=== PATIENT | female | born 1940 | race Caucasian/White ===

== ENCOUNTER 2016-06-25 15:45 | Emergency (ER) | payer MEDICARE, BC ==
[~2016-06-25] VITALS: Ht 157.5 cm; Wt 53.0 kg
[~2016-06-25 15:45] MED LIST: ACET500T68 PO; ALBU1.25 NEB; ALBU8.5H3 IH; AMOX1TAB58 PO; ASCO500T2 PO; ASPI81TA44 PO; AZIT250T6 PO; AZIT500T PO; CETI10TA22 PO; CHOL10003 PO; CITA40TA12 PO; ESCI20TA PO; ESTR1TAB15 PO; FLUT1DIS5 IH; FURO-69 PO; FURO80TA3 PO; GUAI-42 PO; LEVO250T25 PO; LEVO75TA5 PO; LIDO700A4 TD; MECL25TA3 PO; METH10TA4 PO; MONT10TA9 PO; OMEP20CA5 PO; ONDA-35 PO; PANT40TA5 PO; POTA20TA12 PO; POTA20TA82 PO; PRED-220 PO; PROM118S3 PO; PROM5SYR2 PO; ROFL500T PO; SULF1TAB23 PO; [UNRECOGNIZED DRUG - OTHER] PO
--- NOTE | 2016-06-25 16:27 | PHYS DOC ---
General Chief Complaint: BACK PAIN - NO INJURY Stated Complaint: LOW BACK PAIN Time Seen by MD: 15:50 Source: patient, old records Exam Limitations: no limitations Problems: History of Present Illness Initial Comments Pt is 76/F to ED c/o back pain. Pt has long h/o low back complaints, today states he has acute flare up of L low back pain. Points to left lower lumbar/SI region, denies recent injury. Sx are c/w prior exacerbations, no leg/bowel/bladder symptoms. She had pain management epidural one month ago and follows with pain mgmt. She took oxycodone 10mg before coming to ED, states it didn't help. Pain sharp/stabby, severe, worse with movement better with rest. No cp/sob/focal neurodef Timing/Duration: 4-6 hours Severity: severe Modifying Factors: worse with movement, improves with rest Associated Symptoms: other Allergies: Coded Allergies: Tetracyclines (Verified Allergy, Intermediate, Unknown, 03/04/15) adhesive (Verified Allergy, Intermediate, 03/04/15) amoxicillin (Verified Allergy, Intermediate, tingling sensation all over, 10/26/15) cefotaxime (Verified Allergy, Intermediate, 03/04/15) clavulanic acid (Verified Allergy, Intermediate, tingling sensation all over, 10/26/15) clindamycin (Verified Allergy, Intermediate, 03/04/15) vancomycin (Verified Allergy, Intermediate, 03/04/15) Past Medical History Medical History: other (chronic back pain, COPD, HLP, HTN, hypothyroid, renal insuff, UTI) Surgical History: other (kenia, CS, hysterectomy, knee replacement) Social History Smoker: non-smoker Alcohol: none Drugs: none Review of Systems Constitutional: denies chills, denies fever Respiratory: denies cough, denies shortness of breath Cardiovascular: denies chest pain, denies palpitations Gastrointestinal: denies abdominal pain, denies diarrhea, denies nausea, denies vomiting Genitourinary: denies dysuria, denies frequency, denies hematuria Musculoskeletal: see HPI Psychiatric/Neurological: see HPIdenies numbness, denies paresthesia, denies tingling, denies weakness Physical Exam General Appearance: WD/WN, mild distress Ear, Nose, Throat: hearing grossly normal, normal ENT inspection Neck: non-tender, supple Respiratory: normal breath sounds, no respiratory distress Gastrointestinal: non tender, soft Back: no CVA tenderness, no vertebral tenderness Extremities: non-tender, normal inspection Neurologic/Psychiatric: director of materials management II-XII nml as tested, no motor/sensory deficits, alert, normal mood/affect, oriented x 3, other (dtrs/strength/sensory equal/ intact b/l LE, neg SLR b/l) Skin: normal color, warm/dry Orders, Labs, Meds I discussed evaluation and treatment options, pt wants tx and d/c will return prn. She adds that she doesn't want to wait in ED to see if medication works, will return if needed. Departure Time of Disposition: 16:46 Disposition: 01 HOME, SELF-CARE Diagnosis: Acute on chronic low back pain Condition: STABLE Patient Instructions: Chronic Back Pain, Chronic Pain Management-Brief Additional Instructions: Activity as tolerated. No driving or operating machinery while sedated with meds. Continue current medications. Follow up with your doctor in 1-2 days for recheck. Return to ED with new or changing symptoms. LIZANDRO WELLS DO Jun 25, 2016 16:27
[2016-06-25] MEDS ORDERED: FENTANYL PF 100 MCG/2 ML VIAL. IM ONE (16:45)
[2016-06-25 17:30] VITALS: BP 136/54
== END 2016-06-25 17:43 | disposition home or self-care (01) ==
LOC: ER 15:45
DX: G89.29 Other chronic pain (principal); M54.5 Low back pain; J44.9 Chronic obstructive pulmonary disease, unspecified; E03.9 Hypothyroidism, unspecified; E78.5 Hyperlipidemia, unspecified; I10 Essential (primary) hypertension; Z87.440 Personal history of urinary (tract) infections; Z88.1 Allergy status to other antibiotic agents; Z88.8 Allergy status to other drugs, medicaments and biological substances; N28.9 Disorder of kidney and ureter, unspecified
CPT/HCPCS: 96372; 99284; J3010

== ENCOUNTER 2016-09-18 11:08 | Inpatient (IN) | payer MEDICARE, BC ==
[~2016-09-18] VITALS: Ht 157.5 cm; Wt 64.6 kg
[~2016-09-18 11:08] MED LIST changes: -ALBU8.5H3 IH; +ALBU8.5H8 IH; -ESCI20TA PO; +ESCITALOPRAM OX20 MG PO; +GUAI-107 PO; -GUAI-42 PO; -ONDA-35 PO; +ONDA4TAB11 PO; -ROFL500T PO; +ROFL500T7 PO
[2016-09-18] MEDS ORDERED: ALPR0.254 PO (12:04)
[2016-09-18] MEDS ORDERED: OXYC-323 PO (12:04)
[2016-09-18] MEDS ORDERED: ACET325T21 PO (12:04)
[2016-09-18] MEDS ORDERED: IPRA3AMP NEB (12:04)
[2016-09-18] MEDS ORDERED: ALBU90AE IH (12:04)
[2016-09-18] MEDS ORDERED: GUAI120L35 PO (12:10)
[2016-09-18] MEDS ORDERED: DILT240C2 PO (12:11)
[2016-09-18] MEDS ORDERED: POTA10CA PO (12:19)
[2016-09-18] MEDS ORDERED: MECL12.52 PO (12:19)
[2016-09-18] MEDS ORDERED: DOCU100C28 PO (12:19)
[2016-09-18] MEDS ORDERED: SENN-37 PO (12:21)
[2016-09-18] MEDS ORDERED: ENOX40DI SQ (12:21)
[2016-09-18] MEDS ORDERED: MAGN400O7 PO (12:23)
[2016-09-18] MEDS ORDERED: PANT40TA5 PO (12:25)
[2016-09-18] MEDS ORDERED: POLY255P PO (12:26)
[2016-09-18] MEDS ORDERED: PRED-220 PO (12:30)
[2016-09-18] MEDS ORDERED: PSYL1PAC7 PO (12:43)
[2016-09-18 14:45] VITALS: BP 143/71
[2016-09-18] MEDS ORDERED: IPRATRPIUM/ALBUTEROL 0.5/2.5MG 3 ML NEBU. NEB PRN (15:00)
[2016-09-18] MEDS ORDERED: NON FORMULARY ITEM (Albuterol Sulfate (Proair Respiclick) 1 PUFF) IH PRN (15:00)
[2016-09-18] MEDS ORDERED: MECLIZINE 12.5 MG TABLET. PO PRN (15:00)
[2016-09-18] MEDS ORDERED: MAGNESIUM HYDROXIDE 2,400 MG/30 ML ORAL.SUSP. PO PRN (15:00)
[2016-09-18] MEDS ORDERED: ONDANSETRON ODT 4 MG TAB.RAPDIS PO PRN (15:15)
[2016-09-18] MEDS ORDERED: guaiFENesin/CODEINE 100mg/10mg 5 ML LIQUID PO PRN (15:15)
[2016-09-18] MEDS ORDERED: PSYLLIUM SEED (WITH SUGAR) PACKET. PO PRN (16:15)
[2016-09-18] MEDS: POTASSIUM CHLORIDE 10 MEQ TABLET.ER. PO SCH (16:55)
[2016-09-18 17:51] VITALS: BP 140/60
[2016-09-18] MEDS: SENNOSIDES/DOCUSATE 8.6/50MG TABLET. PO SCH (20:22)
[2016-09-18] MEDS: ACETAMINOPHEN 325 MG TABLET PO PRN (20:22)
[2016-09-18] MEDS: DOCUSATE SODIUM 100 MG CAPSULE PO SCH (20:22)
[2016-09-18] MEDS: PANTOPRAZOLE 40 MG TABLET. PO SCH (20:23)
[2016-09-18] MEDS: oxyCODONE/APAP 5/325 1 TAB TABLET PO PRN (22:38)
[2016-09-19 06:04] VITALS: BP 149/66
[2016-09-19] MEDS ORDERED: POLYETHYLENE GLYCOL 3350 17 GM PACKET. PO PRN (09:00)
[2016-09-19] MEDS: DOCUSATE SODIUM 100 MG CAPSULE PO SCH ×2 (09:14→19:29)
[2016-09-19] MEDS: CETIRIZINE HCL 10 MG TABLET PO SCH (09:14)
[2016-09-19] MEDS: ASCORBIC ACID 500 MG TABLET PO SCH (09:15)
[2016-09-19] MEDS: FUROSEMIDE 20 MG TABLET PO SCH (09:15)
[2016-09-19] MEDS: predniSONE 10 MG TABLET PO SCH (09:15)
[2016-09-19] MEDS: LEVOTHYROXINE 75 MCG TABLET PO SCH (09:15)
[2016-09-19] MEDS: PANTOPRAZOLE 40 MG TABLET. PO SCH ×2 (09:15→19:29)
[2016-09-19] MEDS: POTASSIUM CHLORIDE 10 MEQ TABLET.ER. PO SCH ×2 (09:15→17:53)
[2016-09-19] MEDS: MONTELUKAST 10 MG TABLET. PO SCH (09:15)
[2016-09-19] MEDS: CHOLECALCIFEROL (VITAMIN D3) 1,000 UNIT TABLET PO SCH (09:15)
[2016-09-19] MEDS: SENNOSIDES/DOCUSATE 8.6/50MG TABLET. PO SCH ×2 (09:15→19:29)
[2016-09-19] MEDS: ENOXAPARIN 40 MG/0.4 ML DISP.SYRIN. SQ SCH (09:16)
[2016-09-19] MEDS: oxyCODONE/APAP 5/325 1 TAB TABLET PO PRN ×3 (09:22→20:42)
[2016-09-19] MEDS: BUDESONIDE 0.5 MG/2 ML NEBU NEB SCH (11:34)
--- NOTE | 2016-09-19 11:57 | PDOC1 ---
HISTORY & PHYSICAL DATE OF ADMISSION: 09/18/16 HPI: HPI: This is a 76-year-old female who was transferred to the swing bed at [facility] from [facility] for rehabilitation after surgery for a right comminuted distal femur Bony prosthetic fracture. Due to the nature of the fracture she was transferred from [facility] to [place] to be under the care of a physician who is well versed in this type of situation. This fracture happened after she fell at home. And at [facility] she underwent a revision right total knee arthroplasty with a distal femoral implant and a tibial implant. His mood admitted to swing bed for continued rehabilitation post surgery. PAST MEDICAL HISTORY: PMH: 1 COPD #2 chronic bronchitis #3 hypothyroidism #4 depression #5 allergic rhinitis 6 hypertension #7 esophageal stenosis #8 history of sleep apnea #9 chronic hypoxic respiratory failure uses oxygen as needed #10 history of recurrent bronchitis alveolitis with mucous plugging PSH: #1 status post repair of distal femoral Bony's prosthetic fracture of the right femur Vertebral appendectomy 3- 4 exploratory lap with a cyst removal 5 sinus surgery 3/ 6 breasts breast reduction #7 cholecystectomy #8 hysterectomy #9 surgery for acid reflux SH: Patient is a . Her about a year and half ago. She lives alone. She has 2 sons that are very attentive and to her and check on her daily she is a lifelong nonsmoker, no alcohol. PFMH: Family history: Parents had diabetes and osteoarthritis. Her mother of a stroke her father of heart disease ALLERGIES: Allergies Coded Allergies Type Severity Reaction Last Updated Verified Tetracyclines Allergy Intermediate Unknown 03/04/15 Yes adhesive Allergy Intermediate 03/04/15 Yes amoxicillin Allergy Intermediate tingling sensation all over 10/26/15 Yes cefotaxime Allergy Intermediate 03/04/15 Yes clavulanic acid Allergy Intermediate tingling sensation all over 10/26/15 Yes clindamycin Allergy Intermediate 03/04/15 Yes vancomycin Allergy Intermediate 03/04/15 Yes MEDS: MEDICATIONS: Occasions were reviewed and are available on the monitor Current Medications Medications (Trade) Dose Ordered Sig/Delmi Start Time Stop Time Status Last Admin Dose Admin Acetaminophen (Tylenol) 325 mg PRN Q4HRS PRN 09/18/16 15:00 09/18/16 20:22 325 MG Albuterol/ Ipratropium (Duoneb) 3 ml PRN QID PRN 09/18/16 15:00 09/19/16 11:33 3 ML Alprazolam (Xanax) 0.25 mg TID PRN PRN 09/18/16 16:15 Ascorbic Acid (Vitamin C) 500 mg DAILY 09/19/16 09:00 09/19/16 09:15 500 MG Budesonide (Pulmicort) 0.5 mg DAILY 09/19/16 09:00 09/19/16 11:34 0.5 MG Cetirizine HCl (ZyrTEC) 10 mg DAILY 09/19/16 09:00 09/19/16 09:14 10 MG Diltiazem HCl (Cardizem 24hr Cd) 240 mg DAILY 09/19/16 09:00 09/19/16 09:15 240 MG Docusate Sodium (Colace) 100 mg BID 09/18/16 21:00 09/19/16 09:14 100 MG Enoxaparin Sodium (Lovenox) 40 mg DAILY 09/19/16 09:00 10/01/16 08:59 09/19/16 09:16 40 MG Furosemide (Lasix) 20 mg DAILY 09/19/16 09:00 09/19/16 09:15 20 MG Guaifenesin/ Codeine Phosphate (Robitussin Ac) 5 ml PRN Q6HRS PRN 09/18/16 15:15 Levothyroxine Sodium (Synthroid) 75 mcg DAILY 09/19/16 09:00 09/19/16 09:15 75 MCG Magnesium Hydroxide (Milk Of Magnesia) 2,400 mg PRN DAILY PRN 09/18/16 15:00 Meclizine HCl (Antivert) 12.5 mg TID PRN PRN 09/18/16 15:00 Montelukast Sodium (Singulair) 10 mg DAILY 09/19/16 09:00 09/19/16 09:15 10 MG Non-Formulary Medication 1 puff PRN Q4HRS PRN 09/18/16 15:00 09/18/16 15:01 DC Ondansetron HCl (Zofran Odt) 4 mg PRN Q12HR PRN 09/18/16 15:15 Oxycodone/ Acetaminophen (Percocet 5/325) 2 tab PRN Q4HRS PRN 09/18/16 15:00 09/19/16 09:22 2 TAB Pantoprazole Sodium (Protonix) 40 mg BID 09/18/16 21:00 09/19/16 09:15 40 MG Polyethylene Glycol (miraLAX) 17 gm PRN DAILY PRN 09/19/16 09:00 Potassium Chloride (Klor-Con) 10 meq BIDWMEALS 09/18/16 17:00 09/19/16 09:15 10 MEQ Prednisone (Prednisone) 30 mg Taper DAILY 09/19/16 09:00 09/25/16 08:59 09/19/16 09:15 30 MG Psyllium Hydrophilic Mucilloid (Metamucil) 1 pkt PRN DAILY PRN 09/18/16 16:15 Senna/Docusate Sodium (Senna Plus) 1 tab BID 09/18/16 21:00 09/19/16 09:15 1 TAB Vitamin D (Vitamin D3) 2,000 unit DAILY 09/19/16 09:00 09/19/16 09:15 2,000 UNIT VITALS: Vital Signs Date Time Temp Pulse Resp B/P (MAP) Pulse Ox O2 Delivery O2 Flow Rate FiO2 09/19/16 11:34 99 Room Air 09/19/16 09:15 63 149/66 09/19/16 06:04 98.2 16 ROS: Review of systems is positive for ongoing pain in the leg and the surgical right leg.Otherwise negative PHYSICAL EXAM: 76-year-old female in no acute distress patient's eyes are clear in the inner canthus of the left eye on the skin she has a medium sized bruise pupils are small but reactive. Her tongue was moist. Throat was clear. Neck was supple without adenopathy. Lungs are clear to auscultations without without wheezes or rhonchi. Cardiovascular regular rhythm and rate with a 2/6 systolic murmur. Her abdomen was soft nontender Right extremity entire right leg is swollen there is a new brace of some kind in place the bandage is and pictures of the surgical area were noted. She has a few open areas that are healing nicely and do not appear to be infected Mental status she is alert and oriented, and cooperative VTE PROPHYLAXIS: VTE Prophylaxis Devices: Contrainidicated ASSESSMENT/PLAN ASSESSMENT: As above PLAN: Check labs periodically. Monitor her pain. DVT prophylaxis contraindicated due to previous history of GI bleed. Continue PT and OT. Patient will need hayley out in 2 weeks JANE COSTELLO DO Sep 19, 2016 11:57
[2016-09-19 18:36] VITALS: BP 123/56
[2016-09-20 08:00] VITALS: BP 145/83
[2016-09-20] MEDS: PANTOPRAZOLE 40 MG TABLET. PO SCH ×2 (08:41→21:07)
[2016-09-20] MEDS: predniSONE 10 MG TABLET PO SCH (08:41)
[2016-09-20] MEDS: CHOLECALCIFEROL (VITAMIN D3) 1,000 UNIT TABLET PO SCH (08:41)
[2016-09-20] MEDS: SENNOSIDES/DOCUSATE 8.6/50MG TABLET. PO SCH ×2 (08:41→21:00)
[2016-09-20] MEDS: MONTELUKAST 10 MG TABLET. PO SCH (08:42)
[2016-09-20] MEDS: ASCORBIC ACID 500 MG TABLET PO SCH (08:44)
[2016-09-20] MEDS: FUROSEMIDE 20 MG TABLET PO SCH (08:44)
[2016-09-20] MEDS: POTASSIUM CHLORIDE 10 MEQ TABLET.ER. PO SCH ×2 (08:44→17:50)
[2016-09-20] MEDS: LEVOTHYROXINE 75 MCG TABLET PO SCH (08:44)
[2016-09-20] MEDS: CETIRIZINE HCL 10 MG TABLET PO SCH (08:44)
[2016-09-20] MEDS: DOCUSATE SODIUM 100 MG CAPSULE PO SCH ×2 (09:00→21:00)
[2016-09-20] MEDS: ENOXAPARIN 40 MG/0.4 ML DISP.SYRIN. SQ SCH (09:04)
[2016-09-20] MEDS: oxyCODONE/APAP 5/325 1 TAB TABLET PO PRN ×2 (09:39→13:47)
[2016-09-20] MEDS: BUDESONIDE 0.5 MG/2 ML NEBU NEB SCH (09:52)
[2016-09-20 19:15] VITALS: BP 116/67
[2016-09-21] MEDS: oxyCODONE/APAP 5/325 1 TAB TABLET PO PRN ×3 (05:52→16:16)
[2016-09-21 08:00] VITALS: BP 141/83
[2016-09-21] MEDS: MONTELUKAST 10 MG TABLET. PO SCH (08:44)
[2016-09-21] MEDS: FUROSEMIDE 20 MG TABLET PO SCH (08:44)
[2016-09-21] MEDS: ENOXAPARIN 40 MG/0.4 ML DISP.SYRIN. SQ SCH (08:44)
[2016-09-21] MEDS: CHOLECALCIFEROL (VITAMIN D3) 1,000 UNIT TABLET PO SCH (08:44)
[2016-09-21] MEDS: ASCORBIC ACID 500 MG TABLET PO SCH (08:44)
[2016-09-21] MEDS: predniSONE 10 MG TABLET PO SCH (08:45)
[2016-09-21] MEDS: CETIRIZINE HCL 10 MG TABLET PO SCH (08:45)
[2016-09-21] MEDS: PANTOPRAZOLE 40 MG TABLET. PO SCH ×2 (08:45→20:15)
[2016-09-21] MEDS: POTASSIUM CHLORIDE 10 MEQ TABLET.ER. PO SCH ×2 (08:45→17:45)
[2016-09-21] MEDS: LEVOTHYROXINE 75 MCG TABLET PO SCH (08:45)
[2016-09-21] MEDS: SENNOSIDES/DOCUSATE 8.6/50MG TABLET. PO SCH ×2 (09:00→19:49)
[2016-09-21] MEDS: DOCUSATE SODIUM 100 MG CAPSULE PO SCH ×2 (09:00→19:49)
[2016-09-21] MEDS: BUDESONIDE 0.5 MG/2 ML NEBU NEB SCH (10:04)
[2016-09-21 18:57] VITALS: BP 123/68
[2016-09-22] MEDS: oxyCODONE/APAP 5/325 1 TAB TABLET PO PRN ×3 (03:50→20:09)
[2016-09-22 05:42] VITALS: BP 137/65
[2016-09-22 07:17] VITALS: BP 133/52
[2016-09-22] MEDS: FUROSEMIDE 20 MG TABLET PO SCH (08:24)
[2016-09-22] MEDS: CHOLECALCIFEROL (VITAMIN D3) 1,000 UNIT TABLET PO SCH (08:24)
[2016-09-22] MEDS: PANTOPRAZOLE 40 MG TABLET. PO SCH ×2 (08:25→20:08)
[2016-09-22] MEDS: ASCORBIC ACID 500 MG TABLET PO SCH (08:25)
[2016-09-22] MEDS: LEVOTHYROXINE 75 MCG TABLET PO SCH (08:25)
[2016-09-22] MEDS: CETIRIZINE HCL 10 MG TABLET PO SCH (08:25)
[2016-09-22] MEDS: predniSONE 10 MG TABLET PO SCH (08:25)
[2016-09-22] MEDS: MONTELUKAST 10 MG TABLET. PO SCH (08:25)
[2016-09-22] MEDS: POTASSIUM CHLORIDE 10 MEQ TABLET.ER. PO SCH ×2 (08:26→17:24)
[2016-09-22] MEDS: ENOXAPARIN 40 MG/0.4 ML DISP.SYRIN. SQ SCH (08:28)
[2016-09-22] MEDS: DOCUSATE SODIUM 100 MG CAPSULE PO SCH ×2 (08:31→20:08)
[2016-09-22] MEDS: SENNOSIDES/DOCUSATE 8.6/50MG TABLET. PO SCH ×2 (08:31→20:08)
[2016-09-22] MEDS: BUDESONIDE 0.5 MG/2 ML NEBU NEB SCH (11:57)
[2016-09-22 20:06] VITALS: BP 122/63
[2016-09-23 07:30] VITALS: BP 175/73
[2016-09-23] MEDS: LEVOTHYROXINE 75 MCG TABLET PO SCH (07:51)
[2016-09-23] MEDS: oxyCODONE/APAP 5/325 1 TAB TABLET PO PRN ×3 (07:51→19:45)
[2016-09-23] MEDS: predniSONE 10 MG TABLET PO SCH (07:52)
[2016-09-23] MEDS: ASCORBIC ACID 500 MG TABLET PO SCH (07:52)
[2016-09-23] MEDS: PANTOPRAZOLE 40 MG TABLET. PO SCH ×2 (07:53→19:45)
[2016-09-23] MEDS: MONTELUKAST 10 MG TABLET. PO SCH (07:53)
[2016-09-23] MEDS: CHOLECALCIFEROL (VITAMIN D3) 1,000 UNIT TABLET PO SCH (07:53)
[2016-09-23] MEDS: FUROSEMIDE 20 MG TABLET PO SCH (07:53)
[2016-09-23] MEDS: CETIRIZINE HCL 10 MG TABLET PO SCH (07:53)
[2016-09-23] MEDS: POTASSIUM CHLORIDE 10 MEQ TABLET.ER. PO SCH ×2 (07:53→16:31)
[2016-09-23] MEDS: ENOXAPARIN 40 MG/0.4 ML DISP.SYRIN. SQ SCH (07:55)
[2016-09-23] MEDS: BUDESONIDE 0.5 MG/2 ML NEBU NEB SCH (09:00)
[2016-09-23] MEDS: SENNOSIDES/DOCUSATE 8.6/50MG TABLET. PO SCH ×2 (09:00→19:45)
[2016-09-23] MEDS: DOCUSATE SODIUM 100 MG CAPSULE PO SCH ×2 (09:00→19:44)
[2016-09-24 05:25] VITALS: BP 139/58
[2016-09-24 08:23] LABS: ALBUMIN/GLOBULIN RATIO 0.8 (1.0-1.7); CALCIUM 7.7 mg/dL (8.5-10.1); CREATININE 1.5 mg/dL (0.6-1.0); GFR 33.9; MAGNESIUM 2.1 mg/dL (1.8-2.4); POTASSIUM 4.2 mmol/L (3.5-5.1); TOTAL BILIRUBIN 0.5 mg/dL (0.2-1.0); TOTAL PROTEIN 4.6 g/dL (6.4-8.2)
[2016-09-24 08:33] LABS: BASO % 0 % (0-3); EOS # 0.1 x10^3/uL (0.0-0.7); EOS % 1 % (0-3); HEMATOCRIT 27.6 % (36.0-47.0); HEMOGLOBIN 9.1 g/dL (12.0-15.5); LYMPH # 3.9 x10^3/uL (1.0-4.8); LYMPH % 34 % (24-48); MEAN CORPUSCULAR HEMOGLOBIN 30 pg (25-35); MEAN CORPUSCULAR HGB CONC 33 g/dL (31-37); MEAN CORPUSCULAR VOLUME 90 fL (79-100); MONO # 1.4 x10^3/uL (0.0-1.1); MONO % 12 % (0-9); NEUT # 6.1 x10^3uL (1.8-7.7); NEUT % 53 % (31-73); PLATELET COUNT 246 x10^3/uL (140-400); RED BLOOD COUNT 3.08 x10^6/uL (3.50-5.40); WHITE BLOOD COUNT 11.5 x10^3/uL (4.0-11.0)
[2016-09-24] MEDS: POTASSIUM CHLORIDE 10 MEQ TABLET.ER. PO SCH ×2 (08:40→16:54)
[2016-09-24] MEDS: predniSONE 10 MG TABLET PO SCH (08:44)
[2016-09-24] MEDS: MONTELUKAST 10 MG TABLET. PO SCH (08:44)
[2016-09-24] MEDS: ASCORBIC ACID 500 MG TABLET PO SCH (08:45)
[2016-09-24] MEDS: PANTOPRAZOLE 40 MG TABLET. PO SCH ×2 (08:45→20:34)
[2016-09-24] MEDS: CHOLECALCIFEROL (VITAMIN D3) 1,000 UNIT TABLET PO SCH (08:45)
[2016-09-24] MEDS: CETIRIZINE HCL 10 MG TABLET PO SCH (08:45)
[2016-09-24] MEDS: oxyCODONE/APAP 5/325 1 TAB TABLET PO PRN ×4 (08:47→20:35)
[2016-09-24] MEDS: LEVOTHYROXINE 75 MCG TABLET PO SCH (08:47)
[2016-09-24] MEDS: FUROSEMIDE 20 MG TABLET PO SCH (08:47)
[2016-09-24] MEDS: DOCUSATE SODIUM 100 MG CAPSULE PO SCH ×2 (08:48→19:46)
[2016-09-24] MEDS: SENNOSIDES/DOCUSATE 8.6/50MG TABLET. PO SCH ×2 (08:48→19:47)
[2016-09-24] MEDS: BUDESONIDE 0.5 MG/2 ML NEBU NEB SCH (09:00)
[2016-09-24] MEDS: ENOXAPARIN 40 MG/0.4 ML DISP.SYRIN. SQ SCH (10:05)
[2016-09-24 17:36] VITALS: BP 107/58
[2016-09-25] MEDS: oxyCODONE/APAP 5/325 1 TAB TABLET PO PRN ×4 (05:39→19:08)
[2016-09-25 05:45] VITALS: BP 147/63
[2016-09-25 08:10] LABS: CALCIUM 7.6 mg/dL (8.5-10.1); CREATININE 1.6 mg/dL (0.6-1.0); GFR 31.4; POTASSIUM 4.1 mmol/L (3.5-5.1)
[2016-09-25 08:28] LABS: HEMATOCRIT 27.7 % (36.0-47.0); HEMOGLOBIN 8.9 g/dL (12.0-15.5); RED BLOOD COUNT 3.07 x10^6/uL (3.50-5.40); RED CELL DISTRIBUTION WIDTH 16.2 % (11.5-14.5); WHITE BLOOD COUNT 12.6 x10^3/uL (4.0-11.0)
[2016-09-25] MEDS: BUDESONIDE 0.5 MG/2 ML NEBU NEB SCH (09:00)
[2016-09-25] MEDS: SENNOSIDES/DOCUSATE 8.6/50MG TABLET. PO SCH ×2 (09:00→20:26)
[2016-09-25] MEDS: DOCUSATE SODIUM 100 MG CAPSULE PO SCH ×2 (09:00→20:26)
[2016-09-25] MEDS: POTASSIUM CHLORIDE 10 MEQ TABLET.ER. PO SCH ×2 (09:08→18:05)
[2016-09-25] MEDS: PANTOPRAZOLE 40 MG TABLET. PO SCH ×2 (09:09→19:07)
[2016-09-25] MEDS: FUROSEMIDE 20 MG TABLET PO SCH (09:09)
[2016-09-25] MEDS: MONTELUKAST 10 MG TABLET. PO SCH (09:09)
[2016-09-25] MEDS: LEVOTHYROXINE 75 MCG TABLET PO SCH (09:09)
[2016-09-25] MEDS: ENOXAPARIN 40 MG/0.4 ML DISP.SYRIN. SQ SCH (09:10)
[2016-09-25] MEDS: CETIRIZINE HCL 10 MG TABLET PO SCH (09:10)
[2016-09-25] MEDS: CHOLECALCIFEROL (VITAMIN D3) 1,000 UNIT TABLET PO SCH (09:10)
[2016-09-25] MEDS: ASCORBIC ACID 500 MG TABLET PO SCH (09:10)
[2016-09-25 10:20] VITALS: BP 126/61
[2016-09-25] MEDS ORDERED: IRON SUCROSE COMPLEX 200 MG in IV NORMAL SALINE 100ML 100 ML IV ONE (16:30)
[2016-09-25 17:02] VITALS: BP 102/60
[2016-09-25 17:23] VITALS: BP 105/57
[2016-09-25 22:24] LABS: FECAL OB PT NEGATIVE (NEG)
[2016-09-26] MEDS: oxyCODONE/APAP 5/325 1 TAB TABLET PO PRN ×4 (02:43→19:49)
[2016-09-26 05:04] VITALS: BP 129/65
[2016-09-26 06:48] LABS: CALCIUM 7.3 mg/dL (8.5-10.1); CREATININE 1.5 mg/dL (0.6-1.0); GFR 33.9
[2016-09-26] MEDS: POTASSIUM CHLORIDE 10 MEQ TABLET.ER. PO SCH ×3 (08:14→19:48)
[2016-09-26] MEDS: CHOLECALCIFEROL (VITAMIN D3) 1,000 UNIT TABLET PO SCH (08:15)
[2016-09-26] MEDS: LEVOTHYROXINE 75 MCG TABLET PO SCH (08:15)
[2016-09-26] MEDS: MONTELUKAST 10 MG TABLET. PO SCH (08:15)
[2016-09-26] MEDS: DOCUSATE SODIUM 100 MG CAPSULE PO SCH ×2 (08:15→19:49)
[2016-09-26] MEDS: CETIRIZINE HCL 10 MG TABLET PO SCH (08:15)
[2016-09-26] MEDS: PANTOPRAZOLE 40 MG TABLET. PO SCH ×2 (08:15→19:49)
[2016-09-26] MEDS: ASCORBIC ACID 500 MG TABLET PO SCH (08:15)
[2016-09-26] MEDS: ENOXAPARIN 40 MG/0.4 ML DISP.SYRIN. SQ SCH (08:17)
[2016-09-26] MEDS: SENNOSIDES/DOCUSATE 8.6/50MG TABLET. PO SCH ×2 (08:18→19:01)
[2016-09-26] MEDS: BUDESONIDE 0.5 MG/2 ML NEBU NEB SCH (09:00)
[2016-09-26] MEDS: ESCITALOPRAM 20 MG TABLET. PO SCH (11:11)
[2016-09-26] MEDS: ALPRAZolam 0.25 MG TABLET PO PRN (11:11)
[2016-09-26 18:10] VITALS: BP 103/55
--- NOTE | 2016-09-26 23:31 | PN ---
DATE: 09/25/2016 SUBJECTIVE: The patient is a 76-year-old female patient who apparently was seen and was admitted to [facility]. She underwent revision of the right total knee arthroplasty after she fell and sustained a right periprosthetic femoral fracture and from there, she was admitted to swing bed in [facility]. Apparently while at [place] she developed acute blood loss anemia and she received 2 units of packed RBCs. The nursing staff are concerned today that her complaint of pain is worse than last 10 days that she was here. Her hemoglobin is trending down. Her BUN and creatinine are rising. PHYSICAL EXAMINATION: GENERAL: When I examined her this afternoon, she was sitting in her chair comfortably in no apparent distress. She was slightly pale, but no jaundice, cyanosis, or thyromegaly. No jugular venous distention. No lower limb edema. VITAL SIGNS: Her heart rate was 92, blood pressure was 126/61, temperature was 98, respiratory rate 20, and oxygen saturation was 100%. HEAD, EYES, EARS, NOSE AND THROAT: Showed normocephalic, atraumatic. WOUND EXAM: Her surgical wound seems to be healing nicely with no redness, tenderness or discharge. LABORATORY DATA: As of this morning showed a white cell count 12,600, hemoglobin 8.9, hematocrit 27.7, MCV 90 and platelet count 239,000. Her chemistry showed a serum sodium 144, potassium 4.1, chloride 106, bicarbonate 38, BUN 25, creatinine 1.6, estimated GFR was 51 mL per minute. Her glucose 88, calcium was 7.6. Total bilirubin, AST, ALT, alkaline phosphatase were normal. Total protein was 4.6, albumin 2. Her 25-hydroxy vitamin D was 42.9. ASSESSMENT: Wwexs-ri-cemccib kidney injury. Her BUN and creatinine has risen from 25/1.6 from her normal range of 1.2. In fact, her baseline kidney function showed that her BUN was 21, creatinine 1.3. Her H and H is trending down slightly. Her serum iron is 39, total iron binding capacity was 236 and percent saturation was low at 17%. She has also protein-calorie malnutrition. Her serum albumin is only 2 g/dL. PLAN: My plan is to basically discontinue her Lasix temporarily, scan her bladder, and check her stool for occult blood. I will add also serum ferritin and start her on Venofer and increase her pain medication to two tablets every 4 hours while awake. We will monitor her lab works closely and decide on further management accordingly. JANE MORILLO MD DR: CONG/dilip JOB#: [id number] / [id number]
[2016-09-27] MEDS: oxyCODONE/APAP 5/325 1 TAB TABLET PO PRN ×3 (06:34→14:56)
[2016-09-27 06:36] VITALS: BP 101/50
[2016-09-27] MEDS: ASCORBIC ACID 500 MG TABLET PO SCH (08:36)
[2016-09-27] MEDS: MONTELUKAST 10 MG TABLET. PO SCH (08:37)
[2016-09-27] MEDS: CHOLECALCIFEROL (VITAMIN D3) 1,000 UNIT TABLET PO SCH (08:37)
[2016-09-27] MEDS: CETIRIZINE HCL 10 MG TABLET PO SCH (08:37)
[2016-09-27] MEDS: ESCITALOPRAM 20 MG TABLET. PO SCH (08:44)
[2016-09-27] MEDS: LEVOTHYROXINE 75 MCG TABLET PO SCH (08:44)
[2016-09-27] MEDS: PANTOPRAZOLE 40 MG TABLET. PO SCH ×2 (08:45→19:32)
[2016-09-27] MEDS: POTASSIUM CHLORIDE 10 MEQ TABLET.ER. PO SCH ×2 (08:45→19:32)
[2016-09-27] MEDS: SENNOSIDES/DOCUSATE 8.6/50MG TABLET. PO SCH ×2 (08:46→19:32)
[2016-09-27] MEDS: ENOXAPARIN 30 MG/0.3 ML DISP.SYRIN. SQ SCH (08:46)
[2016-09-27] MEDS: DOCUSATE SODIUM 100 MG CAPSULE PO SCH ×2 (08:47→19:32)
[2016-09-27] MEDS: BUDESONIDE 0.5 MG/2 ML NEBU NEB SCH (09:00)
[2016-09-27] MEDS ORDERED: MAG HYDROX/AL HYDROX/SIMETH 30 ML ORAL.SUSP PO ONE (09:45)
[2016-09-27] MEDS: LIDOCAINE (700MG/PATCH) PATCH. TD PRN (14:57)
[2016-09-27 19:14] VITALS: BP 107/63
[2016-09-28 04:15] LABS: HEMATOCRIT 25.1 % (36.0-47.0); HEMOGLOBIN 8.2 g/dL (12.0-15.5); RED BLOOD COUNT 2.76 x10^6/uL (3.50-5.40); RED CELL DISTRIBUTION WIDTH 16.8 % (11.5-14.5); WHITE BLOOD COUNT 9.1 x10^3/uL (4.0-11.0)
[2016-09-28 04:46] VITALS: BP 105/46
[2016-09-28 05:00] LABS: ALBUMIN 1.9 g/dL (3.4-5.0); ALBUMIN/GLOBULIN RATIO 0.7 (1.0-1.7); CALCIUM 7.4 mg/dL (8.5-10.1); CREATININE 1.5 mg/dL (0.6-1.0); GFR 33.9; POTASSIUM 4.5 mmol/L (3.5-5.1); TOTAL BILIRUBIN 0.5 mg/dL (0.2-1.0); TOTAL PROTEIN 4.6 g/dL (6.4-8.2)
[2016-09-28] MEDS: POTASSIUM CHLORIDE 10 MEQ TABLET.ER. PO SCH ×2 (08:22→17:07)
[2016-09-28] MEDS: LEVOTHYROXINE 75 MCG TABLET PO SCH (08:22)
[2016-09-28] MEDS: ASCORBIC ACID 500 MG TABLET PO SCH (08:22)
[2016-09-28] MEDS: MONTELUKAST 10 MG TABLET. PO SCH (08:22)
[2016-09-28] MEDS: ESCITALOPRAM 20 MG TABLET. PO SCH (08:22)
[2016-09-28] MEDS: CETIRIZINE HCL 10 MG TABLET PO SCH (08:23)
[2016-09-28] MEDS: CHOLECALCIFEROL (VITAMIN D3) 1,000 UNIT TABLET PO SCH (08:24)
[2016-09-28] MEDS: PANTOPRAZOLE 40 MG TABLET. PO SCH ×2 (08:24→19:02)
[2016-09-28] MEDS: ENOXAPARIN 30 MG/0.3 ML DISP.SYRIN. SQ SCH (08:24)
[2016-09-28] MEDS: DOCUSATE SODIUM 100 MG CAPSULE PO SCH ×2 (08:34→19:00)
[2016-09-28] MEDS: SENNOSIDES/DOCUSATE 8.6/50MG TABLET. PO SCH ×2 (08:34→19:00)
[2016-09-28] MEDS: BUDESONIDE 0.5 MG/2 ML NEBU NEB SCH (09:00)
[2016-09-28 17:20] VITALS: BP 159/67
[2016-09-28] MEDS: ACETAMINOPHEN 325 MG TABLET PO PRN (17:34)
[2016-09-28] MEDS: oxyCODONE/APAP 5/325 1 TAB TABLET PO PRN (19:02)
[2016-09-29 04:46] VITALS: BP 139/61
[2016-09-29] MEDS: oxyCODONE/APAP 5/325 1 TAB TABLET PO PRN (06:45)
[2016-09-29] MEDS: POTASSIUM CHLORIDE 10 MEQ TABLET.ER. PO SCH ×2 (08:09→17:26)
[2016-09-29] MEDS: DOCUSATE SODIUM 100 MG CAPSULE PO SCH ×3 (08:15→19:20)
[2016-09-29] MEDS: ESCITALOPRAM 20 MG TABLET. PO SCH (08:15)
[2016-09-29] MEDS: PANTOPRAZOLE 40 MG TABLET. PO SCH ×2 (08:15→19:20)
[2016-09-29] MEDS: MONTELUKAST 10 MG TABLET. PO SCH (08:16)
[2016-09-29] MEDS: LEVOTHYROXINE 75 MCG TABLET PO SCH (08:16)
[2016-09-29] MEDS: SENNOSIDES/DOCUSATE 8.6/50MG TABLET. PO SCH ×2 (08:16→19:23)
[2016-09-29] MEDS: CETIRIZINE HCL 10 MG TABLET PO SCH (08:16)
[2016-09-29] MEDS: ASCORBIC ACID 500 MG TABLET PO SCH (08:16)
[2016-09-29] MEDS: CHOLECALCIFEROL (VITAMIN D3) 1,000 UNIT TABLET PO SCH (08:16)
[2016-09-29] MEDS: ENOXAPARIN 30 MG/0.3 ML DISP.SYRIN. SQ SCH (08:17)
[2016-09-29] MEDS: LIDOCAINE (700MG/PATCH) PATCH. TD PRN (08:30)
[2016-09-29] MEDS ORDERED: ASCORBIC ACID 500 MG TABLET PO SCH (09:00)
[2016-09-29] MEDS: BUDESONIDE 0.5 MG/2 ML NEBU NEB SCH (09:00)
[2016-09-29] MEDS ORDERED: FUROSEMIDE 20 MG TABLET PO ONE (17:00)
[2016-09-29 18:53] VITALS: BP 132/71
[2016-09-30 05:34] VITALS: BP 134/66
[2016-09-30] MEDS: POTASSIUM CHLORIDE 10 MEQ TABLET.ER. PO SCH ×2 (07:57→16:29)
[2016-09-30] MEDS: ESCITALOPRAM 20 MG TABLET. PO SCH (07:58)
[2016-09-30] MEDS: PANTOPRAZOLE 40 MG TABLET. PO SCH ×2 (07:58→20:02)
[2016-09-30] MEDS: DOCUSATE SODIUM 100 MG CAPSULE PO SCH ×2 (07:58→20:02)
[2016-09-30] MEDS: LEVOTHYROXINE 75 MCG TABLET PO SCH (07:59)
[2016-09-30] MEDS: MONTELUKAST 10 MG TABLET. PO SCH (07:59)
[2016-09-30] MEDS: SENNOSIDES/DOCUSATE 8.6/50MG TABLET. PO SCH ×2 (07:59→20:02)
[2016-09-30] MEDS: CETIRIZINE HCL 10 MG TABLET PO SCH (08:00)
[2016-09-30] MEDS: ENOXAPARIN 30 MG/0.3 ML DISP.SYRIN. SQ SCH (08:00)
[2016-09-30] MEDS: ASCORBIC ACID 500 MG TABLET PO SCH (08:00)
[2016-09-30] MEDS: CHOLECALCIFEROL (VITAMIN D3) 1,000 UNIT TABLET PO SCH (08:00)
[2016-09-30] MEDS: BUDESONIDE 0.5 MG/2 ML NEBU NEB SCH (09:00)
[2016-09-30] MEDS: ALPRAZolam 0.25 MG TABLET PO PRN (10:52)
--- NOTE | 2016-09-30 18:10 | PDOC ---
Exam Fredy Demential Exam: Fredy Note: Please also refer to the separate dictated note~for this date of service dictated separately.~Patient seen individually. Discussed the patient with Nursing staff reviewed the chart.~Reviewed interim history and current functioning. Reviewed vital signs,~Labs/ Radiology~and current medications noted below. Continue current treatment with the changes noted in the dictated addendum note Assessment: Vital Signs: Vital Signs Date Time Temp Pulse Resp B/P (MAP) Pulse Ox O2 Delivery O2 Flow Rate FiO2 09/30/16 08:15 Room Air 09/30/16 07:58 68 134/66 09/30/16 05:34 98.7 18 93 I&O Intake and Output 09/30/16 07:00 Intake Total 1740 ml Balance 1740 ml Intake Oral 1740 ml # Voids 6 # Bowel Movements 2 Current Medications: Meds: Current Medications Acetaminophen (Tylenol) 325 mg PRN Q4HRS PRN PO PAIN Last administered on 17:34; Start 09/18/16 at 15:00 Ascorbic Acid (Vitamin C) 500 mg DAILY PO Last administered on 09/30/16 08:00 ; Start 09/19/16 at 09:00 Cetirizine HCl (ZyrTEC) 10 mg DAILY PO Last administered on 09/30/16 08:00; Start 09/19/16 at 09:00 Vitamin D (Vitamin D3) 2,000 unit DAILY PO Last administered on 09/30/16 08:00 ; Start 09/19/16 at 09:00 Diltiazem HCl (Cardizem 24hr Cd) 240 mg DAILY PO Last administered on 07:58; Start 09/19/16 at 09:00 Docusate Sodium (Colace) 100 mg BID PO Last administered on 09/30/16 07:58; Start 09/18/16 at 21:00 Enoxaparin Sodium (Lovenox) 40 mg DAILY SQ Last administered on 09/26/16 08:17 ; Start 09/19/16 at 09:00; Stop 09/27/16 at 07:53; Status DC Furosemide (Lasix) 20 mg DAILY PO Last administered on 09/25/16 09:09; Start 09/19/16 at 09:00; Stop 09/25/16 at 16:06; Status DC Levothyroxine Sodium (Synthroid) 75 mcg DAILY PO Last administered on 07:59; Start 09/19/16 at 09:00 Magnesium Hydroxide (Milk Of Magnesia) 2,400 mg PRN DAILY PRN PO CONSTIPATION; Start 09/18/16 at 15:00 Meclizine HCl (Antivert) 12.5 mg TID PRN PRN PO DIZZINESS; Start 09/18/16 at 15 :00 Montelukast Sodium (Singulair) 10 mg DAILY PO Last administered on 09/30/16 07 :59; Start 09/19/16 at 09:00 Oxycodone/ Acetaminophen (Percocet 5/325) 1 tab PRN Q4HRS PRN PO PAIN Last administered on 09/28/16 19:02; Start 09/18/16 at 15:00; Stop 09/29/16 at 16:51 ; Status DC Oxycodone/ Acetaminophen (Percocet 5/325) 2 tab PRN Q4HRS PRN PO PAIN Last administered on 09/29/16 06:45; Start 09/18/16 at 15:00; Stop 09/29/16 at 16:51 ; Status DC Pantoprazole Sodium (Protonix) 40 mg BID PO Last administered on 09/30/16 07: 58; Start 09/18/16 at 21:00 Polyethylene Glycol (miraLAX) 17 gm PRN DAILY PRN PO CONSTIPATION; Start at 09:00 Potassium Chloride (Klor-Con) 10 meq BIDWMEALS PO Last administered on 16:29; Start 09/18/16 at 17:00 Prednisone (Prednisone) 10 mg Taper DAILY PO Last administered on 09/24/16 08: 44; Start 09/19/16 at 09:00; Stop 09/25/16 at 08:59; Status DC Senna/Docusate Sodium (Senna Plus) 1 tab BID PO Last administered on 09/20/16 08:41; Start 09/18/16 at 21:00 Non-Formulary Medication 1 puff PRN Q4HRS PRN IH WHEEZING; Start 09/18/16 at 15 :00; Stop 09/18/16 at 15:01; Status DC Guaifenesin/ Codeine Phosphate (Robitussin Ac) 5 ml PRN Q6HRS PRN PO COUGH; Start 09/18/16 at 15:15 Ondansetron HCl (Zofran Odt) 4 mg PRN Q12HR PRN PO NAUSEA/VOMITING; Start 09/18 at 15:15 Albuterol/ Ipratropium (Duoneb) 3 ml PRN QID PRN NEB WHEEZING Last administered on 09/19/16 11:33; Start 09/18/16 at 15:00 Alprazolam (Xanax) 0.25 mg TID PRN PRN PO ANXIETY Last administered on 10:52; Start 09/18/16 at 16:15 Psyllium Hydrophilic Mucilloid (Metamucil) 1 pkt PRN DAILY PRN PO CONSTIPATION ; Start 09/18/16 at 16:15 Budesonide (Pulmicort) 0.5 mg DAILY NEB Last administered on 09/22/16 11:57; Start 09/19/16 at 09:00 Iron Sucrose 200 mg/Sodium Chloride 110 ml @ 110 mls/hr 1X ONCE IV Last administered on 09/25/16 18:06; Start 09/25/16 at 16:30; Stop 09/25/16 at 17:29 ; Status DC Escitalopram Oxalate (Lexapro) 20 mg DAILY PO Last administered on 09/30/16 07 :58; Start 09/26/16 at 11:30 Enoxaparin Sodium (Lovenox) 30 mg DAILY SQ Last administered on 09/30/16 08:00 ; Start 09/27/16 at 09:00; Stop 10/01/16 at 09:01 Al Hydroxide/Mg Hydroxide (Mylanta Plus Xs) 30 ml 1X ONCE PO Last administered on 09/27/16 09:41; Start 09/27/16 at 09:45; Stop 09/27/16 at 09:46 ; Status DC Lidocaine (Lidoderm) 1 patch PRN Q12HR PRN TD PAIN Last administered on 08:30; Start 09/27/16 at 14:45 Ascorbic Acid (Vitamin C) 500 mg DAILY PO ; Start 09/29/16 at 09:00; Stop at 16:51; Status DC Furosemide (Lasix) 20 mg 1X ONCE PO Last administered on 09/29/16t 17:26; Start 09/29/16 at 17:00; Stop 09/29/16 at 17:01; Status DC Acetaminophen/ Hydrocodone Bitart (Lortab 10/325) 1 tab PRN Q6HRS PRN PO PAIN; Start 09/29/16 at 17:00 Active Scripts Active Reported Metamucil Packet (Psyllium Husk (with Sugar)) 3.4 Gm Powd.pack 1 Packet PO PRN DAILY PRN LAST DOSE GIVEN: DATE: TIME: NEXT DOSE DUE: DATE: TIME: Prednisone 10 Mg Tablet 30 Mg PO DAILY 3 Days LAST DOSE GIVEN: DATE: TIME: NEXT DOSE DUE: DATE: TIME: Polyethylene Glycol 3350 255 Gm Powder 17 Gm PO DAILY PRN LAST DOSE GIVEN: DATE: TIME: NEXT DOSE DUE: DATE: TIME: Pantoprazole Sodium 40 Mg Tablet.dr 1 Tab PO BID LAST DOSE GIVEN: DATE: TIME: NEXT DOSE DUE: DATE: TIME: Milk Of Magnesia (Magnesium Hydroxide) 400 Mg/5 Ml Oral.susp 30 Ml PO PRN DAILY PRN LAST DOSE GIVEN: DATE: TIME: NEXT DOSE DUE: DATE: TIME: Lovenox (Enoxaparin Sodium) 40 Mg/0.4 Ml Disp.syrin 0.4 Ml SQ DAILY 14 Days LAST DOSE GIVEN: DATE: TIME: NEXT DOSE DUE: DATE: TIME: Senokot-S Tablet (Sennosides/Docusate Sodium) 1 Each Tablet 1 Tab PO BID LAST DOSE GIVEN: DATE: TIME: NEXT DOSE DUE: DATE: TIME: Docusate Sodium 100 Mg Capsule 1 Cap PO BID LAST DOSE GIVEN: DATE: TIME: NEXT DOSE DUE: DATE: TIME: Potassium Chloride 10 Meq Capsule.er 1 Cap PO BID LAST DOSE GIVEN: DATE: TIME: NEXT DOSE DUE: DATE: TIME: Meclizine Hcl 12.5 Mg Tablet 1 Tab PO TID PRN PRN LAST DOSE GIVEN: DATE: TIME: NEXT DOSE DUE: DATE: TIME: Cardizem Cd (Diltiazem Hcl) 240 Mg Cap.er.24h 1 Cap PO DAILY LAST DOSE GIVEN: DATE: TIME: NEXT DOSE DUE: DATE: TIME: Codeine-Guaifen 10-100 mg/5 ml (Guaifenesin/Codeine Phosphate) 120 Ml Liquid 5 Ml PO PRN Q6HRS PRN Alprazolam 0.25 Mg Tablet 1 Tab PO TID PRN PRN LAST DOSE GIVEN: DATE: TIME: NEXT DOSE DUE: DATE: TIME: Percocet 5-325 Mg Tablet (Oxycodone Hcl/Acetaminophen) 1 Each Tablet 2 Tab PO PRN Q4HRS PRN LAST DOSE GIVEN: DATE: TIME: NEXT DOSE DUE: DATE: TIME: Percocet 5-325 Mg Tablet (Oxycodone Hcl/Acetaminophen) 1 Each Tablet 1 Tab PO PRN Q4HRS PRN LAST DOSE GIVEN: DATE: TIME: NEXT DOSE DUE: DATE: TIME: Duoneb 0.5-3(2.5) Mg/3 Ml (Albuterol/Ipratropium) 3 Ml Ampul.neb 3 Ml NEB QID PRN LAST DOSE GIVEN: DATE: TIME: NEXT DOSE DUE: DATE: TIME: Proair Respiclick (Albuterol Sulfate) 90 Mcg Aer.pow.ba 1 Puff IH PRN Q4HRS PRN LAST DOSE GIVEN: DATE: TIME: NEXT DOSE DUE: DATE: TIME: Acetaminophen 325 Mg Tablet 325 Mg PO PRN Q4HRS PRN LAST DOSE GIVEN: DATE: TIME: NEXT DOSE DUE: DATE: TIME: Lasix (Furosemide) 20 Mg Tablet 20 Mg PO DAILY LAST DOSE GIVEN: DATE: TIME: NEXT DOSE DUE: DATE: TIME: Ondansetron Hcl 4 Mg Tablet 1 Tab PO PRN Q12HR PRN LAST DOSE GIVEN: DATE: TIME: NEXT DOSE DUE: DATE: TODAY TIME: IF AND WHEN NEEDED Zyrtec (Cetirizine Hcl) 10 Mg Tablet 1 Tab PO DAILY LAST DOSE GIVEN: DATE: TODAY TIME: AM NEXT DOSE DUE: DATE: TOMORROW TIME: AM Montelukast Sodium Tablet (Montelukast Sodium) 10 Mg Tablet 1 Tab PO DAILY LAST DOSE GIVEN: DATE: TODAY TIME: AM NEXT DOSE DUE: DATE: TOMORR TIME: AM Vitamin C (Ascorbic Acid) 500 Mg Tablet 500 Mg PO DAILY LAST DOSE GIVEN: DATE: TODAY TIME: AM NEXT DOSE DUE: DATE: TOMORR TIME: AM Vitamin D3 (Cholecalciferol (Vitamin D3)) 1,000 Unit Tablet 2,000 Unit PO DAILY LAST DOSE GIVEN: DATE: TODAY TIME: AM NEXT DOSE DUE: DATE: TOMORR TIME: AM Advair 500-50 Diskus (Fluticasone/Salmeterol) 1 Each Disk.w.dev 1 Puff IH BID LAST DOSE GIVEN: DATE: TODAY TIME: AM NEXT DOSE DUE: DATE: TODAY TIME: PM Levothyroxine Sodium 75 Mcg Tablet 1 Tab PO DAILY LAST DOSE GIVEN: DATE: TODAY TIME: BEFORE BREAKFAST NEXT DOSE DUE: DATE: TOMORROW TIME: BEFORE BREAKFAST Diagnosis: Problems: (1) [id number] kidney injury (2) Acute congestive heart failure EMELY DANG MD Sep 30, 2016 18:10
[2016-09-30 19:05] VITALS: BP 127/45
[2016-10-01 05:31] VITALS: BP 151/72
--- NOTE | 2016-10-01 06:44 | CONS ---
DATE OF CONSULTATION: 09/30/2016 PSYCHIATRIC CONSULTATION IDENTIFYING DATA: The patient is a 76-year-old female seen in room 133 on the shelter unit at [facility] for a psychiatric consult due to worsening symptoms of depression, amotivation, apathy, poor energy, excessive sleepiness, tiredness worsening symptoms of depression, despite her current Lexapro 20 mg a day. I have been requested for this consultation by Dr. Beckman. The patient was seen individually, discussed with nursing staff, reviewed the chart. CHIEF COMPLAINT: "I have no energy, I have been depressed. I feel hopeless. I do not know if I can go on." I have reviewed current past records at length including my visit with the patient about a year back. HISTORY OF PRESENT ILLNESS: The patient has a long history of depression. In the past, she was treated on Celexa up to 80 mg a day and later Reglan was added per Dr. Thorpe. During the visit in 2015, there was some prolongation of the QT interval on the EKG and the Celexa was changed by me to Lexapro 20 mg a day. The patient has done better on this still she fell at home, fractured her right distal femur, which was a comminuted fracture. She was initially treated at [facility] then at [facility]. She underwent a revision of right total knee arthroplasty with distal femoral implant and a tibial implant. She is now at [facility] for shelter care, getting increasingly depressed, hopeless, helpless, worthless, extremely tired, sleeping much of the day and excessively at night. No psychotic symptoms, suicidal or homicidal ideation. No clear history of bipolar disorder. PAST PSYCHIATRIC HISTORY: As above. MEDICAL HISTORY: Status post right femur fracture as noted above, COPD, chronic bronchitis, hypothyroidism, allergic rhinitis, hypertension, esophageal stenosis, history of sleep apnea, respiratory failure, recurrent bronchitis. PAST SURGICAL HISTORY: As noted above, history of appendectomy, for the exploratory lap with a cyst removal, sinus surgery, breast reduction surgery, cholecystectomy, hysterectomy, surgery for acid reflux. ALLERGIES: TETRACYCLINE, ADHESIVE, AMOXICILLIN, CEFOTAXIME, CLAVULANIC ACID, CLINDAMYCIN, VANCOMYCIN. CURRENT PSYCHOTROPICS: Xanax 0.25 mg t.i.d. p.r.n., Lexapro 20 mg a day. FAMILY HISTORY: Noncontributory. SOCIAL HISTORY: The patient is , lives at home, alone. Her adult children check in with her, but when she fell at home prior to this injury there was no one at home with her and she pressed the alarm around her neck to call for an ambulance. No alcohol or drug abuse history. MENTAL STATUS EXAMINATION: The patient is well oriented, seen individually in her room. She recognized me from a year ago. Speech is coherent, abstraction fair, computation impaired, language function intact. Mood and affect depressed, anxious. No active psychotic symptoms, suicidal or homicidal ideation. Attention span fair. LABORATORY DATA: Reviewed. IMPRESSION: Major depressive disorder, recurrent; anxiety disorder, unspecified. Rest diagnoses as above. PLAN: Given the significant symptoms of depression versus adjustment disorder with depressed mood, we will go ahead and reduce the Lexapro from 20 mg a day to 10 mg a day and augment with Wellbutrin-XL 150 mg a day in the morning. The Wellbutrin should be more activating, energizing as an augmentation strategy with the Lexapro and we may have to adjust these dosages. The other option would have been to augment with Abilify, but given her general medical condition, I feel Wellbutrin is preferred at this time especially given her apathy, amotivation, and poor energy. Dr. Beckman, thank you for the opportunity to participate in your patient's care. We will follow with you. Please refer to my additional progress note dictated on 09/30/2016 for further information. EMELY DANG MD DR: KAREN/dilip JOB#: [id number] / [id number]
[2016-10-01] MEDS: ENOXAPARIN 30 MG/0.3 ML DISP.SYRIN. SQ SCH (08:39)
[2016-10-01] MEDS: CHOLECALCIFEROL (VITAMIN D3) 1,000 UNIT TABLET PO SCH (08:39)
[2016-10-01] MEDS: LEVOTHYROXINE 75 MCG TABLET PO SCH (08:40)
[2016-10-01] MEDS: ASCORBIC ACID 500 MG TABLET PO SCH (08:40)
[2016-10-01] MEDS: CETIRIZINE HCL 10 MG TABLET PO SCH (08:41)
[2016-10-01] MEDS: PANTOPRAZOLE 40 MG TABLET. PO SCH ×2 (08:41→20:21)
[2016-10-01] MEDS: POTASSIUM CHLORIDE 10 MEQ TABLET.ER. PO SCH ×2 (08:41→16:59)
[2016-10-01] MEDS: DOCUSATE SODIUM 100 MG CAPSULE PO SCH ×3 (08:41→20:30)
[2016-10-01] MEDS: MONTELUKAST 10 MG TABLET. PO SCH (08:41)
[2016-10-01] MEDS: buPROPion XL 150 MG TAB.ER.24H PO SCH (08:53)
[2016-10-01] MEDS: ESCITALOPRAM 10 MG TABLET. PO SCH (08:53)
[2016-10-01] MEDS: BUDESONIDE 0.5 MG/2 ML NEBU NEB SCH (09:00)
[2016-10-01] MEDS: SENNOSIDES/DOCUSATE 8.6/50MG TABLET. PO SCH ×3 (09:00→20:30)
[2016-10-01 20:00] VITALS: BP 147/67
--- NOTE | 2016-10-01 20:45 | PDOC ---
Exam Fredy Demential Exam: Fredy Note: Please also refer to the separate dictated note~for this date of service dictated separately.~Patient seen individually. Discussed the patient with Nursing staff reviewed the chart.~Reviewed interim history and current functioning. Reviewed vital signs,~Labs/ Radiology~and current medications noted below. Continue current treatment with the changes noted in the dictated addendum note Assessment: Vital Signs: Vital Signs Date Time Temp Pulse Resp B/P (MAP) Pulse Ox O2 Delivery O2 Flow Rate FiO2 10/01/16 08:41 71 151/72 10/01/16 08:00 Room Air 10/01/16 05:31 98.0 16 95 I&O Intake and Output 10/01/16 07:00 Intake Total 1200 ml Balance 1200 ml Intake Oral 1200 ml # Voids 4 # Bowel Movements 1 Current Medications: Meds: Current Medications Acetaminophen (Tylenol) 325 mg PRN Q4HRS PRN PO PAIN Last administered on 17:34; Start 09/18/16 at 15:00 Ascorbic Acid (Vitamin C) 500 mg DAILY PO Last administered on 10/01/16 08:40 ; Start 09/19/16 at 09:00 Cetirizine HCl (ZyrTEC) 10 mg DAILY PO Last administered on 10/01/16 08:41; Start 09/19/16 at 09:00 Vitamin D (Vitamin D3) 2,000 unit DAILY PO Last administered on 10/01/16 08:39 ; Start 09/19/16 at 09:00 Diltiazem HCl (Cardizem 24hr Cd) 240 mg DAILY PO Last administered on 08:41; Start 09/19/16 at 09:00 Docusate Sodium (Colace) 100 mg BID PO Last administered on 10/01/16 20:21; Start 09/18/16 at 21:00 Enoxaparin Sodium (Lovenox) 40 mg DAILY SQ Last administered on 09/26/16 08:17 ; Start 09/19/16 at 09:00; Stop 09/27/16 at 07:53; Status DC Furosemide (Lasix) 20 mg DAILY PO Last administered on 09/25/16 09:09; Start 09/19/16 at 09:00; Stop 09/25/16 at 16:06; Status DC Levothyroxine Sodium (Synthroid) 75 mcg DAILY PO Last administered on 08:40; Start 09/19/16 at 09:00 Magnesium Hydroxide (Milk Of Magnesia) 2,400 mg PRN DAILY PRN PO CONSTIPATION; Start 09/18/16 at 15:00 Meclizine HCl (Antivert) 12.5 mg TID PRN PRN PO DIZZINESS; Start 09/18/16 at 15 :00 Montelukast Sodium (Singulair) 10 mg DAILY PO Last administered on 10/01/16 08 :41; Start 09/19/16 at 09:00 Oxycodone/ Acetaminophen (Percocet 5/325) 1 tab PRN Q4HRS PRN PO PAIN Last administered on 09/28/16 19:02; Start 09/18/16 at 15:00; Stop 09/29/16 at 16:51 ; Status DC Oxycodone/ Acetaminophen (Percocet 5/325) 2 tab PRN Q4HRS PRN PO PAIN Last administered on 09/29/16 06:45; Start 09/18/16 at 15:00; Stop 09/29/16 at 16:51 ; Status DC Pantoprazole Sodium (Protonix) 40 mg BID PO Last administered on 10/01/16 20: 21; Start 09/18/16 at 21:00 Polyethylene Glycol (miraLAX) 17 gm PRN DAILY PRN PO CONSTIPATION; Start at 09:00 Potassium Chloride (Klor-Con) 10 meq BIDWMEALS PO Last administered on 16:59; Start 09/18/16 at 17:00 Prednisone (Prednisone) 10 mg Taper DAILY PO Last administered on 09/24/16 08: 44; Start 09/19/16 at 09:00; Stop 09/25/16 at 08:59; Status DC Senna/Docusate Sodium (Senna Plus) 1 tab BID PO Last administered on 10/01/16 20:21; Start 09/18/16 at 21:00 Non-Formulary Medication 1 puff PRN Q4HRS PRN IH WHEEZING; Start 09/18/16 at 15 :00; Stop 09/18/16 at 15:01; Status DC Guaifenesin/ Codeine Phosphate (Robitussin Ac) 5 ml PRN Q6HRS PRN PO COUGH; Start 09/18/16 at 15:15 Ondansetron HCl (Zofran Odt) 4 mg PRN Q12HR PRN PO NAUSEA/VOMITING; Start 09/18 at 15:15 Albuterol/ Ipratropium (Duoneb) 3 ml PRN QID PRN NEB WHEEZING Last administered on 09/19/16 11:33; Start 09/18/16 at 15:00 Alprazolam (Xanax) 0.25 mg TID PRN PRN PO ANXIETY Last administered on 10:52; Start 09/18/16 at 16:15 Psyllium Hydrophilic Mucilloid (Metamucil) 1 pkt PRN DAILY PRN PO CONSTIPATION ; Start 09/18/16 at 16:15 Budesonide (Pulmicort) 0.5 mg DAILY NEB Last administered on 09/22/16 11:57; Start 09/19/16 at 09:00 Iron Sucrose 200 mg/Sodium Chloride 110 ml @ 110 mls/hr 1X ONCE IV Last administered on 09/25/16 18:06; Start 09/25/16 at 16:30; Stop 09/25/16 at 17:29 ; Status DC Escitalopram Oxalate (Lexapro) 20 mg DAILY PO Last administered on 09/30/16 07 :58; Start 09/26/16 at 11:30; Stop 09/30/16 at 21:51; Status DC Enoxaparin Sodium (Lovenox) 30 mg DAILY SQ Last administered on 10/01/16 08:39 ; Start 09/27/16 at 09:00; Stop 10/01/16 at 09:01; Status DC Al Hydroxide/Mg Hydroxide (Mylanta Plus Xs) 30 ml 1X ONCE PO Last administered on 09/27/16 09:41; Start 09/27/16 at 09:45; Stop 09/27/16 at 09:46 ; Status DC Lidocaine (Lidoderm) 1 patch PRN Q12HR PRN TD PAIN Last administered on 08:30; Start 09/27/16 at 14:45 Ascorbic Acid (Vitamin C) 500 mg DAILY PO ; Start 09/29/16 at 09:00; Stop at 16:51; Status DC Furosemide (Lasix) 20 mg 1X ONCE PO Last administered on 09/29/16 17:26; Start 09/29/16 at 17:00; Stop 09/29/16 at 17:01; Status DC Acetaminophen/ Hydrocodone Bitart (Lortab 10/325) 1 tab PRN Q6HRS PRN PO PAIN; Start 09/29/16 at 17:00 Escitalopram Oxalate (Lexapro) 10 mg DAILY PO Last administered on 10/01/16 08 :53; Start 10/01/16 at 09:00 Bupropion HCl (Wellbutrin Xl) 150 mg DAILY PO Last administered on 10/01/16 08 :53; Start 10/01/16 at 09:00 Active Scripts Active Reported Metamucil Packet (Psyllium Husk (with Sugar)) 3.4 Gm Powd.pack 1 Packet PO PRN DAILY PRN LAST DOSE GIVEN: DATE: TIME: NEXT DOSE DUE: DATE: TIME: Prednisone 10 Mg Tablet 30 Mg PO DAILY 3 Days LAST DOSE GIVEN: DATE: TIME: NEXT DOSE DUE: DATE: TIME: Polyethylene Glycol 3350 255 Gm Powder 17 Gm PO DAILY PRN LAST DOSE GIVEN: DATE: TIME: NEXT DOSE DUE: DATE: TIME: Pantoprazole Sodium 40 Mg Tablet.dr 1 Tab PO BID LAST DOSE GIVEN: DATE: TIME: NEXT DOSE DUE: DATE: TIME: Milk Of Magnesia (Magnesium Hydroxide) 400 Mg/5 Ml Oral.susp 30 Ml PO PRN DAILY PRN LAST DOSE GIVEN: DATE: TIME: NEXT DOSE DUE: DATE: TIME: Lovenox (Enoxaparin Sodium) 40 Mg/0.4 Ml Disp.syrin 0.4 Ml SQ DAILY 14 Days LAST DOSE GIVEN: DATE: TIME: NEXT DOSE DUE: DATE: TIME: Senokot-S Tablet (Sennosides/Docusate Sodium) 1 Each Tablet 1 Tab PO BID LAST DOSE GIVEN: DATE: TIME: NEXT DOSE DUE: DATE: TIME: Docusate Sodium 100 Mg Capsule 1 Cap PO BID LAST DOSE GIVEN: DATE: TIME: NEXT DOSE DUE: DATE: TIME: Potassium Chloride 10 Meq Capsule.er 1 Cap PO BID LAST DOSE GIVEN: DATE: TIME: NEXT DOSE DUE: DATE: TIME: Meclizine Hcl 12.5 Mg Tablet 1 Tab PO TID PRN PRN LAST DOSE GIVEN: DATE: TIME: NEXT DOSE DUE: DATE: TIME: Cardizem Cd (Diltiazem Hcl) 240 Mg Cap.er.24h 1 Cap PO DAILY LAST DOSE GIVEN: DATE: TIME: NEXT DOSE DUE: DATE: TIME: Codeine-Guaifen 10-100 mg/5 ml (Guaifenesin/Codeine Phosphate) 120 Ml Liquid 5 Ml PO PRN Q6HRS PRN Alprazolam 0.25 Mg Tablet 1 Tab PO TID PRN PRN LAST DOSE GIVEN: DATE: TIME: NEXT DOSE DUE: DATE: TIME: Percocet 5-325 Mg Tablet (Oxycodone Hcl/Acetaminophen) 1 Each Tablet 2 Tab PO PRN Q4HRS PRN LAST DOSE GIVEN: DATE: TIME: NEXT DOSE DUE: DATE: TIME: Percocet 5-325 Mg Tablet (Oxycodone Hcl/Acetaminophen) 1 Each Tablet 1 Tab PO PRN Q4HRS PRN LAST DOSE GIVEN: DATE: TIME: NEXT DOSE DUE: DATE: TIME: Duoneb 0.5-3(2.5) Mg/3 Ml (Albuterol/Ipratropium) 3 Ml Ampul.neb 3 Ml NEB QID PRN LAST DOSE GIVEN: DATE: TIME: NEXT DOSE DUE: DATE: TIME: Proair Respiclick (Albuterol Sulfate) 90 Mcg Aer.pow.ba 1 Puff IH PRN Q4HRS PRN LAST DOSE GIVEN: DATE: TIME: NEXT DOSE DUE: DATE: TIME: Acetaminophen 325 Mg Tablet 325 Mg PO PRN Q4HRS PRN LAST DOSE GIVEN: DATE: TIME: NEXT DOSE DUE: DATE: TIME: Lasix (Furosemide) 20 Mg Tablet 20 Mg PO DAILY LAST DOSE GIVEN: DATE: TIME: NEXT DOSE DUE: DATE: TIME: Ondansetron Hcl 4 Mg Tablet 1 Tab PO PRN Q12HR PRN LAST DOSE GIVEN: DATE: TIME: NEXT DOSE DUE: DATE: TODAY TIME: IF AND WHEN NEEDED Zyrtec (Cetirizine Hcl) 10 Mg Tablet 1 Tab PO DAILY LAST DOSE GIVEN: DATE: TODAY TIME: AM NEXT DOSE DUE: DATE: TOMORR TIME: AM Montelukast Sodium Tablet (Montelukast Sodium) 10 Mg Tablet 1 Tab PO DAILY LAST DOSE GIVEN: DATE: TODAY TIME: AM NEXT DOSE DUE: DATE: TOMORR TIME: AM Vitamin C (Ascorbic Acid) 500 Mg Tablet 500 Mg PO DAILY LAST DOSE GIVEN: DATE: TODAY TIME: AM NEXT DOSE DUE: DATE: TOMORROW TIME: AM Vitamin D3 (Cholecalciferol (Vitamin D3)) 1,000 Unit Tablet 2,000 Unit PO DAILY LAST DOSE GIVEN: DATE: TIME: AM NEXT DOSE DUE: DATE: TOMORR TIME: AM Advair 500-50 Diskus (Fluticasone/Salmeterol) 1 Each Disk.w.dev 1 Puff IH BID LAST DOSE GIVEN: DATE: TODAY TIME: AM NEXT DOSE DUE: DATE: TODAY TIME: PM Levothyroxine Sodium 75 Mcg Tablet 1 Tab PO DAILY LAST DOSE GIVEN: DATE: TIME: BEFORE BREAKFAST NEXT DOSE DUE: DATE: TOMORROW TIME: BEFORE BREAKFAST Diagnosis: Problems: (1) Major depressive disorder, recurrent episode EMELY DANG MD Oct 01, 2016 20:45
--- NOTE | 2016-10-01 22:32 | PN ---
DATE: 10/01/2016 PSYCHIATRIC PROGRESS NOTE This note covers elements not covered in my initial note of 10/01/2016. SUBJECTIVE: The patient seen individually evening of 10/01/2016. Discussed with nursing staff, reviewed the chart, met with the patient individually in her room and also with the patient's sister and [id number] who were visiting from [place]. Overall, the patient states this morning she felt more active, energetic. She said she was not aware that I had made changes in her psychotropics and now that I told her about the Wellbutrin, she was quite positive about this. However, after physical therapy according to nursing staff, she was tired again. REVIEW OF SYSTEMS: Positive for tiredness. No CV, , pulmonary, eye system symptoms on review. MENTAL STATUS EXAM: Oriented reasonably. Speech is coherent, abstraction fair, computation reasonable. Mood is still dysphoric, anxious, but better than before. Affect is mood congruent. No psychotic symptoms, suicidal or homicidal ideation. LABORATORY DATA: Reviewed. IMPRESSION: Major depressive disorder, recurrent, in partial remission; rest diagnoses unchanged. PLAN: Continue Lexapro 10 mg a day, Wellbutrin-XL 150 mg a day. No further change at this time, but depending on her progress over the next day or two, we may need to increase the Wellbutrin further. MAN Evie DANG MD DR: KAREN/dilip JOB#: [id number] / [id number]
[2016-10-02 06:24] VITALS: BP 150/73
[2016-10-02] MEDS: POTASSIUM CHLORIDE 10 MEQ TABLET.ER. PO SCH ×2 (07:59→17:02)
[2016-10-02] MEDS: LIDOCAINE (700MG/PATCH) PATCH. TD PRN (07:59)
[2016-10-02] MEDS: MONTELUKAST 10 MG TABLET. PO SCH (07:59)
[2016-10-02] MEDS: ESCITALOPRAM 10 MG TABLET. PO SCH (07:59)
[2016-10-02] MEDS: HYDROcodone/APAP 10/325 1 TAB TABLET PO PRN ×2 (08:00→17:02)
[2016-10-02] MEDS: CHOLECALCIFEROL (VITAMIN D3) 1,000 UNIT TABLET PO SCH (08:00)
[2016-10-02] MEDS: PANTOPRAZOLE 40 MG TABLET. PO SCH ×2 (08:01→20:55)
[2016-10-02] MEDS: ASCORBIC ACID 500 MG TABLET PO SCH (08:01)
[2016-10-02] MEDS: DOCUSATE SODIUM 100 MG CAPSULE PO SCH ×2 (08:07→20:53)
[2016-10-02] MEDS: SENNOSIDES/DOCUSATE 8.6/50MG TABLET. PO SCH ×2 (08:08→20:53)
[2016-10-02] MEDS: CETIRIZINE HCL 10 MG TABLET PO SCH (08:10)
[2016-10-02] MEDS: LEVOTHYROXINE 75 MCG TABLET PO SCH (08:11)
[2016-10-02] MEDS: buPROPion XL 150 MG TAB.ER.24H PO SCH (08:11)
[2016-10-02] MEDS: BUDESONIDE 0.5 MG/2 ML NEBU NEB SCH (09:00)
[2016-10-02] MEDS ORDERED: CALCIUM CARBONATE 500 MG TAB.CHEW PO PRN (09:30)
[2016-10-02 10:02] VITALS: BP 121/81
[2016-10-02 20:12] VITALS: BP_SYST 117; BP_SYST 150; BP_DIAS 41; BP_DIAS 73
[2016-10-03] MEDS: MONTELUKAST 10 MG TABLET. PO SCH (08:37)
[2016-10-03] MEDS: buPROPion XL 150 MG TAB.ER.24H PO SCH (08:37)
[2016-10-03] MEDS: ESCITALOPRAM 10 MG TABLET. PO SCH (08:37)
[2016-10-03] MEDS: LIDOCAINE (700MG/PATCH) PATCH. TD PRN (08:37)
[2016-10-03 08:38] VITALS: BP 117/41
[2016-10-03] MEDS: POTASSIUM CHLORIDE 10 MEQ TABLET.ER. PO SCH (08:38)
[2016-10-03] MEDS: PANTOPRAZOLE 40 MG TABLET. PO SCH (08:38)
[2016-10-03] MEDS: LEVOTHYROXINE 75 MCG TABLET PO SCH (08:38)
[2016-10-03] MEDS: CHOLECALCIFEROL (VITAMIN D3) 1,000 UNIT TABLET PO SCH (08:38)
[2016-10-03] MEDS: CETIRIZINE HCL 10 MG TABLET PO SCH (08:38)
[2016-10-03] MEDS: DOCUSATE SODIUM 100 MG CAPSULE PO SCH (08:39)
[2016-10-03] MEDS: ASCORBIC ACID 500 MG TABLET PO SCH (08:39)
[2016-10-03] MEDS: SENNOSIDES/DOCUSATE 8.6/50MG TABLET. PO SCH (08:39)
[2016-10-03] MEDS: HYDROcodone/APAP 10/325 1 TAB TABLET PO PRN (08:52)
[2016-10-03] MEDS: BUDESONIDE 0.5 MG/2 ML NEBU NEB SCH (09:00)
--- NOTE | 2016-10-03 09:46 | PDOC3 ---
Discharge Summary Visit Information Date of Admission: Sep 18, 2016 Date of Discharge: Oct 03, 2016 Final Diagnosis Fall with right femur fracture status post repair of distal femoral Bony's prosthetic fracture of the right femu COPD DVT prophylaxis chronic bronchitis # hypothyroidism # depression # allergic rhinitis hypertension # esophageal stenosis # history of sleep apnea #chronic hypoxic respiratory failure uses oxygen as needed # history of recurrent bronchitis alveolitis with mucous plugging Microcytic anemia with iron deficiency, had iron infusion Problems: Brief Hospital Course Allergies Allergies Coded Allergies Type Severity Reaction Last Updated Verified Tetracyclines Allergy Intermediate Unknown 03/04/15 Yes adhesive Allergy Intermediate 03/04/15 Yes amoxicillin Allergy Intermediate tingling sensation all over 10/26/15 Yes cefotaxime Allergy Intermediate 03/04/15 Yes clavulanic acid Allergy Intermediate tingling sensation all over 10/26/15 Yes clindamycin Allergy Intermediate 03/04/15 Yes vancomycin Allergy Intermediate 03/04/15 Yes Vital Signs Vital Signs Date Time Temp Pulse Resp B/P (MAP) Pulse Ox O2 Delivery O2 Flow Rate FiO2 10/03/16 08:58 Room Air 10/03/16 08:38 65 117/41 10/02/16 20:12 98.2 18 97 Brief Hospital Course Ms. Hanley is a 76 old female who presented with the need for physical therapy and further care after falling at home and sustaining a fracture of the right femur. She underwent surgery at [facility] and tolerated that well and after that was admitted to swing bed status at [facility] for further therapy. While at [facility] she did have an iron infusion for iron deficiency and anemia. She underwent physical therapy and occupational therapy daily. She was noted to be somewhat depressed and was seen by Dr. valadezand started on Lexapro and Wellbutrin. She seems to be tolerating that well. We cut down her pain medication from Percocet to hydrocodone because she was sleeping excessively and her pain was more controlled and then it was possible to decrease the strength of her pain medication. On the day of discharge she was anxious to go home and her sister will be staying with her for a while and she will be going home on home health. Discharge Information Condition at Discharge: Improved, Stable Disposition/Orders: D/C to Home w/ HH Dischare Medications Current Medications Acetaminophen (Tylenol) 325 mg PRN Q4HRS PRN PO PAIN Last administered on 17:34; Start 09/18/16 at 15:00 Ascorbic Acid (Vitamin C) 500 mg DAILY PO Last administered on 10/03/16 08:39 ; Start 09/19/16 at 09:00 Cetirizine HCl (ZyrTEC) 10 mg DAILY PO Last administered on 10/03/16 08:38; Start 09/19/16 at 09:00 Vitamin D (Vitamin D3) 2,000 unit DAILY PO Last administered on 10/03/16 08:38 ; Start 09/19/16 at 09:00 Diltiazem HCl (Cardizem 24hr Cd) 240 mg DAILY PO Last administered on 08:38; Start 09/19/16 at 09:00 Docusate Sodium (Colace) 100 mg BID PO Last administered on 10/01/16 08:41; Start 09/18/16 at 21:00 Enoxaparin Sodium (Lovenox) 40 mg DAILY SQ Last administered on 09/26/16 08:17 ; Start 09/19/16 at 09:00; Stop 09/27/16 at 07:53; Status DC Furosemide (Lasix) 20 mg DAILY PO Last administered on 09/25/16 09:09; Start 09/19/16 at 09:00; Stop 09/25/16 at 16:06; Status DC Levothyroxine Sodium (Synthroid) 75 mcg DAILY PO Last administered on 08:38; Start 09/19/16 at 09:00 Magnesium Hydroxide (Milk Of Magnesia) 2,400 mg PRN DAILY PRN PO CONSTIPATION; Start 09/18/16 at 15:00 Meclizine HCl (Antivert) 12.5 mg TID PRN PRN PO DIZZINESS; Start 09/18/16 at 15 :00 Montelukast Sodium (Singulair) 10 mg DAILY PO Last administered on 10/03/16 08 :37; Start 09/19/16 at 09:00 Oxycodone/ Acetaminophen (Percocet 5/325) 1 tab PRN Q4HRS PRN PO PAIN Last administered on 09/28/16 19:02; Start 09/18/16 at 15:00; Stop 09/29/16 at 16:51 ; Status DC Oxycodone/ Acetaminophen (Percocet 5/325) 2 tab PRN Q4HRS PRN PO PAIN Last administered on 09/29/16 06:45; Start 09/18/16 at 15:00; Stop 09/29/16 at 16:51 ; Status DC Pantoprazole Sodium (Protonix) 40 mg BID PO Last administered on 10/03/16 08: 38; Start 09/18/16 at 21:00 Polyethylene Glycol (miraLAX) 17 gm PRN DAILY PRN PO CONSTIPATION; Start at 09:00 Potassium Chloride (Klor-Con) 10 meq BIDWMEALS PO Last administered on 08:38; Start 09/18/16 at 17:00 Prednisone (Prednisone) 10 mg Taper DAILY PO Last administered on 09/24/16 08: 44; Start 09/19/16 at 09:00; Stop 09/25/16 at 08:59; Status DC Senna/Docusate Sodium (Senna Plus) 1 tab BID PO Last administered on 09/30/16 20:02; Start 09/18/16 at 21:00 Non-Formulary Medication 1 puff PRN Q4HRS PRN IH WHEEZING; Start 09/18/16 at 15 :00; Stop 09/18/16 at 15:01; Status DC Guaifenesin/ Codeine Phosphate (Robitussin Ac) 5 ml PRN Q6HRS PRN PO COUGH; Start 09/18/16 at 15:15 Ondansetron HCl (Zofran Odt) 4 mg PRN Q12HR PRN PO NAUSEA/VOMITING; Start 09/18 at 15:15 Albuterol/ Ipratropium (Duoneb) 3 ml PRN QID PRN NEB WHEEZING Last administered on 09/19/16 11:33; Start 09/18/16 at 15:00 Alprazolam (Xanax) 0.25 mg TID PRN PRN PO ANXIETY Last administered on 10:52; Start 09/18/16 at 16:15 Psyllium Hydrophilic Mucilloid (Metamucil) 1 pkt PRN DAILY PRN PO CONSTIPATION ; Start 09/18/16 at 16:15 Budesonide (Pulmicort) 0.5 mg DAILY NEB Last administered on 09/22/16 11:57; Start 09/19/16 at 09:00 Iron Sucrose 200 mg/Sodium Chloride 110 ml @ 110 mls/hr 1X ONCE IV Last administered on 09/25/16 18:06; Start 09/25/16 at 16:30; Stop 09/25/16 at 17:29 ; Status DC Escitalopram Oxalate (Lexapro) 20 mg DAILY PO Last administered on 09/30/16 07 :58; Start 09/26/16 at 11:30; Stop 09/30/16 at 21:51; Status DC Enoxaparin Sodium (Lovenox) 30 mg DAILY SQ Last administered on 10/01/16 08:39 ; Start 09/27/16 at 09:00; Stop 10/01/16 at 09:01; Status DC Al Hydroxide/Mg Hydroxide (Mylanta Plus Xs) 30 ml 1X ONCE PO Last administered on 09/27/16 09:41; Start 09/27/16 at 09:45; Stop 09/27/16 at 09:46 ; Status DC Lidocaine (Lidoderm) 1 patch PRN Q12HR PRN TD PAIN Last administered on 08:37; Start 09/27/16 at 14:45 Ascorbic Acid (Vitamin C) 500 mg DAILY PO ; Start 09/29/16 at 09:00; Stop at 16:51; Status DC Furosemide (Lasix) 20 mg 1X ONCE PO Last administered on 09/29/16 17:26; Start 09/29/16 at 17:00; Stop 09/29/16 at 17:01; Status DC Acetaminophen/ Hydrocodone Bitart (Lortab 10/325) 1 tab PRN Q6HRS PRN PO PAIN Last administered on 10/03/16 08:52; Start 09/29/16 at 17:00 Escitalopram Oxalate (Lexapro) 10 mg DAILY PO Last administered on 10/03/16 08 :37; Start 10/01/16 at 09:00 Bupropion HCl (Wellbutrin Xl) 150 mg DAILY PO Last administered on 10/03/16 08 :37; Start 10/01/16 at 09:00 Calcium Carbonate/ Glycine (Tums) 500 mg PRN AFTMEALHC PRN PO INDIGESTION; Start 7/27/17 at 09:30 Active Scripts Active Reported Metamucil Packet (Psyllium Husk (with Sugar)) 3.4 Gm Powd.pack 1 Packet PO PRN DAILY PRN LAST DOSE GIVEN: DATE: TIME: NEXT DOSE DUE: DATE: TIME: Prednisone 10 Mg Tablet 30 Mg PO DAILY 3 Days LAST DOSE GIVEN: DATE: TIME: NEXT DOSE DUE: DATE: TIME: Polyethylene Glycol 3350 255 Gm Powder 17 Gm PO DAILY PRN LAST DOSE GIVEN: DATE: TIME: NEXT DOSE DUE: DATE: TIME: Pantoprazole Sodium 40 Mg Tablet.dr 1 Tab PO BID LAST DOSE GIVEN: DATE: TIME: NEXT DOSE DUE: DATE: TIME: Milk Of Magnesia (Magnesium Hydroxide) 400 Mg/5 Ml Oral.susp 30 Ml PO PRN DAILY PRN LAST DOSE GIVEN: DATE: TIME: NEXT DOSE DUE: DATE: TIME: Lovenox (Enoxaparin Sodium) 40 Mg/0.4 Ml Disp.syrin 0.4 Ml SQ DAILY 14 Days LAST DOSE GIVEN: DATE: TIME: NEXT DOSE DUE: DATE: TIME: Senokot-S Tablet (Sennosides/Docusate Sodium) 1 Each Tablet 1 Tab PO BID LAST DOSE GIVEN: DATE: TIME: NEXT DOSE DUE: DATE: TIME: Docusate Sodium 100 Mg Capsule 1 Cap PO BID LAST DOSE GIVEN: DATE: TIME: NEXT DOSE DUE: DATE: TIME: Potassium Chloride 10 Meq Capsule.er 1 Cap PO BID LAST DOSE GIVEN: DATE: TIME: NEXT DOSE DUE: DATE: TIME: Meclizine Hcl 12.5 Mg Tablet 1 Tab PO TID PRN PRN LAST DOSE GIVEN: DATE: TIME: NEXT DOSE DUE: DATE: TIME: Cardizem Cd (Diltiazem Hcl) 240 Mg Cap.er.24h 1 Cap PO DAILY LAST DOSE GIVEN: DATE: TIME: NEXT DOSE DUE: DATE: TIME: Codeine-Guaifen 10-100 mg/5 ml (Guaifenesin/Codeine Phosphate) 120 Ml Liquid 5 Ml PO PRN Q6HRS PRN Alprazolam 0.25 Mg Tablet 1 Tab PO TID PRN PRN LAST DOSE GIVEN: DATE: TIME: NEXT DOSE DUE: DATE: TIME: Percocet 5-325 Mg Tablet (Oxycodone Hcl/Acetaminophen) 1 Each Tablet 2 Tab PO PRN Q4HRS PRN LAST DOSE GIVEN: DATE: TIME: NEXT DOSE DUE: DATE: TIME: Percocet 5-325 Mg Tablet (Oxycodone Hcl/Acetaminophen) 1 Each Tablet 1 Tab PO PRN Q4HRS PRN LAST DOSE GIVEN: DATE: TIME: NEXT DOSE DUE: DATE: TIME: Duoneb 0.5-3(2.5) Mg/3 Ml (Albuterol/Ipratropium) 3 Ml Ampul.neb 3 Ml NEB QID PRN LAST DOSE GIVEN: DATE: TIME: NEXT DOSE DUE: DATE: TIME: Proair Respiclick (Albuterol Sulfate) 90 Mcg Aer.pow.ba 1 Puff IH PRN Q4HRS PRN LAST DOSE GIVEN: DATE: TIME: NEXT DOSE DUE: DATE: TIME: Acetaminophen 325 Mg Tablet 325 Mg PO PRN Q4HRS PRN LAST DOSE GIVEN: DATE: TIME: NEXT DOSE DUE: DATE: TIME: Lasix (Furosemide) 20 Mg Tablet 20 Mg PO DAILY LAST DOSE GIVEN: DATE: TIME: NEXT DOSE DUE: DATE: TIME: Ondansetron Hcl 4 Mg Tablet 1 Tab PO PRN Q12HR PRN LAST DOSE GIVEN: DATE: TIME: NEXT DOSE DUE: DATE: TODAY TIME: IF AND WHEN NEEDED Zyrtec (Cetirizine Hcl) 10 Mg Tablet 1 Tab PO DAILY LAST DOSE GIVEN: DATE: TODAY TIME: AM NEXT DOSE DUE: DATE: TOMORR TIME: AM Montelukast Sodium Tablet (Montelukast Sodium) 10 Mg Tablet 1 Tab PO DAILY LAST DOSE GIVEN: DATE: TIME: AM NEXT DOSE DUE: DATE: ORR TIME: AM Vitamin C (Ascorbic Acid) 500 Mg Tablet 500 Mg PO DAILY LAST DOSE GIVEN: DATE: TODAY TIME: AM NEXT DOSE DUE: DATE: TOMORROW TIME: AM Vitamin D3 (Cholecalciferol (Vitamin D3)) 1,000 Unit Tablet 2,000 Unit PO DAILY LAST DOSE GIVEN: DATE: TODAY TIME: AM NEXT DOSE DUE: DATE: ORR TIME: AM Advair 500-50 Diskus (Fluticasone/Salmeterol) 1 Each Disk.w.dev 1 Puff IH BID LAST DOSE GIVEN: DATE: TIME: AM NEXT DOSE DUE: DATE: TODAY TIME: PM Levothyroxine Sodium 75 Mcg Tablet 1 Tab PO DAILY LAST DOSE GIVEN: DATE: TODAY TIME: BEFORE BREAKFAST NEXT DOSE DUE: DATE: TOMORROW TIME: BEFORE BREAKFAST Patient Instructions Patient Instuctions Not to take Hydrocodone with her xanax. See pcp in a week. Keep appointment with the orthopedist. JANE COSTELLO DO Oct 03, 2016 09:46
[2016-10-03] MEDS ORDERED: HYDR-2766 PO (10:00)
[2016-10-03] MEDS ORDERED: Escitalopram PO (10:00)
[2016-10-03] MEDS ORDERED: BUPR-192 PO (10:00)
== END 2016-10-03 12:30 | disposition home health service (06) | DRG 683 ==
LOC: LND 13:59
PROVIDERS: ADMIT Family Medicine; ATTEND Family Medicine
DX: N17.9 Acute kidney failure, unspecified (principal); E46 Unspecified protein-calorie malnutrition; J96.11 Chronic respiratory failure with hypoxia; I13.0 Hypertensive heart and chronic kidney disease with heart failure and stage 1 through stage 4 chronic kidney disease, or unspecified chronic kidney disease; F33.41 Major depressive disorder, recurrent, in partial remission; G47.30 Sleep apnea, unspecified; F41.9 Anxiety disorder, unspecified; E03.9 Hypothyroidism, unspecified; I50.9 Heart failure, unspecified; J44.9 Chronic obstructive pulmonary disease, unspecified; K59.00 Constipation, unspecified; K21.9 Gastro-esophageal reflux disease without esophagitis; N18.9 Chronic kidney disease, unspecified; K22.2 Esophageal obstruction; Z60.2 Problems related to living alone; D50.9 Iron deficiency anemia, unspecified; Z96.651 Presence of right artificial knee joint; Z82.3 Family history of stroke; Z79.899 Other long term (current) drug therapy; Z82.49 Family history of ischemic heart disease and other diseases of the circulatory system; Z83.3 Family history of diabetes mellitus; Z90.49 Acquired absence of other specified parts of digestive tract; Z91.81 History of falling; Z87.81 Personal history of (healed) traumatic fracture; Z88.1 Allergy status to other antibiotic agents; Z88.8 Allergy status to other drugs, medicaments and biological substances; Z79.1 Long term (current) use of non-steroidal anti-inflammatories (NSAID); Z79.82 Long term (current) use of aspirin; Z79.2 Long term (current) use of antibiotics; Z68.26 Body mass index [BMI] 26.0-26.9, adult
CPT/HCPCS: 36415; 80048; 80053; 82274; 82306; 82607; 82728; 83540; 83550; 83735; 85027; 94640; J1650; J1756; J7512; J7620; J7626; 97110; 97116; 97530; 97535

== ENCOUNTER 2016-11-29 08:47 | Inpatient (IN) | payer MEDICARE, BC ==
[~2016-11-29] VITALS: Ht 157.5 cm; Wt 61.0 kg
[~2016-11-29 08:47] MED LIST changes: +ACET325T21 PO; +ALBU90AE IH; +ALPR0.254 PO; +BUPR-192 PO; +DILT240C2 PO; +DOCU100C28 PO; +ENOX40DI SQ; +Escitalopram PO; -GUAI-107 PO; +GUAI-108 PO; +GUAI120L35 PO; +HYDR-2766 PO; +IPRA3AMP NEB; +MAGN400O7 PO; +MECL12.52 PO; +OXYC-323 PO; +POLY255P PO; +POTA10CA PO; +PSYL1PAC7 PO; +SENN-37 PO
--- NOTE | 2016-11-29 09:20 | RAD ---
AP portable chest radiograph 11/29/2016 Clinical History: Shortness of breath. An AP portable erect digital radiograph of the chest was obtained. Comparison study is dated 10/29/2015. A right subclavian [id number]-n-Pikf type catheter is unchanged in position. The cardiac silhouette is normal in size. The thoracic aorta is tortuous. Atherosclerotic calcification of the thoracic aorta is seen. Patchy left lower lobe atelectasis and/or infiltrate is noted. There is a small left pleural effusion. No pneumothorax is seen. Moderate S shaped curvature of the thoracolumbar spine is seen. There are associated degenerative changes. Impression: Patchy left lower lobe atelectasis and/or infiltrate with small left pleural effusion.
--- NOTE | 2016-11-29 09:24 | PHYS DOC ---
Past History Past Medical History: COPD, High Cholesterol, Hypertension, Hypothyroid, Renal Disease, UTI Past Surgical History: Cholecystectomy, , Hysterectomy, Knee Replacement Smoking: Non-smoker Alcohol Use: None Drug Use: None Adult General Chief Complaint Chief Complaint: SHORTNESS OF BREATH HPI HPI Patient is a 76-year-old female with a history of COPD sent to the ED by Dr. Bazan from urgent care with hypoxia. Patient states she has not been doing well for about a month. On November 18, she was prescribed Cipro and took 10 days, "it did nothing". It did make her itch from head to toe every time she took it but she did not have a rash or any skin redness or other symptoms besides itching. The patient has home oxygen for when necessary use. She has a nebulizer at home and she took 4 treatments yesterday. Today when she arrived at urgent care or her room air O2 sat was 81%. Patient has had a cough which has been severe at times. She has been chilled and cold but no measured fever. She's been more short of air than usual and more dyspneic on exertion. She has had to use her oxygen more than usual. PCP Sales Marketing Director Dr. Sherman Review of Systems Review of Systems Constitutional: Denies fever or chills but she has been cold Eyes: Denies change in visual acuity, redness, or eye pain [] HENT: Positive nasal congestion, she can't breathe out of her nose Respiratory: As in history of present illness Cardiovascular: Denies cardiac sounding chest pain GI: She has had dry heaves and nausea. : Denies dysuria or hematuria [] Musculoskeletal: Denies back pain or joint pain [] Integument: Denies rash or skin lesions [] Neurologic: Denies headache, focal weakness or sensory changes [] Current Medications Current Medications Current Medications Medications (Trade) Dose Ordered Sig/Delmi Start Time Stop Time Status Last Admin Dose Admin Albuterol/ Ipratropium (Duoneb) 3 ml 1X ONCE 11/29/16 09:30 11/29/16 09:31 Methylprednisolone Sodium Succinate (SOLU-Medrol 125MG VIAL) 60 mg 1X ONCE 11/29/16 09:30 11/29/16 09:31 Allergies Allergies Allergies Coded Allergies Type Severity Reaction Last Updated Verified Tetracyclines Allergy Intermediate Unknown 03/04/15 Yes adhesive Allergy Intermediate 03/04/15 Yes amoxicillin Allergy Intermediate tingling sensation all over 10/26/15 Yes cefotaxime Allergy Intermediate 03/04/15 Yes clavulanic acid Allergy Intermediate tingling sensation all over 10/26/15 Yes clindamycin Allergy Intermediate 03/04/15 Yes vancomycin Allergy Intermediate 03/04/15 Yes Physical Exam Physical Exam Constitutional: Well developed, well nourished, no acute distress, non-toxic appearance. Pulse ox on 2 L 95%. She has a frequent productive sounding cough. HENT: Normocephalic, atraumatic, bilateral external ears normal, oropharynx moist, nose normal. [] Eyes: conjunctiva normal, no discharge. [] Neck: Normal range of motion, supple, no stridor. [] Cardiovascular:Heart rate regular rhythm, no murmur [] Lungs & Thorax: Breath sounds present bilaterally. Expiratory wheezes throughout. Significant rhonchi throughout. Skin: Warm, dry, no erythema, no rash. [] Extremities: No tenderness, no cyanosis, no clubbing, ROM intact, no edema. [] Neurologic: Alert and oriented X 3, normal motor function, no focal deficits noted. [] EKG EKG [] Radiology/Procedures Radiology/Procedures One view portable chest x-ray read by the radiologist. Left lower lobe atelectasis or infiltrate.[] Course & Med Decision Making Course & Med Decision Making Pertinent Labs and Imaging studies reviewed. (See chart for details) 76-year-old female with a history of COPD presents with failed outpatient treatment of COPD with 1 month of cough, shortness of air, hypoxia. She has had a course of antibiotics and also has used her nebulizer at home. We will give her some IV steroids, a breathing treatment, get some labs and an x-ray. She is agreeable to that plan. Patient's chest x-ray shows atelectasis or infiltrate. We will start her on IV antibiotics. I discussed the case with Dr. Ritchie is agreeable to admit the patient. I believe the patient is stable for admission to [facility]. We will treat her for COPD and pneumonia. I wrote bridge orders. [] Dragon Disclaimer Dragon Disclaimer This chart was dictated in whole or in part using Voice Recognition software in a busy, high-work load, and often noisy Emergency Department environment. It may contain unintended and wholly unrecognized errors or omissions. Departure Departure: Impression: Primary Impression: COPD exacerbation Additional Impression: Pneumonia Disposition: ADMITTED INPATIENT Admitting Physician: Scott Ritchie Condition: STABLE Referrals: ZAIDA BOBBY MD (PCP) Problem Qualifiers REBECCA LUCERO MD Nov 29, 2016 09:24
[2016-11-29] MEDS ORDERED: methylPREDNISolone SOD SUCC PF 125 MG/2 ML VIAL. IV ONE (09:30)
[2016-11-29] MEDS ORDERED: IPRATRPIUM/ALBUTEROL 0.5/2.5MG 3 ML NEBU. NEB ONE (09:30)
[2016-11-29 09:44] LABS: BASO # 0.1 x10^3/uL (0.0-0.2); BASO % 1 % (0-3); EOS # 3.7 x10^3/uL (0.0-0.7); EOS % 34 % (0-3); HEMATOCRIT 35.1 % (36.0-47.0); HEMOGLOBIN 12.1 g/dL (12.0-15.5); LYMPH # 2.7 x10^3/uL (1.0-4.8); LYMPH % 25 % (24-48); MEAN CORPUSCULAR HEMOGLOBIN 30 pg (25-35); MEAN CORPUSCULAR HGB CONC 34 g/dL (31-37); MEAN CORPUSCULAR VOLUME 88 fL (79-100); MONO # 0.8 x10^3/uL (0.0-1.1); MONO % 7 % (0-9); NEUT # 3.6 x10^3uL (1.8-7.7); NEUT % 33 % (31-73); PLATELET COUNT 199 x10^3/uL (140-400); RED BLOOD COUNT 4.01 x10^6/uL (3.50-5.40); RED CELL DISTRIBUTION WIDTH 13.7 % (11.5-14.5); WHITE BLOOD COUNT 10.9 x10^3/uL (4.0-11.0)
[2016-11-29 10:08] LABS: ALBUMIN/GLOBULIN RATIO 0.9 (1.0-1.7); CALCIUM 8.6 mg/dL (8.5-10.1); CREATININE 1.3 mg/dL (0.6-1.0); GFR 39.9; POTASSIUM 3.5 mmol/L (3.5-5.1); TOTAL BILIRUBIN 0.5 mg/dL (0.2-1.0); TOTAL PROTEIN 6.3 g/dL (6.4-8.2)
[2016-11-29 11:55] VITALS: BP 124/59
[2016-11-29] MEDS: IPRATRPIUM/ALBUTEROL 0.5/2.5MG 3 ML NEBU. NEB SCH ×2 (12:00→16:00)
[2016-11-29] MEDS ORDERED: AZIT250T6 PO (12:08)
[2016-11-29] MEDS ORDERED: FLUT9.9S NS (12:08)
[2016-11-29] MEDS ORDERED: ESCITALOPRAM OX20 MG PO (12:08)
[2016-11-29] MEDS ORDERED: LIDO700A39 TP (12:08)
[2016-11-29] MEDS ORDERED: LEVO25TA4 PO (12:08)
[2016-11-29] MEDS ORDERED: GABA-585 PO (12:08)
[2016-11-29] MEDS ORDERED: ROFL500T7 PO (12:08)
[2016-11-29] MEDS ORDERED: ESTR1TAB15 PO (12:08)
[2016-11-29] MEDS ORDERED: ATOR20TA58 PO (12:08)
[2016-11-29] MEDS ORDERED: FURO80TA3 PO (12:08)
[2016-11-29] MEDS ORDERED: DILT240C66 PO (12:12)
[2016-11-29] MEDS ORDERED: Cardizem CD PO (12:15)
[2016-11-29] MEDS ORDERED: HYDROcodone/APAP 10/325 1 TAB TABLET PO PRN (12:45)
[2016-11-29] MEDS ORDERED: ACETAMINOPHEN 500 MG TABLET PO PRN (12:45)
[2016-11-29] MEDS ORDERED: MECLIZINE 12.5 MG TABLET. PO PRN (12:45)
[2016-11-29] MEDS ORDERED: IPRATRPIUM/ALBUTEROL 0.5/2.5MG 3 ML NEBU. NEB PRN (12:45)
--- NOTE | 2016-11-29 13:12 | PDOC1 ---
History of Present Illness Reason for Visit: Sinusitis History of Present Illness Pt states that she developed what she thought was "another sinus infection" about 10 days ago. She saw her PCP Dr. Thorpe and was put on Cipro. She says she did not get better and it "made me itch." She went in to the walk-in clinic this morning and Dr. Bazan sent her to the ER as her sats were only in the 80's on room air. Pt does have a hx of COPD and has been hospitalized for it before. Pt states that she is feeling better since getting up from the ER. She does have O2 at home but does not wear it all the time. She denies blood in her stool, n/v, fever, chest pain, rash, dizziness, confusion, or difficulty walking. She does c/o a "sinus LUCERO." Chief Complaint: SHORTNESS OF BREATH Allergies: Coded Allergies: Tetracyclines (Verified Allergy, Intermediate, Unknown, 03/04/15) adhesive (Verified Allergy, Intermediate, 03/04/15) amoxicillin (Verified Allergy, Intermediate, tingling sensation all over, 10/26/15) cefotaxime (Verified Allergy, Intermediate, 03/04/15) clavulanic acid (Verified Allergy, Intermediate, tingling sensation all over, 10/26/15) clindamycin (Verified Allergy, Intermediate, 03/04/15) vancomycin (Verified Allergy, Intermediate, 03/04/15) ciprofloxacin (Verified Allergy, Unknown, 11/29/16) tramadol (Verified Allergy, Unknown, 11/29/16) Past Medical History Cardiac: HTN, Other (Chronic edema (takes lasix, but no hx of CHF per pt)) Pulmonary: COPD Past Surgical History: Cholecystectomy, (x3), Total knee replacement (x 2), Hysterectomy, Other (Breast reduction, Broken right leg September 2016, sinus surgery x 3) Past Social History Smoke: No Alcohol: none Drugs: None Lives: with Family Review of Systems Review Of Systems Fourteen system , review of systems has been reviewed. See HPI for pertinent positives and negative responses, other raman all other systems are negative, non pertinent or non contributory Constitutional: No: Fever, Chills, Sweats, Weakness Eyes: No: Blurry vision, Double vision, Itchy Eyes ENT: YES: Nose discharge, Nose congestion, No: Ear pain, Nose pain, Mouth pain Respiratory: YES: Cough, SOB with excertion, No: Orthopnea, Pleuritic Pain Cardiovascular: yes: Edema (Trace), No: Chest Pain, Palpitations, Orthopnea, Paroxysmal Noc. Dyspnea, Lt Headedness Gastrointestinal: No: Nausea, Vomiting, Abdominal Pain, Diarrhea, Constipation , Melena, Hematochezia Genitourinary: No: Dysuria, Henaturia, Urinary Frequency/urgency Musculoskeletal: YES: Joint Pain (Knees) SKIN: YES: Warm, Dry, No Rashes Neurological: YES: Headaches (sinus), No: Confusion, Dizziness, Memory Loss, Seizures, Tremors, Visual Changes Allergies: Coded Allergies: Tetracyclines (Verified Allergy, Intermediate, Unknown, 03/04/15) adhesive (Verified Allergy, Intermediate, 03/04/15) amoxicillin (Verified Allergy, Intermediate, tingling sensation all over, 10/26/15) cefotaxime (Verified Allergy, Intermediate, 03/04/15) clavulanic acid (Verified Allergy, Intermediate, tingling sensation all over, 10/26/15) clindamycin (Verified Allergy, Intermediate, 03/04/15) vancomycin (Verified Allergy, Intermediate, 03/04/15) ciprofloxacin (Verified Allergy, Unknown, 11/29/16) tramadol (Verified Allergy, Unknown, 11/29/16) Medications Current Medications Albuterol/ Ipratropium (Duoneb) 3 ml 1X ONCE NEB Last administered on 09:19; Start 11/29/16 at 09:30; Stop 11/29/16 at 09:31; Status DC Methylprednisolone Sodium Succinate (SOLU-Medrol 125MG VIAL) 60 mg 1X ONCE IV Last administered on 11/29/16 09:40; Start 11/29/16 at 09:30; Stop 11/29/16 at 09:31; Status DC Levofloxacin/ Dextrose 150 ml @ 150 mls/hr 1X ONCE IV Last administered on 11:00; Start 11/29/16 at 10:45; Stop 11/29/16 at 11:44; Status DC Albuterol/ Ipratropium (Duoneb) 3 ml RTQID NEB ; Start 11/29/16 at 12:00; Stop 11/30/16 at 11:59 Acetaminophen (Tylenol) 500 mg PRN Q4HRS PRN PO PAIN; Start 11/29/16 at 12:45; Status UNV Ascorbic Acid (Vitamin C) 500 mg DAILY PO ; Start 11/30/16 at 09:00; Status UNV Atorvastatin Calcium (Lipitor) 20 mg DAILY PO ; Start 11/30/16 at 09:00; Status UNV Cetirizine HCl (ZyrTEC) 10 mg DAILY PO ; Start 11/30/16 at 09:00; Status UNV Vitamin D (Vitamin D3) 2,000 unit DAILY PO ; Start 11/30/16 at 09:00; Status UNV Diltiazem HCl (Cardizem 24hr Cd) 240 mg DAILY PO ; Start 11/30/16 at 09:00; Status UNV Estradiol (Estrace) 1 mg DAILY PO ; Start 11/30/16 at 09:00; Status UNV Furosemide (Lasix) 80 mg DAILY PO ; Start 11/30/16 at 09:00; Status UNV Gabapentin (Neurontin) 100 mg DAILY PO ; Start 11/30/16 at 09:00; Status UNV Acetaminophen/ Hydrocodone Bitart (Lortab 10/325) 1 tab PRN Q8HRS PRN PO PAIN; Start 11/29/16 at 12:45; Status UNV Albuterol/ Ipratropium (Duoneb) 3 ml QID PRN NEB WHEEZING; Start 11/29/16 at 12 :45; Status UNV Levothyroxine Sodium (Synthroid) 75 mcg DAILY PO ; Start 11/30/16 at 09:00; Status UNV Lidocaine (Lidoderm) 1 patch DAILY TP ; Start 11/30/16 at 09:00; Status UNV Meclizine HCl (Antivert) 25 mg TID PRN PRN PO DIZZINESS; Start 11/29/16 at 12: 45; Status UNV Montelukast Sodium (Singulair) 10 mg DAILY PO ; Start 11/30/16 at 09:00; Status UNV Non-Formulary Medication 1 tab DAILY PO ; Start 11/30/16 at 09:00; Status UNV Non-Formulary Medication 2 sprays DAILY NS ; Start 11/30/16 at 09:00; Status UNV Non-Formulary Medication 1 puff BID IH ; Start 11/29/16 at 21:00; Status UNV Non-Formulary Medication 5 ml PRN Q6HRS PRN PO COUGH; Start 11/29/16 at 12:45; Status UNV Non-Formulary Medication 1 cap BID PO ; Start 11/29/16 at 21:00; Status UNV Active Scripts Active Hydrocodone-Apap 10-325 (Hydrocodone Bit/Acetaminophen) 1 Each Tablet 1 Tab PO PRN Q8HRS PRN 30 Days Reported [Cardizem CD] 300mg 1 PO DAILY Cartia Xt (Diltiazem Hcl) 240 Mg Cap.er.24h 240 Mg PO Lidocaine 1 Each Adh..patch 1 Each TP Levothyroxine Sodium 25 Mcg Tablet 1 Tab PO DAILY Gabapentin 100 Mg Capsule 100 Mg PO DAILY Furosemide 80 Mg Tablet 1 Tab PO DAILY Flonase Allergy Relief (Fluticasone Propionate) 9.9 Ml [place].susp 2 Sprays NS DAILY Estradiol 1 Mg Tablet 1 Tab PO DAILY Escitalopram Oxalate 20 Mg Tablet 1 Tab PO DAILY Daliresp (Roflumilast) 500 Mcg Tablet 1 Tab PO DAILY Azithromycin Tablet (Azithromycin) 250 Mg Tablet 500 Mg PO DAILY Atorvastatin Calcium 20 Mg Tablet 1 Tab PO DAILY Potassium Chloride 10 Meq Capsule.er 1 Cap PO BID LAST DOSE GIVEN: DATE: TIME: NEXT DOSE DUE: DATE: TIME: Meclizine Hcl 12.5 Mg Tablet 2 Tab PO TID PRN PRN LAST DOSE GIVEN: DATE: TIME: NEXT DOSE DUE: DATE: TIME: Codeine-Guaifen 10-100 mg/5 ml (Guaifenesin/Codeine Phosphate) 120 Ml Liquid 5 Ml PO PRN Q6HRS PRN Duoneb 0.5-3(2.5) Mg/3 Ml (Albuterol/Ipratropium) 3 Ml Ampul.neb 3 Ml NEB QID PRN LAST DOSE GIVEN: DATE: TIME: NEXT DOSE DUE: DATE: TIME: Proair Respiclick (Albuterol Sulfate) 90 Mcg Aer.pow.ba 1 Puff IH PRN Q4HRS PRN LAST DOSE GIVEN: DATE: TIME: NEXT DOSE DUE: DATE: TIME: Acetaminophen 325 Mg Tablet 500 Mg PO PRN Q4HRS PRN LAST DOSE GIVEN: DATE: TIME: NEXT DOSE DUE: DATE: TIME: Zyrtec (Cetirizine Hcl) 10 Mg Tablet 1 Tab PO DAILY LAST DOSE GIVEN: DATE: TODAY TIME: AM NEXT DOSE DUE: DATE: TOMORR TIME: AM Montelukast Sodium Tablet (Montelukast Sodium) 10 Mg Tablet 1 Tab PO DAILY LAST DOSE GIVEN: DATE: TIME: AM NEXT DOSE DUE: DATE: ORR TIME: AM Vitamin C (Ascorbic Acid) 500 Mg Tablet 500 Mg PO DAILY LAST DOSE GIVEN: DATE: TIME: AM NEXT DOSE DUE: DATE: ORR TIME: AM Vitamin D3 (Cholecalciferol (Vitamin D3)) 1,000 Unit Tablet 2,000 Unit PO DAILY LAST DOSE GIVEN: DATE: TIME: AM NEXT DOSE DUE: DATE: ORR TIME: AM Advair 500-50 Diskus (Fluticasone/Salmeterol) 1 Each Disk.w.dev 1 Puff IH BID LAST DOSE GIVEN: DATE: TIME: AM NEXT DOSE DUE: DATE: TIME: PM Levothyroxine Sodium 75 Mcg Tablet 1 Tab PO DAILY LAST DOSE GIVEN: DATE: TIME: BEFORE BREAKFAST NEXT DOSE DUE: DATE: TIME: BEFORE BREAKFAST Exam Vital Signs Vital Signs Date Time Temp Pulse Resp B/P (MAP) Pulse Ox O2 Delivery O2 Flow Rate FiO2 11/29/16 11:55 97.5 76 18 124/59 (80) 2 Nasal Cannula 11/29/16 09:25 2.0 General Appearance: Alert, Oriented X3, Cooperative, No acute distress HEENT: Atraumatic, PERRLA, EOMI, Mucous membr. moist/pink, Other (Neck supple, full ROM, no JVD, no LAD, no thyromegaly, Bilateral maxillary sinus TTP) Respiratory: Other (Bibasilar rhonchi, No crackles, scattered expiratory wheezes that clear w/ coughing; respiratory effort is normal and symmetric) Heart: Regular rate, Normal S1, Normal S2, No murmurs Cardiac: HTN Abdominal: Normal bowel sounds, Soft, No tenderness, No hepatospenomegaly, No masses Extremities: Normal pulses, Other (Trace bipedal edema, Haydee's neg bilaterally ) Skin: No rashes, No breakdown Neuro: Normal speech, Strength at 5/5 X4 ext, Normal tone, Sensation intact, Cranial nerves 3-12 NL Psych/Mental Status: Mental status NL, Mood NL Assessment/Plan Assessment/Plan 1. Acute on chronic COPD exacerbation: Pt to be on nebs, IV steroids, IV abx. Hold Zmax while taking Levaquin (pt reports Dr. Sherman gives it to her for her chronic lung disease). 2. Possible pneumonia: WBC normal, afebrile. Could be atelectasis. Blood cultures pending, continue abx. 3. Acute on chronic respiratory failure: See above. 4. Sinusitis: I suspect the steroids and abx will help improve her sinus infection as well, but if not improved by Thursday, we will order a CT of her sinuses. 5. DVT proph: Lovenox. 6. Mild PEM: Encourage healthy diet, monitor for worsening. 7. HTN: Cont home meds. 8. Edema: Continue diuretics. BNP was elevated, but no evidence of CHF on CXR , and pt reports negative cardiac workup in Apr of this year. We will monitor for worsening. COURSE Allergies Coded Allergies Type Severity Reaction Last Updated Verified Tetracyclines Allergy Intermediate Unknown 03/04/15 Yes adhesive Allergy Intermediate 03/04/15 Yes amoxicillin Allergy Intermediate tingling sensation all over 10/26/15 Yes cefotaxime Allergy Intermediate 03/04/15 Yes clavulanic acid Allergy Intermediate tingling sensation all over 10/26/15 Yes clindamycin Allergy Intermediate 03/04/15 Yes vancomycin Allergy Intermediate 03/04/15 Yes ciprofloxacin Allergy Unknown 11/29/16 Yes tramadol Allergy Unknown 11/29/16 Yes Laboratory Tests Test 11/29/16 09:25 White Blood Count 10.9 x10^3/uL (4.0-11.0) Red Blood Count 4.01 x10^6/uL (3.50-5.40) Hemoglobin 12.1 g/dL (12.0-15.5) Hematocrit 35.1 % (36.0-47.0) Mean Corpuscular Volume 88 fL (79-100) Mean Corpuscular Hemoglobin 30 pg (25-35) Mean Corpuscular Hemoglobin Concent 34 g/dL (31-37) Red Cell Distribution Width 13.7 % (11.5-14.5) Platelet Count 199 x10^3/uL (140-400) Neutrophils (%) (Auto) 33 % (31-73) Lymphocytes (%) (Auto) 25 % (24-48) Monocytes (%) (Auto) 7 % (0-9) Eosinophils (%) (Auto) 34 % (0-3) Basophils (%) (Auto) 1 % (0-3) Neutrophils # (Auto) 3.6 x10^3uL (1.8-7.7) Lymphocytes # (Auto) 2.7 x10^3/uL (1.0-4.8) Monocytes # (Auto) 0.8 x10^3/uL (0.0-1.1) Eosinophils # (Auto) 3.7 x10^3/uL (0.0-0.7) Basophils # (Auto) 0.1 x10^3/uL (0.0-0.2) Sodium Level 137 mmol/L (136-145) Potassium Level 3.5 mmol/L (3.5-5.1) Chloride Level 101 mmol/L (98-107) Carbon Dioxide Level 28 mmol/L (21-32) Anion Gap 8 (6-14) Blood Urea Nitrogen 8 mg/dL (7-20) Creatinine 1.3 mg/dL (0.6-1.0) Estimated GFR (Cockcroft-Gault) 39.9 BUN/Creatinine Ratio 6 (6-20) Glucose Level 78 mg/dL (70-99) Calcium Level 8.6 mg/dL (8.5-10.1) Total Bilirubin 0.5 mg/dL (0.2-1.0) Aspartate Amino Transf (AST/SGOT) 25 U/L (15-37) Alanine Aminotransferase (ALT/SGPT) 13 U/L (14-59) Alkaline Phosphatase 120 U/L (46-116) Creatine Kinase 38 U/L (26-192) Creatine Kinase MB (Mass) 0.7 ng/mL (0.0-3.6) Creatine Kinase MB Relative Index 1.8 % (0-4) Troponin I Quantitative < 0.017 ng/mL (0-0.055) [id number] Natriuretic Peptide 1421 pg/mL (0-449) Total Protein 6.3 g/dL (6.4-8.2) Albumin 3.0 g/dL (3.4-5.0) Albumin/Globulin Ratio 0.9 (1.0-1.7) Current Medications Medications (Trade) Dose Ordered Sig/Delmi Route PRN Reason Start Time Stop Time Status Last Admin Dose Admin Albuterol/ Ipratropium (Duoneb) 3 ml 1X ONCE NEB 11/29/16 09:30 11/29/16 09:31 DC 11/29/16 09:19 Methylprednisolone Sodium Succinate (SOLU-Medrol 125MG VIAL) 60 mg 1X ONCE IV 11/29/16 09:30 11/29/16 09:31 DC 11/29/16 09:40 Levofloxacin/ Dextrose 150 ml @ 150 mls/hr 1X ONCE IV 11/29/16 10:45 11/29/16 11:44 DC 11/29/16 11:00 Albuterol/ Ipratropium (Duoneb) 3 ml RTQID NEB 11/29/16 12:00 11/30/16 11:59 Acetaminophen (Tylenol) 500 mg PRN Q4HRS PRN PO PAIN 11/29/16 12:45 UNV Ascorbic Acid (Vitamin C) 500 mg DAILY PO 11/30/16 09:00 UNV Atorvastatin Calcium (Lipitor) 20 mg DAILY PO 11/30/16 09:00 UNV Cetirizine HCl (ZyrTEC) 10 mg DAILY PO 11/30/16 09:00 UNV Vitamin D (Vitamin D3) 2,000 unit DAILY PO 11/30/16 09:00 UNV Diltiazem HCl (Cardizem 24hr Cd) 240 mg DAILY PO 11/30/16 09:00 UNV Estradiol (Estrace) 1 mg DAILY PO 11/30/16 09:00 UNV Furosemide (Lasix) 80 mg DAILY PO 11/30/16 09:00 UNV Gabapentin (Neurontin) 100 mg DAILY PO 11/30/16 09:00 UNV Acetaminophen/ Hydrocodone Bitart (Lortab 10/325) 1 tab PRN Q8HRS PRN PO PAIN 11/29/16 12:45 UNV Albuterol/ Ipratropium (Duoneb) 3 ml QID PRN NEB WHEEZING 11/29/16 12:45 UNV Levothyroxine Sodium (Synthroid) 75 mcg DAILY PO 11/30/16 09:00 UNV Lidocaine (Lidoderm) 1 patch DAILY TP 11/30/16 09:00 UNV Meclizine HCl (Antivert) 25 mg TID PRN PRN PO DIZZINESS 11/29/16 12:45 UNV Montelukast Sodium (Singulair) 10 mg DAILY PO 11/30/16 09:00 UNV Non-Formulary Medication 1 tab DAILY PO 11/30/16 09:00 UNV Non-Formulary Medication 2 sprays DAILY NS 11/30/16 09:00 UNV Non-Formulary Medication 1 puff BID IH 11/29/16 21:00 UNV Non-Formulary Medication 5 ml PRN Q6HRS PRN PO COUGH 11/29/16 12:45 UNV Non-Formulary Medication 1 cap BID PO 11/29/16 21:00 UNV Vital Signs Date Time Temp Pulse Resp B/P (MAP) Pulse Ox O2 Delivery O2 Flow Rate FiO2 11/29/16 11:55 97.5 76 18 124/59 (80) 2 Nasal Cannula 11/29/16 09:25 2.0 AP portable chest radiograph 11/29/2016 Clinical History: Shortness of breath. An AP portable erect digital radiograph of the chest was obtained. Comparison study is dated 10/29/2015. A right subclavian [id number] type catheter is unchanged in position. The cardiac silhouette is normal in size. The thoracic aorta is tortuous. Atherosclerotic calcification of the thoracic aorta is seen. Patchy left lower lobe atelectasis and/or infiltrate is noted. There is a small left pleural effusion. No pneumothorax is seen. Moderate S shaped curvature of the thoracolumbar spine is seen. There are associated degenerative changes. Impression: Patchy left lower lobe atelectasis and/or infiltrate with small left pleural effusion. SHEA PORTILLO MD Nov 29, 2016 13:12
[2016-11-29] MEDS ORDERED: guaiFENesin/CODEINE 100mg/10mg 5 ML LIQUID PO PRN (13:15)
[2016-11-29] MEDS: ENOXAPARIN 40 MG/0.4 ML DISP.SYRIN. SQ SCH (16:50)
[2016-11-29 16:55] VITALS: BP 133/71
[2016-11-29] MEDS: ALBUTEROL SULFATE 2.5 MG/3 ML NEBU. NEB SCH ×2 (17:33→20:49)
[2016-11-29 19:23] VITALS: BP 152/65
[2016-11-29] MEDS: POTASSIUM CHLORIDE 10 MEQ TABLET.ER. PO SCH (20:41)
[2016-11-29] MEDS: BUDESONIDE 0.5 MG/2 ML NEBU NEB SCH (20:49)
[2016-11-29] MEDS ORDERED: NON FORMULARY ITEM (Fluticasone/Salmeterol (Advair 500-50 Diskus) 1 PUFF) IH SCH (21:00)
[2016-11-30 05:24] VITALS: BP 152/90
[2016-11-30] MEDS: LEVOTHYROXINE 75 MCG TABLET PO SCH (05:46)
[2016-11-30] MEDS: ALBUTEROL SULFATE 2.5 MG/3 ML NEBU. NEB SCH ×4 (05:55→20:56)
[2016-11-30 06:24] LABS: HEMOGLOBIN 11.1 g/dL (12.0-15.5); MEAN CORPUSCULAR HEMOGLOBIN 30 pg (25-35); MEAN CORPUSCULAR HGB CONC 35 g/dL (31-37); MEAN CORPUSCULAR VOLUME 87 fL (79-100); NEUT % 80 % (31-73); PLATELET COUNT 169 x10^3/uL (140-400); RED BLOOD COUNT 3.66 x10^6/uL (3.50-5.40); RED CELL DISTRIBUTION WIDTH 14.1 % (11.5-14.5); WHITE BLOOD COUNT 6.3 x10^3/uL (4.0-11.0)
[2016-11-30 06:25] LABS: BASO % 0 % (0-3); EOS % 0 % (0-3); LYMPH # 0.7 x10^3/uL (1.0-4.8); LYMPH % 10 % (24-48); MONO # 0.6 x10^3/uL (0.0-1.1); MONO % 10 % (0-9)
[2016-11-30 07:17] LABS: ALBUMIN 2.7 g/dL (3.4-5.0); ALBUMIN/GLOBULIN RATIO 0.8 (1.0-1.7); CALCIUM 8.7 mg/dL (8.5-10.1); CREATININE 1.4 mg/dL (0.6-1.0); GFR 36.7; POTASSIUM 3.8 mmol/L (3.5-5.1); TOTAL BILIRUBIN 0.3 mg/dL (0.2-1.0)
[2016-11-30] MEDS ORDERED: FLU VACC QS2017-18 (36MOS+)/PF 0.5 ML SYRINGE. VAX IM ONE (09:00)
[2016-11-30] MEDS: methylPREDNISolone SOD SUCC PF 125 MG/2 ML VIAL. IV SCH (09:08)
[2016-11-30] MEDS: ATORVASTATIN CALCIUM 20 MG TABLET PO SCH (09:09)
[2016-11-30] MEDS: GABAPENTIN 100 MG CAPSULE. PO SCH (09:09)
[2016-11-30] MEDS: ROFLUMILAST 500 MCG TABLET PO SCH (09:10)
[2016-11-30] MEDS: ESTRADIOL 1 MG TABLET PO SCH (09:10)
[2016-11-30] MEDS: FUROSEMIDE 80 MG TABLET PO SCH (09:10)
[2016-11-30] MEDS: POTASSIUM CHLORIDE 10 MEQ TABLET.ER. PO SCH ×2 (09:10→20:03)
[2016-11-30] MEDS: MONTELUKAST 10 MG TABLET. PO SCH (09:11)
[2016-11-30] MEDS: CHOLECALCIFEROL (VITAMIN D3) 1,000 UNIT TABLET PO SCH (09:11)
[2016-11-30] MEDS: ASCORBIC ACID 500 MG TABLET PO SCH (09:11)
[2016-11-30] MEDS: ESCITALOPRAM 20 MG TABLET. PO SCH (09:11)
[2016-11-30] MEDS: CETIRIZINE HCL 10 MG TABLET PO SCH (09:11)
[2016-11-30] MEDS: LIDOCAINE (700MG/PATCH) PATCH. TP SCH (09:12)
[2016-11-30 09:15] VITALS: BP 118/63
[2016-11-30] MEDS: FLUTICASONE 50MCG/NASAL SPRAY 16GM BOTTLE. NS SCH (09:20)
[2016-11-30] MEDS: BUDESONIDE 0.5 MG/2 ML NEBU NEB SCH ×2 (10:01→20:56)
[2016-11-30 11:37] VITALS: BP 121/68
--- NOTE | 2016-11-30 12:47 | PDOC ---
PROGRESS NOTES Assessment 1. Acute on chronic COPD exacerbation: Pt improving. Continue IV steroids and IV abx. Continue O2 and IS. Hold Zmax while taking Levaquin (pt reports Dr. Sherman gives it to her for her chronic lung disease). 2. Possible pneumonia: WBC normal, afebrile. Could be atelectasis. Blood cultures pending, continue abx. Recheck CXR in AM. 3. Acute on chronic respiratory failure: See above. 4. Sinusitis: Pt is improving. No indication to perform CT sinuses at this time. 5. DVT proph: Lovenox. 6. Mild PEM: Encourage healthy diet, monitor for worsening. 7. HTN: Cont home meds. 8. Edema: Continue diuretics. BNP was elevated, but no evidence of CHF on CXR , and pt reports negative cardiac workup in Apr of this year. We will monitor for worsening. 9. CKD, stage 2-3: Pt reportedly has a nephrology appt in a couple weeks. Unfortunately, it is not appropriate to perform her outpatient labs as an inpatient. She also reports taking 30 BID of KCL at home, but she is on 10 BID here. Her potassium actually went up today. I will continue the lower dose in light of her CKD, and check BMP again in the AM. She may not need that much. 10. Insomnia: Pt reports having been given sleeping medicine in past when in hospital, I will give melatonin 3 mg nightly. Problems: Plan of Care: see other orders Subjective Pt reports she is feeling "better but not all the way better" today. Says she has a hard time sleeping w/ steroids and requests a sleep aid. Denies fever, chest pain, diarrhea, n/v, or rash. Denies leg pain or swelling. Pt reports she is to see a microbiology director in a couple weeks about her CKD. Objective Vital Signs Date Time Temp Pulse Resp B/P (MAP) Pulse Ox O2 Delivery O2 Flow Rate FiO2 11/30/16 11:37 98.1 95 18 121/68 (85) 93 Nasal Cannula 2.0 Intake and Output 12/01/16 07:00 Intake Total 240 ml Balance 240 ml Intake Oral 240 ml # Voids 1 Abdomen: Normal bowel sounds, Soft, No tenderness, No hepatospenomegaly, No masses Heart: Regular rate, Normal S1, Normal S2, No murmurs Extremities: No edema, Normal pulses General: Alert, Oriented X3, Cooperative, No acute distress HEENT: Atraumatic, PERRLA, EOMI, Mucous membr. moist/pink Lungs: Other (Respiratory effort is normal and symmetric. Scattered rhonchi that clear w/ coughing bilaterally. No crackles. ) Neck: No JVD, No thyromegaly, No LAD Neuro: Normal speech, Normal tone, Cranial nerves 3-12 NL Psych/Mental Status: Mental status NL, Mood NL Skin: No rashes Review of Relevant I have reviewed the following items bonnie (where applicable) has been applied. Labs Laboratory Tests Test 11/29/16 09:25 11/30/16 02:00 11/30/16 05:55 White Blood Count 10.9 x10^3/uL (4.0-11.0) 6.3 x10^3/uL (4.0-11.0) Red Blood Count 4.01 x10^6/uL (3.50-5.40) 3.66 x10^6/uL (3.50-5.40) Hemoglobin 12.1 g/dL (12.0-15.5) 11.1 g/dL (12.0-15.5) Hematocrit 35.1 % (36.0-47.0) 32.0 % (36.0-47.0) Mean Corpuscular Volume 88 fL (79-100) 87 fL (79-100) Mean Corpuscular Hemoglobin 30 pg (25-35) 30 pg (25-35) Mean Corpuscular Hemoglobin Concent 34 g/dL (31-37) 35 g/dL (31-37) Red Cell Distribution Width 13.7 % (11.5-14.5) 14.1 % (11.5-14.5) Platelet Count 199 x10^3/uL (140-400) 169 x10^3/uL (140-400) Neutrophils (%) (Auto) 33 % (31-73) 80 % (31-73) Lymphocytes (%) (Auto) 25 % (24-48) 10 % (24-48) Monocytes (%) (Auto) 7 % (0-9) 10 % (0-9) Eosinophils (%) (Auto) 34 % (0-3) 0 % (0-3) Basophils (%) (Auto) 1 % (0-3) 0 % (0-3) Neutrophils # (Auto) 3.6 x10^3uL (1.8-7.7) 5.0 x10^3uL (1.8-7.7) Lymphocytes # (Auto) 2.7 x10^3/uL (1.0-4.8) 0.7 x10^3/uL (1.0-4.8) Monocytes # (Auto) 0.8 x10^3/uL (0.0-1.1) 0.6 x10^3/uL (0.0-1.1) Eosinophils # (Auto) 3.7 x10^3/uL (0.0-0.7) 0.0 x10^3/uL (0.0-0.7) Basophils # (Auto) 0.1 x10^3/uL (0.0-0.2) 0.0 x10^3/uL (0.0-0.2) Sodium Level 137 mmol/L (136-145) 136 mmol/L (136-145) Potassium Level 3.5 mmol/L (3.5-5.1) 3.8 mmol/L (3.5-5.1) Chloride Level 101 mmol/L (98-107) 102 mmol/L (98-107) Carbon Dioxide Level 28 mmol/L (21-32) 28 mmol/L (21-32) Anion Gap 8 (6-14) 6 (6-14) Blood Urea Nitrogen 8 mg/dL (7-20) 13 mg/dL (7-20) Creatinine 1.3 mg/dL (0.6-1.0) 1.4 mg/dL (0.6-1.0) Estimated GFR (Cockcroft-Gault) 39.9 36.7 BUN/Creatinine Ratio 6 (6-20) 9 (6-20) Glucose Level 78 mg/dL (70-99) 145 mg/dL (70-99) Calcium Level 8.6 mg/dL (8.5-10.1) 8.7 mg/dL (8.5-10.1) Total Bilirubin 0.5 mg/dL (0.2-1.0) 0.3 mg/dL (0.2-1.0) Aspartate Amino Transf (AST/SGOT) 25 U/L (15-37) 21 U/L (15-37) Alanine Aminotransferase (ALT/SGPT) 13 U/L (14-59) 13 U/L (14-59) Alkaline Phosphatase 120 U/L (46-116) 105 U/L (46-116) Creatine Kinase 38 U/L (26-192) Creatine Kinase MB (Mass) 0.7 ng/mL (0.0-3.6) Creatine Kinase MB Relative Index 1.8 % (0-4) Troponin I Quantitative < 0.017 ng/mL (0-0.055) HC-Nhg-C-Type Natriuretic Peptide 1421 pg/mL (0-449) Total Protein 6.3 g/dL (6.4-8.2) 6.0 g/dL (6.4-8.2) Albumin 3.0 g/dL (3.4-5.0) 2.7 g/dL (3.4-5.0) Albumin/Globulin Ratio 0.9 (1.0-1.7) 0.8 (1.0-1.7) Thyroid Stimulating Hormone (TSH) 2.927 uIU/mL (0.358-3.740) Medications Current Medications Albuterol/ Ipratropium (Duoneb) 3 ml 1X ONCE NEB Last administered on 09:19; Start 11/29/16 at 09:30; Stop 11/29/16 at 09:31; Status DC Methylprednisolone Sodium Succinate (SOLU-Medrol 125MG VIAL) 60 mg 1X ONCE IV Last administered on 11/29/16 09:40; Start 11/29/16 at 09:30; Stop 11/29/16 at 09:31; Status DC Levofloxacin/ Dextrose 150 ml @ 150 mls/hr 1X ONCE IV Last administered on 11:00; Start 11/29/16 at 10:45; Stop 11/29/16 at 11:44; Status DC Albuterol/ Ipratropium (Duoneb) 3 ml RTQID NEB ; Start 11/29/16 at 12:00; Stop 11/29/16 at 17:26; Status DC Acetaminophen (Tylenol) 500 mg PRN Q4HRS PRN PO PAIN; Start 11/29/16 at 12:45 Ascorbic Acid (Vitamin C) 500 mg DAILY PO Last administered on 11/30/16 09:11 ; Start 11/30/16 at 09:00 Atorvastatin Calcium (Lipitor) 20 mg DAILY PO Last administered on 11/30/16 09 :09; Start 11/30/16 at 09:00 Cetirizine HCl (ZyrTEC) 10 mg DAILY PO Last administered on 11/30/16 09:11; Start 11/30/16 at 09:00 Vitamin D (Vitamin D3) 2,000 unit DAILY PO Last administered on 11/30/16 09:11 ; Start 11/30/16 at 09:00 Diltiazem HCl (Cardizem 24hr Cd) 240 mg DAILY PO Last administered on 09:17; Start 11/30/16 at 09:00 Estradiol (Estrace) 1 mg DAILY PO Last administered on 11/30/16 09:10; Start 11/30/16 at 09:00 Furosemide (Lasix) 80 mg DAILY PO Last administered on 11/30/16 09:10; Start 11/30/16 at 09:00 Gabapentin (Neurontin) 100 mg DAILY PO Last administered on 11/30/16 09:09; Start 11/30/16 at 09:00 Acetaminophen/ Hydrocodone Bitart (Lortab 10/325) 1 tab PRN Q8HRS PRN PO PAIN Last administered on 11/29/16 23:08; Start 11/29/16 at 12:45 Albuterol/ Ipratropium (Duoneb) 3 ml PRN QID PRN NEB WHEEZING; Start 11/29/16 at 12:45 Levothyroxine Sodium (Synthroid) 75 mcg DAILY07 PO Last administered on 05:46; Start 11/30/16 at 07:00 Lidocaine (Lidoderm) 1 patch DAILY TP Last administered on 11/30/16 09:12; Start 11/30/16 at 09:00 Meclizine HCl (Antivert) 25 mg TID PRN PRN PO DIZZINESS; Start 11/29/16 at 12: 45 Montelukast Sodium (Singulair) 10 mg DAILY PO Last administered on 11/30/16 09 :11; Start 11/30/16 at 09:00 Escitalopram Oxalate (Lexapro) 20 mg DAILY PO Last administered on 11/30/16 09 :11; Start 11/30/16 at 09:00 Fluticasone Propionate (Flonase) 2 spray DAILY NS Last administered on 09:20; Start 11/30/16 at 09:00 Non-Formulary Medication 1 puff BID IH ; Start 11/29/16 at 21:00; Status UNV Guaifenesin/ Codeine Phosphate (Robitussin Ac) 5 ml PRN Q6HRS PRN PO COUGH; Start 11/29/16 at 13:15 Potassium Chloride (Klor-Con) 10 meq BID PO Last administered on 11/30/16 09: 10; Start 11/29/16 at 21:00 Enoxaparin Sodium (Lovenox) 40 mg Q24H SQ Last administered on 11/29/16 16:50 ; Start 11/29/16 at 14:00 Levofloxacin/ Dextrose 100 ml @ 100 mls/hr Q24H IV ; Start 11/30/16 at 12:00; Status Cancel Methylprednisolone Sodium Succinate (SOLU-Medrol 125MG VIAL) 125 mg DAILY IV Last administered on 11/30/16 09:08; Start 11/30/16 at 09:00 Influenza Virus Vaccine Quadrival (Fluarix Quad [id number] Syringe) 0.5 ml ONCE ONCE VAX IM Last administered on 11/30/16 09:19; Start 11/30/16 at 09:00; Stop 11/30/16 at 09:05; Status DC Albuterol Sulfate (Ventolin) 2.5 mg RTQID NEB Last administered on 11/30/16 10 :01; Start 11/29/16 at 16:00 Budesonide (Pulmicort) 0.5 mg RTBID NEB Last administered on 11/30/16 10:01; Start 11/29/16 at 20:00 Levofloxacin/ Dextrose 150 ml @ 150 mls/hr Q48H IV ; Start 12/01/16 at 12:00 Active Scripts Active Hydrocodone-Apap 10-325 (Hydrocodone Bit/Acetaminophen) 1 Each Tablet 1 Tab PO PRN Q8HRS PRN 30 Days Reported [Cardizem CD] 300mg 1 PO DAILY Cartia Xt (Diltiazem Hcl) 240 Mg Cap.er.24h 240 Mg PO Lidocaine 1 Each Adh..patch 1 Each TP Levothyroxine Sodium 25 Mcg Tablet 1 Tab PO DAILY Gabapentin 100 Mg Capsule 100 Mg PO DAILY Furosemide 80 Mg Tablet 1 Tab PO DAILY Flonase Allergy Relief (Fluticasone Propionate) 9.9 Ml [place].susp 2 Sprays NS DAILY Estradiol 1 Mg Tablet 1 Tab PO DAILY Escitalopram Oxalate 20 Mg Tablet 1 Tab PO DAILY Daliresp (Roflumilast) 500 Mcg Tablet 1 Tab PO DAILY Azithromycin Tablet (Azithromycin) 250 Mg Tablet 500 Mg PO DAILY Atorvastatin Calcium 20 Mg Tablet 1 Tab PO DAILY Potassium Chloride 10 Meq Capsule.er 1 Cap PO BID LAST DOSE GIVEN: DATE: TIME: NEXT DOSE DUE: DATE: TIME: Meclizine Hcl 12.5 Mg Tablet 2 Tab PO TID PRN PRN LAST DOSE GIVEN: DATE: TIME: NEXT DOSE DUE: DATE: TIME: Codeine-Guaifen 10-100 mg/5 ml (Guaifenesin/Codeine Phosphate) 120 Ml Liquid 5 Ml PO PRN Q6HRS PRN Duoneb 0.5-3(2.5) Mg/3 Ml (Albuterol/Ipratropium) 3 Ml Ampul.neb 3 Ml NEB QID PRN LAST DOSE GIVEN: DATE: TIME: NEXT DOSE DUE: DATE: TIME: Proair Respiclick (Albuterol Sulfate) 90 Mcg Aer.pow.ba 1 Puff IH PRN Q4HRS PRN LAST DOSE GIVEN: DATE: TIME: NEXT DOSE DUE: DATE: TIME: Acetaminophen 325 Mg Tablet 500 Mg PO PRN Q4HRS PRN LAST DOSE GIVEN: DATE: TIME: NEXT DOSE DUE: DATE: TIME: Zyrtec (Cetirizine Hcl) 10 Mg Tablet 1 Tab PO DAILY LAST DOSE GIVEN: DATE: TODAY TIME: AM NEXT DOSE DUE: DATE: TOMORROW TIME: AM Montelukast Sodium Tablet (Montelukast Sodium) 10 Mg Tablet 1 Tab PO DAILY LAST DOSE GIVEN: DATE: TODAY TIME: AM NEXT DOSE DUE: DATE: TOMORROW TIME: AM Vitamin C (Ascorbic Acid) 500 Mg Tablet 500 Mg PO DAILY LAST DOSE GIVEN: DATE: TODAY TIME: AM NEXT DOSE DUE: DATE: TOMORROW TIME: AM Vitamin D3 (Cholecalciferol (Vitamin D3)) 1,000 Unit Tablet 2,000 Unit PO DAILY LAST DOSE GIVEN: DATE: TODAY TIME: AM NEXT DOSE DUE: DATE: TOMORROW TIME: AM Advair 500-50 Diskus (Fluticasone/Salmeterol) 1 Each Disk.w.dev 1 Puff IH BID LAST DOSE GIVEN: DATE: TIME: AM NEXT DOSE DUE: DATE: TIME: PM Levothyroxine Sodium 75 Mcg Tablet 1 Tab PO DAILY LAST DOSE GIVEN: DATE: TIME: BEFORE BREAKFAST NEXT DOSE DUE: DATE: TIME: BEFORE BREAKFAST Vitals/I & O Vital Sign - Last 24 Hours 11/29/16 11/29/16 11/29/16 11/29/16 13:07 16:55 17:36 19:23 Temp 98.0 97.7 Pulse 80 85 Resp 18 18 B/P (MAP) 133/71 (91) 152/65 (94) Pulse Ox 2 95 93 O2 Delivery Nasal Cannula Nasal Cannula Nasal Cannula Nasal Cannula O2 Flow Rate 2.0 2.0 2.0 11/29/16 11/29/16 11/29/16 11/29/16 20:00 20:50 20:53 23:08 Pulse Ox 93 93 O2 Delivery Nasal Cannula Nasal Cannula Nasal Cannula Nasal Cannula O2 Flow Rate 2.0 2.0 2.0 2.0 11/29/16 11/30/16 11/30/16 11/30/16 23:41 00:08 03:49 05:24 Temp 98.3 Pulse 86 Resp 18 18 18 B/P (MAP) 152/90 (110) Pulse Ox 93 92 O2 Delivery Nasal Cannula Nasal Cannula Nasal Cannula Nasal Cannula O2 Flow Rate 2.0 2.0 2.0 2.0 11/30/16 11/30/16 11/30/16 11/30/16 05:55 08:00 09:15 09:17 Pulse 94 94 Resp 18 B/P (MAP) 118/63 (81) 118/63 Pulse Ox 96 94 O2 Delivery Nasal Cannula Nasal Cannula Nasal Cannula O2 Flow Rate 2.0 2.0 2.0 11/30/16 11/30/16 11/30/16 10:03 10:05 11:37 Temp 98.1 Pulse 95 Resp 18 B/P (MAP) 121/68 (85) Pulse Ox 93 93 93 O2 Delivery Nasal Cannula Nasal Cannula Nasal Cannula O2 Flow Rate 2.0 2.0 2.0 Intake and Output 11/30/16 11/30/16 12/01/16 15:00 23:00 07:00 Intake Total 240 ml Balance 240 ml SHEA PORTILLO MD Nov 30, 2016 12:46
[2016-11-30] MEDS: ENOXAPARIN 40 MG/0.4 ML DISP.SYRIN. SQ SCH (14:38)
[2016-11-30 15:19] VITALS: BP 123/67
[2016-11-30 19:10] VITALS: BP 111/60
[2016-11-30] MEDS: MELATONIN 3 MG TABLET PO SCH (20:02)
[2016-11-30 22:26] VITALS: BP 111/71
[2016-12-01] MEDS: ALBUTEROL SULFATE 2.5 MG/3 ML NEBU. NEB SCH ×4 (05:00→19:49)
[2016-12-01 05:15] VITALS: BP 117/59
[2016-12-01 05:17] LABS: BASO % 0 % (0-3); EOS % 0 % (0-3); HEMATOCRIT 31.6 % (36.0-47.0); HEMOGLOBIN 10.7 g/dL (12.0-15.5); LYMPH # 0.5 x10^3/uL (1.0-4.8); LYMPH % 4 % (24-48); MEAN CORPUSCULAR HEMOGLOBIN 30 pg (25-35); MEAN CORPUSCULAR HGB CONC 34 g/dL (31-37); MEAN CORPUSCULAR VOLUME 89 fL (79-100); MONO # 0.8 x10^3/uL (0.0-1.1); MONO % 7 % (0-9); NEUT % 89 % (31-73); PLATELET COUNT 188 x10^3/uL (140-400); RED BLOOD COUNT 3.55 x10^6/uL (3.50-5.40); RED CELL DISTRIBUTION WIDTH 14.1 % (11.5-14.5); WHITE BLOOD COUNT 11.2 x10^3/uL (4.0-11.0)
[2016-12-01 05:41] LABS: CALCIUM 8.4 mg/dL (8.5-10.1); CREATININE 1.4 mg/dL (0.6-1.0); GFR 36.7; POTASSIUM 3.9 mmol/L (3.5-5.1)
[2016-12-01] MEDS: LEVOTHYROXINE 75 MCG TABLET PO SCH (06:23)
[2016-12-01] MEDS: FLUTICASONE 50MCG/NASAL SPRAY 16GM BOTTLE. NS SCH (08:35)
[2016-12-01] MEDS: ROFLUMILAST 500 MCG TABLET PO SCH (08:36)
[2016-12-01] MEDS: CETIRIZINE HCL 10 MG TABLET PO SCH (08:36)
[2016-12-01] MEDS: methylPREDNISolone SOD SUCC PF 125 MG/2 ML VIAL. IV SCH (08:36)
[2016-12-01] MEDS: FUROSEMIDE 80 MG TABLET PO SCH (08:36)
[2016-12-01] MEDS: ESCITALOPRAM 20 MG TABLET. PO SCH (08:36)
[2016-12-01] MEDS: LIDOCAINE (700MG/PATCH) PATCH. TP SCH (08:36)
[2016-12-01] MEDS: CHOLECALCIFEROL (VITAMIN D3) 1,000 UNIT TABLET PO SCH (08:36)
[2016-12-01] MEDS: ASCORBIC ACID 500 MG TABLET PO SCH (08:37)
[2016-12-01] MEDS: ATORVASTATIN CALCIUM 20 MG TABLET PO SCH (08:37)
[2016-12-01] MEDS: MONTELUKAST 10 MG TABLET. PO SCH (08:37)
[2016-12-01] MEDS: POTASSIUM CHLORIDE 10 MEQ TABLET.ER. PO SCH ×2 (08:37→20:52)
[2016-12-01] MEDS: ESTRADIOL 1 MG TABLET PO SCH (08:37)
[2016-12-01] MEDS: GABAPENTIN 100 MG CAPSULE. PO SCH (08:38)
--- NOTE | 2016-12-01 10:09 | RAD ---
EXAM: Chest 2 views. HISTORY: Pneumonia. COMPARISON: 11/29/2016. FINDINGS: Frontal and lateral views of the chest are obtained. A right-sided port catheter has its tip in the superior cavoatrial junction. The previously noted left basilar infiltrate has almost completely resolved. Hyperinflation is consistent with chronic obstructive pulmonary disease. There is no pneumothorax or pleural effusion. Lines projecting along the right hemithorax laterally are artifactual. The heart is not enlarged. There are atherosclerotic calcifications of the aorta. There is a moderate lumbar levoscoliosis. IMPRESSION: 1. The left lower lobe infiltrate has mostly resolved. 2. Chronic obstructive pulmonary disease.
[2016-12-01 10:11] VITALS: BP 109/61
[2016-12-01] MEDS: BUDESONIDE 0.5 MG/2 ML NEBU NEB SCH ×2 (11:28→19:49)
[2016-12-01] MEDS: ENOXAPARIN 40 MG/0.4 ML DISP.SYRIN. SQ SCH (13:12)
[2016-12-01 15:29] VITALS: BP 117/61
[2016-12-01 19:58] VITALS: BP 109/59
[2016-12-01] MEDS: MELATONIN 3 MG TABLET PO SCH (20:52)
--- NOTE | 2016-12-01 22:57 | PN ---
DATE: SUBJECTIVE: The patient is resting, slightly propped up in bed, in no apparent distress. On questioning her, she stated that she is feeling generally better. She is now able to cough and expectorate thick yellowish sputum, would like to have some Mucinex to assist with that; however, she had no more chest tightness or wheezing and she has actually slept well last night. PHYSICAL EXAMINATION: GENERAL: When I examined her, she was pale, but no jaundice, cyanosis, thyromegaly, jugular venous distension. No limb edema. VITAL SIGNS: Her heart rate was 88, blood pressure was 117/59, temperature was 97.7, respiratory rate was 18 and oxygen saturation was 94% on room air. HEAD, EYES, EARS, NOSE AND THROAT: Showed normocephalic, atraumatic. NECK: Supple. HEART: Showed normal first and second heart sounds with no gallop, rub or murmur. CHEST: Clear to auscultation. No crepitation or rhonchi. Chest shows central trachea, equal chest expansion, equal air entry, vesicular breath sounds with crepitations. mostly in the left side posteriorly, very few scattered rhonchi. ABDOMEN: Slightly distended, soft, nontender. No guarding or rigidity. No organomegaly. Hernial orifices intact. Bowel sounds normal. NEUROLOGIC: She was awake, alert, oriented in time, place and person. Cranial nerves intact. She moves extremities without difficulty. Her intake over the last 24 hours was 1000, no output was recorded. LABORATORY DATA: As of this morning showed a serum sodium of 143, potassium 3.9, chloride 107, bicarbonate 30, anion gap of 6, BUN 21, creatinine of 1.4, estimated GFR was 37 mL per minute. Her glucose 145, calcium was 8.4. Total bilirubin, AST, ALT, alkaline phosphatase were normal. Total protein 6, albumin 2.7. Her white cell count is 11,200, hemoglobin 10.7, hematocrit 32, MCV 89 and platelet count of 188,000. ASSESSMENT: 1. Acute on chronic obstructive pulmonary disease exacerbation. 2. Left lower lobe infiltrate. 3. Acute on chronic respiratory failure. 4. Hypertension, well controlled. 5. Bilateral lower extremity edema, responding very well to diuretics. 6. Chronic kidney disease stage 2 to 3 with a creatinine that is stable. She has mild protein calorie malnutrition with serum albumin of 2.7 g/dL. PLAN: My plan is to discontinue her IV Solu-Medrol altogether. Started Mucinex and hopefully start discharge her home tomorrow on tapering course of steroids. JANE MORILLO MD DR: CONG/dilip JOB#: [id number] / [id number]
[2016-12-02] MEDS: ALBUTEROL SULFATE 2.5 MG/3 ML NEBU. NEB SCH ×2 (06:10→08:52)
[2016-12-02 06:20] LABS: CALCIUM 8.7 mg/dL (8.5-10.1); CREATININE 1.4 mg/dL (0.6-1.0); GFR 36.7; POTASSIUM 3.7 mmol/L (3.5-5.1)
[2016-12-02 06:21] VITALS: BP 148/94
[2016-12-02] MEDS: LEVOTHYROXINE 75 MCG TABLET PO SCH (06:31)
[2016-12-02 07:02] LABS: BASO % 0 % (0-3); EOS % 1 % (0-3); HEMATOCRIT 31.6 % (36.0-47.0); HEMOGLOBIN 10.6 g/dL (12.0-15.5); LYMPH # 0.5 x10^3/uL (1.0-4.8); LYMPH % 5 % (24-48); MEAN CORPUSCULAR HEMOGLOBIN 30 pg (25-35); MEAN CORPUSCULAR HGB CONC 34 g/dL (31-37); MEAN CORPUSCULAR VOLUME 90 fL (79-100); MONO # 0.6 x10^3/uL (0.0-1.1); MONO % 6 % (0-9); NEUT # 8.7 x10^3uL (1.8-7.7); NEUT % 89 % (31-73); PLATELET COUNT 178 x10^3/uL (140-400); RED BLOOD COUNT 3.52 x10^6/uL (3.50-5.40); RED CELL DISTRIBUTION WIDTH 14.4 % (11.5-14.5); WHITE BLOOD COUNT 9.8 x10^3/uL (4.0-11.0)
[2016-12-02] MEDS: FLUTICASONE 50MCG/NASAL SPRAY 16GM BOTTLE. NS SCH (08:25)
[2016-12-02] MEDS: FUROSEMIDE 80 MG TABLET PO SCH (08:25)
[2016-12-02] MEDS: ASCORBIC ACID 500 MG TABLET PO SCH (08:25)
[2016-12-02] MEDS: ESTRADIOL 1 MG TABLET PO SCH (08:26)
[2016-12-02] MEDS: CHOLECALCIFEROL (VITAMIN D3) 1,000 UNIT TABLET PO SCH (08:26)
[2016-12-02] MEDS: ESCITALOPRAM 20 MG TABLET. PO SCH (08:26)
[2016-12-02] MEDS: POTASSIUM CHLORIDE 10 MEQ TABLET.ER. PO SCH (08:26)
[2016-12-02] MEDS: ATORVASTATIN CALCIUM 20 MG TABLET PO SCH (08:26)
[2016-12-02] MEDS: GABAPENTIN 100 MG CAPSULE. PO SCH (08:27)
[2016-12-02] MEDS: ROFLUMILAST 500 MCG TABLET PO SCH (08:27)
[2016-12-02] MEDS: MONTELUKAST 10 MG TABLET. PO SCH (08:27)
[2016-12-02] MEDS: CETIRIZINE HCL 10 MG TABLET PO SCH (08:28)
[2016-12-02] MEDS: LIDOCAINE (700MG/PATCH) PATCH. TP SCH (08:28)
[2016-12-02] MEDS: BUDESONIDE 0.5 MG/2 ML NEBU NEB SCH (08:52)
[2016-12-02] MEDS ORDERED: predniSONE 20 MG TABLET PO SCH (09:00)
[2016-12-02 10:20] VITALS: BP 107/55
[2016-12-02] MEDS ORDERED: LEVO750T5 PO (10:52)
[2016-12-02] MEDS ORDERED: HEPARIN PF 500 UNIT/5 ML DISP.SYRIN. IV ONE (11:03)
--- NOTE | 2016-12-03 10:45 | PN ---
DATE: 12/02/2016 HOSPITAL COURSE: The patient is a 76-year-old female patient who was admitted on 11/29/2016 with a complaint of shortness of breath and was found to have a left lower lobe infiltrate and acute on chronic COPD exacerbation, acute on chronic hypoxic respiratory failure as well as sinusitis. She was started on steroids and nebulizers, albuterol and Atrovent as well as antibiotic in the form of levofloxacin and she did actually very well, has remained afebrile, hemodynamically stable. Her white cell count is normal. When I saw her today, she was resting almost flat in bed, in no apparent respiratory distress. She was awake, alert, responding appropriately, questioning her, denied any complaint. OBJECTIVE: GENERAL: When I examined her, she was slightly pale, but no jaundice, cyanosis or thyromegaly. No jugular venous distention. No limb edema. VITAL SIGNS: Her heart rate was 80, blood pressure was 109/59, temperature was 98.1, respiratory rate was 20 and oxygen saturation was 97% on room air. HEAD, EYES, EARS, NOSE AND THROAT: Showed normocephalic, atraumatic. NECK: Supple. HEART: Showed normal first and second heart sounds with no gallop, rub or murmur. CHEST: Clear to auscultation. No crepitation or rhonchi. ABDOMEN: Distended, soft, nontender. No guarding or rigidity. No organomegaly. Hernial orifices intact. Bowel sounds normal. NEUROLOGIC: She is awake, alert, responding appropriately. Cranial nerves intact. She moves extremities without difficulty. She ambulates without assistance or assistive devices. LABORATORY DATA: As of this morning showed a white cell count 9800, hemoglobin 11, hematocrit 32, MCV 90 and platelet count of 178,000. Her chemistry showed a serum sodium 142, potassium 3.7, chloride 107, bicarbonate 29, anion gap of 6, BUN 25, creatinine 1.4. Estimated GFR was 36 mL per minute. Her glucose 115. Calcium was 8.7. Total bilirubin, AST, ALT, alkaline phosphatase were normal. Total protein was 6. Albumin 2.7. TSH was 2.97. DISCHARGE MEDICATIONS: She will be discharged home to continue on following medications: Levofloxacin 75 mg p.o. every other day for a total of 6 days, acetaminophen 500 mg every 4 hours, albuterol sulfate 1 puff every 4 to 6 hours as needed, ascorbic acid 500 mg once a day, atorvastatin calcium 20 mg daily, cetirizine 10 mg once a day, cholecalciferol, vitamin D3 2000 International Units p.o. daily, diltiazem for Cartia XT 240 mg once a day, escitalopram oxalate 20 mg daily, Estradiol 1 mg daily, Flonase 2 sprays to each nostril twice a day, Advair Diskus 500/50 one puff twice a day, furosemide 80 mg daily, gabapentin 100 mg once a day, codeine with guaifenesin 5 mL every 6 hours as needed, hydrocodone/APAP 10/325 mg one tablet every 8 hours as needed, ipratropium bromide, albuterol inhaler for DuoNeb 3 mL by nebulizer 4 times a day, levothyroxine 100 mcg once a day, Lidoderm patch 1 topically as needed, meclizine 25 mg 3 times a day, montelukast sodium 10 mg at bedtime, potassium chloride 10 mEq twice a day, Daliresp 500 mcg tablet once a day. She will be also on tapering course of steroids. FINAL DISCHARGE DIAGNOSES: 1. Acute on chronic obstructive pulmonary disease exacerbation. 2. Left lower lobe infiltrate. 3. Acute on chronic respiratory failure. 4. Hypertension, well controlled. 5. Bilateral lower extremity edema, responding very well to diuretics. 6. Chronic kidney disease stage 2 to 3 with creatinine that is stable around 1.4. 7. Mild protein calorie malnutrition. Her serum albumin is only 2.7 g/dL. JANE MORILLO MD DR: CONG/dilip JOB#: [id number] / [id number]
== END 2016-12-02 11:48 | disposition home or self-care (01) | DRG 193 ==
LOC: ER 08:47 → 1 SOUTH 11:28
PROVIDERS: ADMIT Family Medicine; ATTEND Family Medicine
DX: J18.9 Pneumonia, unspecified organism (principal); J96.21 Acute and chronic respiratory failure with hypoxia; N18.3 Chronic kidney disease, stage 3 (moderate); E44.1 Mild protein-calorie malnutrition; J44.0 Chronic obstructive pulmonary disease with (acute) lower respiratory infection; J44.1 Chronic obstructive pulmonary disease with (acute) exacerbation; E03.9 Hypothyroidism, unspecified; I12.9 Hypertensive chronic kidney disease with stage 1 through stage 4 chronic kidney disease, or unspecified chronic kidney disease; G47.00 Insomnia, unspecified; J32.9 Chronic sinusitis, unspecified; Z96.659 Presence of unspecified artificial knee joint; Z90.710 Acquired absence of both cervix and uterus; Z87.440 Personal history of urinary (tract) infections; Z90.49 Acquired absence of other specified parts of digestive tract; Z88.6 Allergy status to analgesic agent; Z88.1 Allergy status to other antibiotic agents; Z88.8 Allergy status to other drugs, medicaments and biological substances; Z91.048 Other nonmedicinal substance allergy status; Z87.81 Personal history of (healed) traumatic fracture
CPT/HCPCS: 36415; 71010; 71020; 80048; 80053; 82553; 83880; 84443; 84484; 85025; 90686; 94250; 94640; 96365; 96375; J1650; J1956; J2930; J7512; J7613; J7620; J7626; 99285-25

== ENCOUNTER 2016-12-22 19:29 | Emergency (ER) | payer MEDICARE, BC ==
[~2016-12-22] VITALS: Ht 157.5 cm; Wt 56.7 kg
[~2016-12-22 19:29] MED LIST changes: +ATOR20TA58 PO; +Cardizem CD PO; +DILT240C66 PO; +FLUT9.9S NS; +GABA-585 PO; +LEVO25TA4 PO; +LEVO750T5 PO; +LIDO700A39 TP
[2016-12-22 20:55] VITALS: BP 115/71
[2016-12-22] MEDS ORDERED: oxyCODONE/APAP 5/325 1 TAB TABLET PO ONE (21:30)
--- NOTE | 2016-12-23 03:44 | ED.ADGEN ---
Past History Past Medical History: A-Fib, Anemia, Anxiety, Arrhythmia, Asthma, Constipation , COPD, Depression, GERD, High Cholesterol, Hypertension, Hypothyroid, Renal Disease, UTI Past Surgical History: Appendectomy, Cholecystectomy, , Hysterectomy, Knee Replacement, Tonsillectomy, Other Smoking: Non-smoker Alcohol Use: None Drug Use: None Adult General Chief Complaint Chief Complaint Right hip pain HPI HPI Patient is a 76-year-old female with multiple medical conditions who presents with accidental fall from sitting assaulting in right shoulder right hip pain. Patient states she was bending over when she lost balance landing on her right side. Patient reports hitting her side of the head, denies headache, loss of consciousness, or neck pain. She is not currently on anticoagulation therapy. Patient was able to use her Tel[employer] alert and family members were contacted. Patient has been ambulatory since fall and arrives by private vehicle. No other acute symptoms or complaints [] Review of Systems Review of Systems Review symptoms as per history of present illness. Current Medications Current Medications Current Medications Medications (Trade) Dose Ordered Sig/Delmi Start Time Stop Time Status Last Admin Dose Admin Oxycodone/ Acetaminophen (Percocet 5/325) 1 tab 1X ONCE 12/22/16 21:30 12/22/16 21:31 DC 12/22/16 21:19 1 TAB Allergies Allergies Allergies Coded Allergies Type Severity Reaction Last Updated Verified Tetracyclines Allergy Intermediate Unknown 03/04/15 Yes adhesive Allergy Intermediate 03/04/15 Yes amoxicillin Allergy Intermediate tingling sensation all over 10/26/15 Yes cefotaxime Allergy Intermediate 03/04/15 Yes ciprofloxacin Allergy Intermediate 12/02/16 Yes clavulanic acid Allergy Intermediate tingling sensation all over 10/26/15 Yes clindamycin Allergy Intermediate 03/04/15 Yes tramadol Allergy Intermediate 12/02/16 Yes vancomycin Allergy Intermediate 03/04/15 Yes Physical Exam Physical Exam Constitutional: Well developed, well nourished, no acute distress, non-toxic appearance. [] HENT: Normocephalic, atraumatic, bilateral external ears normal, oropharynx moist, no oral exudates, nose normal. [] Eyes: PERRLA, EOMI, conjunctiva normal, no discharge. [] Neck: Normal range of motion, no tenderness, supple, no stridor. [] Cardiovascular:Heart rate regular rhythm, no murmur [] Lungs & Thorax: Right lateral chest wall pain, no subcutaneous emphysema or bony crepitus[] Abdomen: Bowel sounds normal, soft, no tenderness, no masses, no pulsatile masses. [] Skin: Warm, dry, no erythema, no rash. [] Back: No tenderness, no CVA tenderness. [] Extremities: R hip pain, no deformity swelling leg shortening or bruising. Right shoulder, soft tissue tenderness, range of motion intact, no gross deformity or malalignment. [] Neurologic: Alert and oriented X 2, normal motor function, normal sensory function, no focal deficits noted. [] Psychologic: Affect normal, judgement normal, mood normal. [] Current Patient Data Vital Signs Vital Signs Date Time Temp Pulse Resp B/P (MAP) Pulse Ox O2 Delivery O2 Flow Rate FiO2 12/22/16 21:19 12 12/22/16 20:55 75 115/71 (86) 98 Room Air 12/22/16 19:55 97.9 EKG EKG [] Radiology/Procedures Radiology/Procedures [Chest x-ray/right hip/right shoulder: No acute bony injury on preliminary ED read.] Course & Med Decision Making Course & Med Decision Making Pertinent Labs and Imaging studies reviewed. (See chart for details) [Accidental fall from standing without evidence of acute injury. ] Final Impression Final Impression [#1 right shoulder contusion #2 to right hip contusion #3 right hip contusion] Problems: Dragon Disclaimer Dragon Disclaimer This electronic medical record was generated, in whole or in part, using a voice recognition dictation system. JANNET ADAMS DO Dec 23, 2016 03:44
--- NOTE | 2016-12-23 07:44 | RAD ---
Indication: Pain after fall last tonight. Technique: AP pelvis and 2 views of the right hip are submitted for review. No comparison is available. Findings: There is no right hip fracture or dislocation. There is mild degenerative change with narrowing of the joint space superiorly and acetabular spurring. Bony pelvis appears intact. There are advanced degenerative changes in the spine with levoscoliosis. Impression: 1. Negative for fracture. 2. Degenerative changes in the right hip and spine.
--- NOTE | 2016-12-23 07:46 | RAD ---
Indication: Trauma, fall tonight. Right shoulder pain. Technique: 3 views of the right shoulder are submitted for review. No comparison is available. Findings: There is no fracture or dislocation. There is mild osteoarthritis at the right AC joint. Port is noted. Impression: Negative for acute fracture.
--- NOTE | 2016-12-23 07:48 | RAD ---
Indication: Pain after fall tonight. Right-sided chest pain. Technique: Two-view chest radiograph was obtained. Comparison is from December 01, 2016. Findings: There is minimal atelectasis or scarring in the left lung base, stable. The lungs otherwise are clear. The heart is not enlarged. There is no heart failure. Port is noted. There is atheromatous disease in the thoracic aorta. There is dextroscoliosis. There is no pneumothorax or pleural effusion. Impression: No acute thoracic findings.
== END 2016-12-22 21:31 | disposition home or self-care (01) ==
LOC: ER 19:29
DX: S70.01XA Contusion of right hip, initial encounter (principal); S40.011A Contusion of right shoulder, initial encounter; F41.9 Anxiety disorder, unspecified; J44.9 Chronic obstructive pulmonary disease, unspecified; K21.9 Gastro-esophageal reflux disease without esophagitis; E78.00 Pure hypercholesterolemia, unspecified; I10 Essential (primary) hypertension; E03.9 Hypothyroidism, unspecified; N28.9 Disorder of kidney and ureter, unspecified; Z87.440 Personal history of urinary (tract) infections; Z86.2 Personal history of diseases of the blood and blood-forming organs and certain disorders involving the immune mechanism; Z88.1 Allergy status to other antibiotic agents; Z88.6 Allergy status to analgesic agent; Z88.8 Allergy status to other drugs, medicaments and biological substances; W19.XXXA Unspecified fall, initial encounter; Y93.89 Activity, other specified; Y99.8 Other external cause status; Y92.89 Other specified places as the place of occurrence of the external cause
CPT/HCPCS: 71020; 73030; 73502; 99284

== ENCOUNTER 2017-07-10 19:49 | Emergency (ER) | payer MEDICARE, BC ==
[~2017-07-10] VITALS: Ht 157.5 cm; Wt 59.9 kg
[~2017-07-10 19:49] MED LIST changes: -ASPI81TA44 PO; +ASPI81TA59 PO
[2017-07-10] MEDS ORDERED: IV RINGERS SOLUTION,LACTATED 1,000 ML IV SCH (20:00)
--- NOTE | 2017-07-10 20:00 | ED.ADGEN ---
Past History Past Medical History: A-Fib, Anemia, Anxiety, Arrhythmia, Asthma, Constipation , COPD, Depression, GERD, High Cholesterol, Hypertension, Hypothyroid, Renal Disease, UTI Past Surgical History: Appendectomy, Cholecystectomy, , Hysterectomy, Knee Replacement, Tonsillectomy, Other Smoking: Non-smoker Alcohol Use: None Drug Use: None Adult General Chief Complaint Chief Complaint ".. I tripped .. I was going to the mail box... then when I got up.. I fell again..".." I was to be using a walker.. but I was nt..." " I just tripped..." HPI HPI Patient is a 77 year old female who presents with hx of falling while going to [employer] box. Pt. states she tripped.. Pt. fell again getting up. Pt. not certain she did not have a near syncopal episode. Pt. has hx of multiple medical problems, CADz, Afib, Anemia, Anxiety, Arrhythmias, COPD, Arthritis, deconditioning. Renal Insuf. and HTN. . Pt. normally follows with Dr. Thorpe. No recent changes in meds. No recent travel or specific ill contacts. Pt. does have a head ache after striking her head on the back during the fall. Took two Aleve prior arrival. Review of Systems Review of Systems Constitutional: Denies fever or chills [] Eyes: Denies change in visual acuity, redness, or eye pain [] HENT: Denies nasal congestion or sore throat [] Respiratory: Denies cough or shortness of breath [] Cardiovascular: No additional information not addressed in HPI [] GI: Denies abdominal pain, nausea, vomiting, bloody stools or diarrhea [] : Denies dysuria or hematuria [] Musculoskeletal: Denies back pain or joint pain Has ]bilateral knees. Bilateral ankles. Lumbar spinal discomfort Integument: Denies rash or skin lesions []has old abrasion left ankle Neurologic: Complaints of headache,. Denies focal weakness or sensory changes [] Endocrine: Denies polyuria or polydipsia [] All other systems were reviewed and found to be within normal limits, except as documented in this note. Family History Family History Noncontributory Current Medications Current Medications Current Medications Medications (Trade) Dose Ordered Sig/Delmi Start Time Stop Time Status Last Admin Dose Admin Acetaminophen (Tylenol) 650 mg 1X ONCE 5/4/18 21:00 07/10/17 21:01 DC 07/10/17 21:40 650 MG Dextrose 25 gm 1X ONCE 07/10/17 22:45 07/10/17 22:46 DC 07/10/17 22:51 25 GM Heparin Sodium (Porcine) (Hep Lock Nursery) 5 unit STK-MED ONCE 07/10/17 22:49 07/10/17 22:50 DC Lactated Ringer's 1,000 ml @ 1,000 mls/hr Q1H 07/10/17 20:00 07/10/17 20:59 DC 07/10/17 21:38 1,000 MLS/HR Allergies Allergies Allergies Coded Allergies Type Severity Reaction Last Updated Verified Tetracyclines Allergy Intermediate Unknown 03/04/15 Yes adhesive Allergy Intermediate 03/04/15 Yes amoxicillin Allergy Intermediate tingling sensation all over 10/26/15 Yes cefotaxime Allergy Intermediate 03/04/15 Yes ciprofloxacin Allergy Intermediate 12/02/16 Yes clavulanic acid Allergy Intermediate tingling sensation all over 10/26/15 Yes clindamycin Allergy Intermediate 03/04/15 Yes tramadol Allergy Intermediate 12/02/16 Yes vancomycin Allergy Intermediate 03/04/15 Yes Physical Exam Physical Exam Constitutional: Mild distress, non-toxic appearance. [] HENT: Normocephalic, contusion posterior scalp, bilateral external ears normal, oropharynx moist, no oral exudates, nose normal. [] Eyes: PERRLA, EOMI, conjunctiva normal, no discharge. [] Neck: Normal range of motion, mild paraspinal muscle tenderness, supple, no stridor. [] Cardiovascular:Heart rate irregular and rhythm, no murmur []PMI to the left Lungs & Thorax: Bilateral breath sounds equal apex scattered wheezes auscultation [] Abdomen: Bowel sounds normal, soft, no tenderness, no masses, no pulsatile masses. Old surgery scars. Skin: Warm, dry, no erythema, no rash. Duration left ankle Back: No tenderness, no CVA tenderness. [] Extremities: Multiple bony points tenderness, no cyanosis, no clubbing, ROM intact, no edema. [] Localizes pain to left knee primarily. And posterior pelvis and lumbar. Bilateral knee scars from previous surgery. Can do bilateral straight leg medicine. Has area chronic pain left sciatica Neurologic: Alert and oriented X 3, no gross motor or sensory function deficits from baseline. no gross focal deficits noted. [] Psychologic: Affect normal, judgement normal, mood normal. [] Current Patient Data Vital Signs Vital Signs Date Time Temp Pulse Resp B/P (MAP) Pulse Ox O2 Delivery O2 Flow Rate FiO2 07/10/17 20:05 98.0 62 16 97 Room Air Lab Results Laboratory Tests Test 07/10/17 20:55 07/10/17 21:23 07/10/17 23:32 Urine Collection Type Unknown Urine Color Yellow Urine Clarity Clear Urine pH 5.5 Urine Specific [place] 1.020 Urine Protein Neg (NEG-TRACE) Urine Glucose (UA) Neg mg/dL (NEG) Urine Ketones (Stick) Neg mg/dL (NEG) Urine Blood Neg (NEG) Urine Nitrite Neg (NEG) Urine Bilirubin Neg (NEG) Urine Urobilinogen Dipstick 0.2 mg/dL (0.2 mg/dL) Urine Leukocyte Esterase Neg (NEG) Urine RBC Occ /HPF (0-2) Urine WBC 1-4 /HPF (0-4) Urine Squamous Epithelial Cells Occ /LPF Urine Bacteria Few /HPF (0-FEW) Urine Mucus Slight /LPF Urine Yeast Present /HPF Urine Opiates Screen Pos (NEG) Urine Methadone Screen Neg (NEG) Urine Barbiturates Neg (NEG) Urine Phencyclidine Screen Neg (NEG) Urine Amphetamine/Methamphetamine Neg (NEG) Urine Benzodiazepines Screen Neg (NEG) Urine Cocaine Screen Neg (NEG) Urine Cannabinoids Screen Neg (NEG) Urine Ethyl Alcohol Neg (NEG) White Blood Count 9.3 x10^3/uL (4.0-11.0) Red Blood Count 3.83 x10^6/uL (3.50-5.40) Hemoglobin 11.8 g/dL (12.0-15.5) L Hematocrit 35.1 % (36.0-47.0) L Mean Corpuscular Volume 92 fL (79-100) Mean Corpuscular Hemoglobin 31 pg (25-35) Mean Corpuscular Hemoglobin Concent 34 g/dL (31-37) Red Cell Distribution Width 14.8 % (11.5-14.5) H Platelet Count 132 x10^3/uL (140-400) L Neutrophils (%) (Auto) 72 % (31-73) Lymphocytes (%) (Auto) 16 % (24-48) L Monocytes (%) (Auto) 11 % (0-9) H Eosinophils (%) (Auto) 1 % (0-3) Basophils (%) (Auto) 0 % (0-3) Neutrophils # (Auto) 6.7 x10^3uL (1.8-7.7) Lymphocytes # (Auto) 1.5 x10^3/uL (1.0-4.8) Monocytes # (Auto) 1.0 x10^3/uL (0.0-1.1) Eosinophils # (Auto) 0.1 x10^3/uL (0.0-0.7) Basophils # (Auto) 0.0 x10^3/uL (0.0-0.2) Prothrombin Time 9.9 SEC (9.4-11.4) Prothrombin Time INR 1.0 (0.9-1.1) PTT 50 SEC (23-33) H Sodium Level 142 mmol/L (136-145) Potassium Level 4.0 mmol/L (3.5-5.1) Chloride Level 109 mmol/L (98-107) H Carbon Dioxide Level 29 mmol/L (21-32) Anion Gap 4 (6-14) L Blood Urea Nitrogen 18 mg/dL (7-20) Creatinine 1.6 mg/dL (0.6-1.0) H Estimated GFR (Cockcroft-Gault) 31.3 Glucose Level 48 mg/dL (70-99) L Calcium Level 8.1 mg/dL (8.5-10.1) L Magnesium Level 2.1 mg/dL (1.8-2.4) Total Bilirubin 0.5 mg/dL (0.2-1.0) Direct Bilirubin 0.1 mg/dL (0.0-0.2) Aspartate Amino Transferase (AST) 27 U/L (15-37) Alanine Aminotransferase (ALT) 31 U/L (14-59) Alkaline Phosphatase 65 U/L (46-116) Creatine Kinase 47 U/L (26-192) Creatine Kinase MB (Mass) 0.6 ng/mL (0.0-3.6) Creatine Kinase MB Relative Index 1.3 % (0-4) Troponin I Quantitative < 0.017 ng/mL (0-0.055) JJ-Hcj-[id number]-Type Natriuretic Peptide 697 pg/mL (0-449) H Total Protein 5.5 g/dL (6.4-8.2) L Albumin 3.0 g/dL (3.4-5.0) L Lipase 213 U/L (73-393) Glucose (Fingerstick) 229 mg/dL (70-99) H EKG EKG I interpretation of EKG shows[] Radiology/Procedures Radiology/Procedures My interpretation of CXR shows a port, DJD, Arthritis changes. No acute cardiopulmonary changes. []My interpretation CT head shows no shift, mass, edema, bleed, or fracture. Does have white matter disease changes. No obvious acute changes. My interpretation of cervical shows diffuse degenerative joint changes but no obvious fracture or displacement. CT lumbar spine shows severe degenerative joint changes in for a mole stenosis. Questionable lucency at L4 left this does not match the area of her current discomfort. (She has chronic low back pain and sciatica.) I interpretation of right knee film shows no obvious fracture dislocation. Has extensive hardware were replacement of the knee including rods in to femur and tibia Course & Med Decision Making Course & Med Decision Making Pertinent Labs and Imaging studies reviewed. (See chart for details) Pt. currently refusing admission. Begged pt. to reconsider. Advised she would not stay. Pt. exhibits UCAR capacity. Aware of risks of discharge and missed dx. without adequate observation period. Especially with head injury. Pt. encouraged to use her walker. [] Final Impression Final Impression 1. Fall[] 2. Hypoglycemia 3. Thrombocytopenia 4. Anemia 5. Malnutrition albumin 3.0 6. Gait disorder 7. Elevated PT 8. Closed head injury 9. Hypoglycemia Problems: Dragon Disclaimer Dragon Disclaimer This electronic medical record was generated, in whole or in part, using a voice recognition dictation system. RUBEN PEREZ MD July 10, 2017 20:00
[2017-07-10 20:05] VITALS: BP 143/52
--- NOTE | 2017-07-10 20:58 | EKG ---
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
[2017-07-10] MEDS ORDERED: ACETAMINOPHEN 325 MG TABLET PO ONE (21:00)
[2017-07-10 21:38] LABS: AMPHETAMINE/METHAMPHETAMINE NEG (NEG); BARBITURATES NEG (NEG); BENZODIAZEPINES NEG (NEG); CANNABINOIDS NEG (NEG); COCAINE NEG (NEG); METHADONE NEG (NEG); OPIATES POS (NEG); PHENCYCLIDINE NEG (NEG)
[2017-07-10 21:41] LABS: BILIRUBIN,URINE NEG (NEG); CLARITY,URINE CLEAR; COLOR,URINE YELLOW; GLUCOSE,URINE NEG (NEG)
--- NOTE | 2017-07-10 21:41 | RAD ---
INDICATION: Fall tonight. Neck pain. No prior injury or surgery COMPARISON: None. TECHNIQUE: Axial CT images obtained through the lumbar spine. One or more of the following individualized dose reduction techniques were utilized for this examination: 1. Automated exposure control; 2. Adjustment of the mA and/or kV according to patient size; 3. Use of iterative reconstruction technique. FINDINGS: Severe scoliotic curvature of the lumbar spine with degenerative changes with associated multilevel central canal neural foraminal stenosis. At the L4 level on the left there is a lucency seen at the left lamina extending to facet joint IMPRESSION: 1. Degenerative changes throughout the lumbar spine with multilevel central canal and neural foraminal stenosis with severe scoliotic curvature. 2. Lucency is seen at the L4 level on the left extending through the facet joint. Would correlate with point tenderness since if the patient is having pain in the region this could be from an acute nondisplaced fracture. 3. Severe calcific atherosclerosis. Electronically signed by: Phu Navarro MD (07/10/2017 9:38 PM) [facility]
[2017-07-10 21:42] LABS: BACTERIA,URINE FEW /HPF (0-FEW); NITRITE,URINE NEG (NEG); RBC,URINE OCC /HPF (0-2); SQUAMOUS EPITHELIAL CELL,UR OCC /LPF; UROBILINOGEN,URINE 0.2 mg/dL (0.2 mg/dL); YEAST,URINE PRESENT /HPF
--- NOTE | 2017-07-10 21:53 | RAD ---
INDICATION: Fall tonight. Pain at back of head. No prior injury or surgery COMPARISON: None. TECHNIQUE: Axial CT images obtained through the head and cervical spine without intravenous contrast. Coronal and sagittal reformats processed of cervical spine. One or more of the following individualized dose reduction techniques were utilized for this examination: 1. Automated exposure control; 2. Adjustment of the mA and/or kV according to patient size; 3. Use of iterative reconstruction technique. FINDINGS: Head: No intracranial hemorrhage. No midline shift. Basal cisterns patents. Ventricles and sulci are within normal limits. No acute osseous abnormality. Orbits and paranasal sinuses unremarkable. Cervical: No definite acute fracture. No dislocation. No evidence of perivertebral hematoma. Degenerative changes throughout the spine. Grade 1 anterolisthesis of C4 on 5. Mild retrolisthesis C5 on 6 and grade 1 anterolisthesis of C7 on T1. IMPRESSION: 1. No acute intracranial hemorrhage. 2. Scattered foci of low-attenuation white matter. Nonspecific but can be seen with small vessel ischemic disease. 3. No definite acute fracture or dislocation of the cervical spine. 4. Degenerative changes throughout the cervical spine with multilevel central canal neural foraminal stenosis. Electronically signed by: Phu Navarro MD (07/10/2017 9:50 PM) [facility]
[2017-07-10 22:00] LABS: BASO % 0 % (0-3); EOS # 0.1 x10^3/uL (0.0-0.7); EOS % 1 % (0-3); HEMATOCRIT 35.1 % (36.0-47.0); HEMOGLOBIN 11.8 g/dL (12.0-15.5); LYMPH # 1.5 x10^3/uL (1.0-4.8); LYMPH % 16 % (24-48); MEAN CORPUSCULAR HEMOGLOBIN 31 pg (25-35); MEAN CORPUSCULAR HGB CONC 34 g/dL (31-37); MEAN CORPUSCULAR VOLUME 92 fL (79-100); MONO % 11 % (0-9); NEUT # 6.7 x10^3uL (1.8-7.7); NEUT % 72 % (31-73); PLATELET COUNT 132 x10^3/uL (140-400); RED BLOOD COUNT 3.83 x10^6/uL (3.50-5.40); RED CELL DISTRIBUTION WIDTH 14.8 % (11.5-14.5); WHITE BLOOD COUNT 9.3 x10^3/uL (4.0-11.0)
[2017-07-10 22:25] LABS: CALCIUM 8.1 mg/dL (8.5-10.1); CREATININE 1.6 mg/dL (0.6-1.0); DIRECT BILIRUBIN 0.1 mg/dL (0.0-0.2); GFR 31.3; MAGNESIUM 2.1 mg/dL (1.8-2.4); TOTAL BILIRUBIN 0.5 mg/dL (0.2-1.0); TOTAL PROTEIN 5.5 g/dL (6.4-8.2)
[2017-07-10] MEDS ORDERED: DEXTROSE 50% 25 GM / 50ML DISP.SYRIN. IV ONE (22:45)
[2017-07-10] MEDS ORDERED: HEPARIN PF 5 UNIT/5 ML DISP.SYRIN. IV ONE (22:49)
[2017-07-11] MEDS ORDERED: HEPARIN PF 500 UNIT/5 ML DISP.SYRIN. IV ONE (01:30)
--- NOTE | 2017-07-11 08:08 | RAD ---
History: Fall today. Comparison: Right hip radiographs December 22, 2016. Findings: AP view of the pelvis. No acute fracture or dislocation is identified. Mild bilateral hip degeneration is seen. Degenerative levoconvex scoliosis is seen involving the lower lumbar spine. Impression: No acute osseous traumatic injury identified. Electronically signed by: Rajeev Spencer MD (07/11/2017 8:05 AM) [facility]
--- NOTE | 2017-07-11 08:10 | RAD ---
PA and lateral chest radiograph. History: Fall today. Comparison: December 22, 2016. Findings: Cardiomediastinal silhouette is within normal limits for size. Bilateral lung serrano appear clear without evidence of infiltrate, effusion, or pneumothorax. Right chest port and catheter can be seen. S-shaped scoliosis is seen involving the lower thoracic and visualized upper lumbar spine. Impression: 1. No acute cardiopulmonary process. Electronically signed by: Rajeev Spencer MD (07/11/2017 8:06 AM) [facility]
--- NOTE | 2017-07-11 08:14 | RAD ---
History: Fall today, history of right total knee arthroplasty. Comparison: None. Findings: AP, lateral, and oblique views of the right knee. There is a right total knee arthroplasty revision. The superior extent of the femoral stem is not included on examination. Visualized portions of the arthroplasty appear intact. No joint effusion is identified. There is evidence of some heterotopic calcification involving the mid femoral shaft. Impression: 1. Total knee arthroplasty revision is seen. 2. Proximal extent of the femoral stem is not included on examination. Dedicated radiographs of the right femur may be helpful as there is evidence of some heterotopic calcification versus atypical callus formation involving the mid femoral shaft. Electronically signed by: Rajeev Spencer MD (07/11/2017 8:11 AM) [facility]
== END 2017-07-10 23:38 | disposition home or self-care (01) ==
LOC: ER 19:49
DX: S09.90XA Unspecified injury of head, initial encounter (principal); S00.03XA Contusion of scalp, initial encounter; G89.29 Other chronic pain; M25.562 Pain in left knee; E16.2 Hypoglycemia, unspecified; D69.6 Thrombocytopenia, unspecified; E46 Unspecified protein-calorie malnutrition; R26.9 Unspecified abnormalities of gait and mobility; R79.1 Abnormal coagulation profile; I48.91 Unspecified atrial fibrillation; F41.9 Anxiety disorder, unspecified; J44.9 Chronic obstructive pulmonary disease, unspecified; F32.9 Major depressive disorder, single episode, unspecified; K21.9 Gastro-esophageal reflux disease without esophagitis; E78.00 Pure hypercholesterolemia, unspecified; E03.9 Hypothyroidism, unspecified; I10 Essential (primary) hypertension; Z86.2 Personal history of diseases of the blood and blood-forming organs and certain disorders involving the immune mechanism; Z87.440 Personal history of urinary (tract) infections; Z88.1 Allergy status to other antibiotic agents; Z88.8 Allergy status to other drugs, medicaments and biological substances; Z88.6 Allergy status to analgesic agent; W01.198A Fall on same level from slipping, tripping and stumbling with subsequent striking against other object, initial encounter; Y93.89 Activity, other specified; Y92.89 Other specified places as the place of occurrence of the external cause; Y99.8 Other external cause status
CPT/HCPCS: 36415; 70450; 71046; 72125; 72131; 72170; 73564; 80048; 80076; 80307; 81001; 82553; 82947; 83690; 83735; 83880; 84443; 84484; 85025; 85610; 85730; 93005; 96374; 99285; J7120; G0479

== ENCOUNTER 2017-08-02 14:49 | Emergency (ER) | payer MEDICARE, BC ==
[~2017-08-02] VITALS: Ht 157.5 cm; Wt 53.0 kg
[2017-08-02 14:53] VITALS: BP 96/52
--- NOTE | 2017-08-02 15:22 | PHYS DOC ---
Past History Past Medical History: A-Fib, Anemia, Anxiety, Arrhythmia, Asthma, Constipation , COPD, Depression, GERD, High Cholesterol, Hypertension, Hypothyroid, Renal Disease, UTI Past Surgical History: Appendectomy, Cholecystectomy, , Hysterectomy, Knee Replacement, Tonsillectomy Smoking: Non-smoker Alcohol Use: None Drug Use: None Adult General Chief Complaint Chief Complaint: DIZZY/LIGHT HEADED HPI HPI 77-year-old female presents with 3 day history of dizziness. Patient had 2 days of diarrhea, but none today. She denies nausea or vomiting. After the diarrhea started, the patient had feeling of lightheadedness and dizziness. It continues today. Her son checked her blood pressure and found it to be "low" so he thought she should come to the emergency room. The patient has a history of hypoglycemia in the past. She is not diabetic. She is on 2 blood pressure medications. Patient further complains of lower central abdominal pain, but states the pain is gone at this time. It has been hurting her intermittently last 2 days. She denies dysuria or urinary frequency. She denies fever or chills. Review of Systems Review of Systems Constitutional: Denies fever or chills [] Eyes: Denies change in visual acuity, redness, or eye pain [] HENT: Denies nasal congestion or sore throat [] Respiratory: Denies cough or shortness of breath [] Cardiovascular: No additional information not addressed in HPI [] GI: lower abdominal pain [] : Denies dysuria or hematuria [] Musculoskeletal: Denies back pain or joint pain [] Integument: Denies rash or skin lesions [] Neurologic: dizziness [] Endocrine: Denies polyuria or polydipsia [] All other systems were reviewed and found to be within normal limits, except as documented in this note. Allergies Allergies Allergies Coded Allergies Type Severity Reaction Last Updated Verified Tetracyclines Allergy Intermediate Unknown 03/04/15 Yes adhesive Allergy Intermediate 03/04/15 Yes amoxicillin Allergy Intermediate tingling sensation all over 10/26/15 Yes cefotaxime Allergy Intermediate 03/04/15 Yes ciprofloxacin Allergy Intermediate 12/02/16 Yes clavulanic acid Allergy Intermediate tingling sensation all over 10/26/15 Yes clindamycin Allergy Intermediate 03/04/15 Yes tramadol Allergy Intermediate 12/02/16 Yes vancomycin Allergy Intermediate 12/27/15 Yes Physical Exam Physical Exam Constitutional: Well developed, well nourished, no acute distress, non-toxic appearance. [] HENT: Normocephalic, atraumatic, bilateral external ears normal, oropharynx moist, no oral exudates, nose normal. [] Eyes: PERRLA, EOMI, conjunctiva normal, no discharge. [] Neck: Normal range of motion, no tenderness, supple, no stridor. [] Cardiovascular:Heart rate regular rhythm, no murmur [] Lungs & Thorax: Bilateral breath sounds clear to auscultation [] Abdomen: Bowel sounds normal, soft, no tenderness, no masses, no pulsatile masses. [] Skin: Warm, dry, no erythema, no rash. [] Back: No tenderness, no CVA tenderness. [] Extremities: No tenderness, no cyanosis, no clubbing, ROM intact, no edema. [] Neurologic: Alert and oriented X 3, normal motor function, normal sensory function, no focal deficits noted. [] Psychologic: Affect normal, judgement normal, mood normal. [] EKG EKG Normal sinus rhythm, rate 72, left axis deviation, no ST elevations or depressions. Low voltage.[] Radiology/Procedures Radiology/Procedures CHEST PA LATERAL History: weakness with dizziness x 3 days Comparison: July 10, 2017 Findings: 2 views of the chest are submitted. There is right port catheter with its tip in the superior vena cava. Heart size is stable, within normal limits. There is no lobar consolidation, pleural fluid, pneumothorax. There is S-shaped scoliosis of the thoracolumbar spine. Impression: 1. There is no radiographic evidence of acute cardiopulmonary disease. Electronically signed by: Vidal Delgado MD (08/02/2017 3:38 PM) [facility][] Course & Med Decision Making Course & Med Decision Making Pertinent Labs and Imaging studies reviewed. (See chart for details) Patient's chest x-ray is unremarkable. Troponin is negative. Her labs are significant for an elevated creatinine of 3.0. Her most recent previous was 1.6. After talking to the patient, it turns out her baseline creatinine at this time is 3.0-3.3 according to her ux interaction designer. I believe the patient is dehydrated. This is likely the cause of her dizziness and hypotension. She is still getting her fluids. We will do orthostatics after that. Her orthostatics were within normal limits. The patient states feeling much better at this time. She does not feel dizzy when she stands up. She is stable for discharge. [] Dragon Disclaimer Dragon Disclaimer This electronic medical record was generated, in whole or in part, using a voice recognition dictation system. Departure Departure: Referrals: ZAIDA BOBBY MD (PCP) JANNET ALONSO DO August 02, 2017 15:22
[2017-08-02 15:38] LABS: BASO # 0.1 x10^3/uL (0.0-0.2); BASO % 1 % (0-3); EOS # 1.7 x10^3/uL (0.0-0.7); EOS % 15 % (0-3); HEMATOCRIT 39.5 % (36.0-47.0); LYMPH # 2.5 x10^3/uL (1.0-4.8); LYMPH % 22 % (24-48); MEAN CORPUSCULAR HEMOGLOBIN 30 pg (25-35); MEAN CORPUSCULAR HGB CONC 33 g/dL (31-37); MEAN CORPUSCULAR VOLUME 93 fL (79-100); MONO # 1.1 x10^3/uL (0.0-1.1); MONO % 10 % (0-9); NEUT # 6.1 x10^3uL (1.8-7.7); NEUT % 53 % (31-73); PLATELET COUNT 149 x10^3/uL (140-400); RED BLOOD COUNT 4.28 x10^6/uL (3.50-5.40); RED CELL DISTRIBUTION WIDTH 15.2 % (11.5-14.5); WHITE BLOOD COUNT 11.6 x10^3/uL (4.0-11.0)
--- NOTE | 2017-08-02 15:41 | RAD ---
CHEST PA LATERAL History: weakness with dizziness x 3 days Comparison: July 10, 2017 Findings: 2 views of the chest are submitted. There is right port catheter with its tip in the superior vena cava. Heart size is stable, within normal limits. There is no lobar consolidation, pleural fluid, pneumothorax. There is S-shaped scoliosis of the thoracolumbar spine. Impression: 1. There is no radiographic evidence of acute cardiopulmonary disease. Electronically signed by: Vidal Delgado MD (08/02/2017 3:38 PM) [facility]
--- NOTE | 2017-08-02 15:54 | EKG ---
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
[2017-08-02 15:57] LABS: CALCIUM 8.1 mg/dL (8.5-10.1); GFR 15.2; POTASSIUM 5.1 mmol/L (3.5-5.1); TOTAL BILIRUBIN 0.5 mg/dL (0.2-1.0); TOTAL PROTEIN 5.9 g/dL (6.4-8.2)
[2017-08-02] MEDS ORDERED: IV NORMAL SALINE 1,000ML 1,000 ML IV ONE (16:00)
[2017-08-02] MEDS ORDERED: HEPARIN PF 500 UNIT/5 ML DISP.SYRIN. IV ONE (17:40)
== END 2017-08-02 17:51 | disposition home or self-care (01) ==
LOC: ER 14:49
DX: R42 Dizziness and giddiness (principal); R19.7 Diarrhea, unspecified; R10.30 Lower abdominal pain, unspecified; R94.4 Abnormal results of kidney function studies; I48.91 Unspecified atrial fibrillation; F41.9 Anxiety disorder, unspecified; J44.9 Chronic obstructive pulmonary disease, unspecified; K21.9 Gastro-esophageal reflux disease without esophagitis; E78.00 Pure hypercholesterolemia, unspecified; I10 Essential (primary) hypertension; E03.9 Hypothyroidism, unspecified; F32.9 Major depressive disorder, single episode, unspecified; Z87.440 Personal history of urinary (tract) infections; Z86.2 Personal history of diseases of the blood and blood-forming organs and certain disorders involving the immune mechanism; Z88.1 Allergy status to other antibiotic agents; Z88.8 Allergy status to other drugs, medicaments and biological substances; Z88.6 Allergy status to analgesic agent
CPT/HCPCS: 36415; 71046; 80053; 83880; 84484; 85025; 93005; 96360; 96361; 99285-25; J7030

== ENCOUNTER → 2017-10-16 | Day surgery (SDC) | payer MEDICARE, BC ==
[~2017-10-16] MED LIST changes: +ALBU6.7H IH; +ALBUTEROL SULFATE 2.5 MG/3 ML NEBU. NEB PRN; +ATROPINE 0.5 MG/5 ML DISP.SYRIN. IV PRN; +HYDR-2758 PO; -IPRA3AMP NEB; +IPRA3AMP29 NEB; +IV NORMAL SALINE 1,000ML 1,000 ML IV SCH; +IV RINGERS SOLUTION,LACTATED 1,000 ML IV SCH; +LIDOCAINE 2% PF Vial for OR 5 ML VIAL. ONE; +NALOXONE 0.4 MG/ML VIAL. IV PRN; +ONDANSETRON PF 4 MG/2 ML VIAL. IV PRN; +PROPOFOL 10,000 MCG/ML (20ML) VIAL IV ONE; +PROPOFOL 20 ML IV ONE; +TIOT18CA IH; +diphenhydrAMINE 50 MG/ML VIAL IV PRN
[2017-10-16 12:05] VITALS: BP 127/66
== END | disposition home or self-care (01) ==
LOC: SURG 10:36
PROVIDERS: ATTEND Internal Medicine Gastroenterology
DX: K22.2 Esophageal obstruction (principal); K25.9 Gastric ulcer, unspecified as acute or chronic, without hemorrhage or perforation; K22.8 Other specified diseases of esophagus; I10 Essential (primary) hypertension; I25.10 Atherosclerotic heart disease of native coronary artery without angina pectoris; K21.9 Gastro-esophageal reflux disease without esophagitis; Z88.1 Allergy status to other antibiotic agents; Z88.5 Allergy status to narcotic agent; Z88.8 Allergy status to other drugs, medicaments and biological substances; E78.00 Pure hypercholesterolemia, unspecified; Z87.01 Personal history of pneumonia (recurrent); Z90.710 Acquired absence of both cervix and uterus; Z87.440 Personal history of urinary (tract) infections; M19.90 Unspecified osteoarthritis, unspecified site; F32.9 Major depressive disorder, single episode, unspecified; E03.9 Hypothyroidism, unspecified; F41.9 Anxiety disorder, unspecified; J44.9 Chronic obstructive pulmonary disease, unspecified; I48.91 Unspecified atrial fibrillation; Z90.49 Acquired absence of other specified parts of digestive tract; Z79.899 Other long term (current) drug therapy; Z82.3 Family history of stroke; Z83.3 Family history of diabetes mellitus; Z82.49 Family history of ischemic heart disease and other diseases of the circulatory system; Z88.6 Allergy status to analgesic agent
CPT/HCPCS: 43239; 43450; 88305; 88342; J2704; J2001; J7030

== ENCOUNTER 2018-01-17 17:19 | Inpatient (IN) | payer MEDICARE, BC ==
[~2018-01-17] VITALS: Ht 157.5 cm; Wt 64.9 kg
[~2018-01-17 17:19] MED LIST changes: -ALBUTEROL SULFATE 2.5 MG/3 ML NEBU. NEB PRN; -ATROPINE 0.5 MG/5 ML DISP.SYRIN. IV PRN; -IV NORMAL SALINE 1,000ML 1,000 ML IV SCH; -IV RINGERS SOLUTION,LACTATED 1,000 ML IV SCH; -LIDOCAINE 2% PF Vial for OR 5 ML VIAL. ONE; -NALOXONE 0.4 MG/ML VIAL. IV PRN; -ONDANSETRON PF 4 MG/2 ML VIAL. IV PRN; -PROPOFOL 10,000 MCG/ML (20ML) VIAL IV ONE; -PROPOFOL 20 ML IV ONE; -diphenhydrAMINE 50 MG/ML VIAL IV PRN
--- NOTE | 2018-01-17 18:02 | EKG ---
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
[2018-01-17 18:10] LABS: BACTERIA,URINE FEW /HPF (0-FEW); BILIRUBIN,URINE NEG (NEG); CLARITY,URINE CLEAR; COLOR,URINE STRAW; GLUCOSE,URINE NEG (NEG); NITRITE,URINE NEG (NEG); RBC,URINE OCC /HPF (0-2); SQUAMOUS EPITHELIAL CELL,UR MOD /LPF; UROBILINOGEN,URINE 0.2 mg/dL (0.2 mg/dL); WBC,URINE OCC /HPF (0-4); YEAST,URINE PRESENT /HPF
[2018-01-17] MEDS ORDERED: MECLIZINE 12.5 MG TABLET. PO STA (18:23)
--- NOTE | 2018-01-17 18:23 | PHYS DOC ---
Past History Past Medical History: A-Fib, Anemia, Anxiety, Arrhythmia, Asthma, Constipation , COPD, Depression, GERD, High Cholesterol, Hypertension, Hypothyroid, Renal Disease, UTI Past Surgical History: Appendectomy, Cholecystectomy, , Hysterectomy, Knee Replacement, Tonsillectomy Smoking: Non-smoker Alcohol Use: None Drug Use: None Adult General Chief Complaint Chief Complaint: WEAKNESS/GENERALIZED HPI HPI Is a 77-year-old female who presents with complaint of generalized weakness and dizziness. Patient states that symptoms have progressively been worsening throughout the day today. She states that whenever she tries to sit up, she gets very dizzy and feels like she is off balance and everything seems to span. She denies any nausea or vomiting. Patient states that she has had similar symptoms in the past and states that it was attributed to hyponatremia. She denies any chest pain or shortness of breath. She indicates that she has had no pain at all. She denies fever or urinary discomfort. She also denies any headache. Patient states that symptoms are worsened if she tries to sit up or stand up. She states that they are improved when she just lies down. Review of Systems Review of Systems Constitutional: Denies fever or chills [] Eyes: Denies change in visual acuity, redness, or eye pain [] Respiratory: Denies cough or shortness of breath [] Cardiovascular: No additional information not addressed in HPI [] GI: Denies abdominal pain, nausea, vomiting or diarrhea [] : Denies dysuria or hematuria [] Neurologic: Denies headache, focal weakness or sensory changes. Complains of generalized weakness and dizziness. [] All other systems were reviewed and found to be within normal limits, except as documented in this note. Allergies Allergies Allergies Coded Allergies Type Severity Reaction Last Updated Verified Tetracyclines Allergy Intermediate Unknown 03/04/15 Yes adhesive Allergy Intermediate 03/04/15 Yes amoxicillin Allergy Intermediate tingling sensation all over 10/26/15 Yes cefotaxime Allergy Intermediate 03/04/15 Yes ciprofloxacin Allergy Intermediate 12/02/16 Yes clavulanic acid Allergy Intermediate tingling sensation all over 10/26/15 Yes clindamycin Allergy Intermediate 03/04/15 Yes tramadol Allergy Intermediate 12/02/16 Yes vancomycin Allergy Intermediate 03/04/15 Yes Physical Exam Physical Exam Constitutional: Well developed, well nourished, no acute distress, non-toxic appearance. [] HENT: Normocephalic, atraumatic, bilateral external ears normal, oropharynx moist, no oral exudates, nose normal. [] Eyes: PERRLA, EOMI, conjunctiva normal, no discharge. [] Neck: Normal range of motion, no tenderness, supple, no stridor. [] Cardiovascular:Heart rate regular rhythm [] Lungs & Thorax: Bilateral breath sounds clear to auscultation [] Abdomen: Bowel sounds normal, soft, no tenderness. [] Skin: Warm, dry, no erythema, no rash. [] Extremities: No tenderness, no cyanosis, no clubbing, ROM intact, no edema. [] Neurologic: Alert and oriented X 3, normal motor function, normal sensory function, no focal deficits noted. [] Current Patient Data Lab Results Laboratory Tests Test 01/17/18 17:24 Urine Collection Type Unknown Urine Color Straw Urine Clarity Clear Urine pH 5.5 Urine Specific Ione 1.015 Urine Protein Neg (NEG-TRACE) Urine Glucose (UA) Neg mg/dL (NEG) Urine Ketones (Stick) Neg mg/dL (NEG) Urine Blood Neg (NEG) Urine Nitrite Neg (NEG) Urine Bilirubin Neg (NEG) Urine Urobilinogen Dipstick 0.2 mg/dL (0.2 mg/dL) Urine Leukocyte Esterase Neg (NEG) Urine RBC Occ /HPF (0-2) Urine WBC Occ /HPF (0-4) Urine Squamous Epithelial Cells Mod /LPF Urine Bacteria Few /HPF (0-FEW) Urine Yeast Present /HPF EKG EKG EKG demonstrates normal sinus rhythm with a rate of 79.[] Radiology/Procedures Radiology/Procedures [] Course & Med Decision Making Course & Med Decision Making Pertinent Labs and Imaging studies reviewed. (See chart for details) [] Dragon Disclaimer Dragon Disclaimer This electronic medical record was generated, in whole or in part, using a voice recognition dictation system. Departure Departure: Impression: Primary Impression: Yrcwk-tz-[id number] kidney injury Additional Impression: Benign positional vertigo Disposition: ADMITTED INPATIENT Condition: IMPROVED Referrals: ZAIDA BOBBY MD (PCP) Problem Qualifiers Primary Impression: [id number]-[id number] kidney injury Acute renal failure type: unspecified Chronic kidney disease stage: unspecified stage Qualified Codes: N17.9 - Acute kidney failure, unspecified; N18.9 - Chronic kidney disease, unspecified Additional Impression: Benign positional vertigo Laterality: unspecified laterality Qualified Codes: H81.10 - Benign paroxysmal vertigo, unspecified ear DEIDRE HENSLEY Jr. DO Jan 17, 2018 18:23
--- NOTE | 2018-01-17 18:26 | RAD ---
Single view chest 01/17/2018 CLINICAL INDICATION: Weakness and shortness of breath. COMPARISON: Two-view chest 08/02/2017 FINDINGS: Cardiac and mediastinal silhouettes unremarkable. Right subclavian chest port is in similar position. No pleural effusion, pneumothorax or focal consolidation. Minimal bibasilar atelectasis or scarring. IMPRESSION: No acute cardiopulmonary abnormality. Electronically signed by: Jose Alejandro Camp MD (01/17/2018 6:23 PM) [facility]
[2018-01-17 18:53] LABS: BASO % 0 % (0-3); EOS % 0 % (0-3); HEMATOCRIT 36.3 % (36.0-47.0); HEMOGLOBIN 11.9 g/dL (12.0-15.5); LYMPH % 16 % (24-48); MEAN CORPUSCULAR HEMOGLOBIN 30 pg (25-35); MEAN CORPUSCULAR HGB CONC 33 g/dL (31-37); MEAN CORPUSCULAR VOLUME 92 fL (79-100); MONO # 0.5 x10^3/uL (0.0-1.1); MONO % 9 % (0-9); NEUT # 4.5 x10^3uL (1.8-7.7); NEUT % 74 % (31-73); PLATELET COUNT 174 x10^3/uL (140-400); RED BLOOD COUNT 3.95 x10^6/uL (3.50-5.40); RED CELL DISTRIBUTION WIDTH 13.9 % (11.5-14.5)
[2018-01-17 18:58] LABS: ALBUMIN 2.9 g/dL (3.4-5.0); CALCIUM 8.1 mg/dL (8.5-10.1); CREATININE 2.8 mg/dL (0.6-1.0); GFR 16.4; POTASSIUM 4.3 mmol/L (3.5-5.1); TOTAL BILIRUBIN 0.3 mg/dL (0.2-1.0); TOTAL PROTEIN 5.8 g/dL (6.4-8.2)
[2018-01-17] MEDS ORDERED: MECLIZINE 12.5 MG TABLET. PO PRN (20:30)
[2018-01-17] MEDS ORDERED: IV NORMAL SALINE 1,000ML 1,000 ML IV ONE (20:30)
[2018-01-17] MEDS ORDERED: ONDANSETRON PF 4 MG/2 ML VIAL. IV PRN (20:30)
[2018-01-17 21:38] VITALS: BP 121/71
[2018-01-17] MEDS: IV NORMAL SALINE 1,000ML 1,000 ML IV SCH (22:00)
[2018-01-17] MEDS ORDERED: FURO20TA3 PO (22:24)
[2018-01-17 23:09] VITALS: BP 125/75
[2018-01-18] VITALS (7 sets, daily range): BP systolic 117–129; BP diastolic 55–84
[2018-01-18 05:56] LABS: BASO % 1 % (0-3); EOS # 0.2 x10^3/uL (0.0-0.7); EOS % 3 % (0-3); HEMATOCRIT 34.1 % (36.0-47.0); HEMOGLOBIN 11.2 g/dL (12.0-15.5); LYMPH # 2.6 x10^3/uL (1.0-4.8); LYMPH % 37 % (24-48); MEAN CORPUSCULAR HEMOGLOBIN 31 pg (25-35); MEAN CORPUSCULAR HGB CONC 33 g/dL (31-37); MEAN CORPUSCULAR VOLUME 93 fL (79-100); MONO # 0.8 x10^3/uL (0.0-1.1); MONO % 11 % (0-9); NEUT # 3.5 x10^3uL (1.8-7.7); NEUT % 49 % (31-73); PLATELET COUNT 162 x10^3/uL (140-400); RED BLOOD COUNT 3.66 x10^6/uL (3.50-5.40); RED CELL DISTRIBUTION WIDTH 13.9 % (11.5-14.5); WHITE BLOOD COUNT 7.2 x10^3/uL (4.0-11.0)
[2018-01-18 05:59] LABS: CALCIUM 7.6 mg/dL (8.5-10.1); CREATININE 2.1 mg/dL (0.6-1.0); GFR 22.9; POTASSIUM 3.6 mmol/L (3.5-5.1)
[2018-01-18] MEDS: LEVOTHYROXINE 75 MCG TABLET PO SCH (08:48)
[2018-01-18] MEDS: IV NORMAL SALINE 1,000ML 1,000 ML IV SCH ×2 (08:49→16:09)
[2018-01-18] MEDS ORDERED: NON FORMULARY ITEM (Tiotropium Bromide (Spiriva) 18 MCG) IH PRN (09:30)
[2018-01-18] MEDS ORDERED: ALBUTEROL SULFATE 8GM INHALER. IH PRN (09:30)
[2018-01-18] MEDS ORDERED: MECLIZINE 12.5 MG TABLET. PO PRN ×2 (09:30→13:45)
[2018-01-18] MEDS ORDERED: NON FORMULARY ITEM (Fluticasone/Salmeterol (Advair 500-50 Diskus) 1 PUFF) IH SCH (09:30)
[2018-01-18] MEDS ORDERED: ALBUTEROL SULFATE 2.5 MG/3 ML NEBU. NEB PRN (10:00)
[2018-01-18] MEDS ORDERED: IPRATRPIUM/ALBUTEROL 0.5/2.5MG 3 ML NEBU. NEB PRN (10:00)
[2018-01-18] MEDS ORDERED: BUDESONIDE 0.5 MG/2 ML NEBU NEB PRN (10:00)
--- NOTE | 2018-01-18 10:02 | HP ---
ADMIT DATE: 01/17/2018 HISTORY OF PRESENT ILLNESS: The patient is a 77-year-old female patient who came to the Emergency Room with a complaint of generalized weakness and dizziness. The patient stated that her symptoms have progressively been worsening throughout the day yesterday, she states that whenever she tries to sit up, she gets very dizzy and feels like she is off balance and everything seems to spin. She denied any nausea or vomiting. The patient states that she has had similar symptoms in the past and stated that was attributed to hyponatremia. She denied any chest pain or shortness of breath. She indicated that she has had no pain at all. She denied any fever or any discomfort. Denied any headache. Her symptoms are worsened when she tries to sit up or stand up, they are improved when she is lying down. She was evaluated in the Emergency Room and her lab work showed that she was dehydrated and her creatinine has dramatically risen from a baseline of 1.3 to 2.8 and was admitted with diagnosis of acute on chronic kidney injury, transpired that she is taking Lasix 20 mg daily. PAST MEDICAL HISTORY: Significant for hypertension, chronic bilateral lower extremity edema, COPD. PAST SURGICAL HISTORY: Significant for cholecystectomy, x 3, total knee replacement, hysterectomy, breast reduction surgery, broken right leg 2016, and sinus surgery x 3. FAMILY HISTORY: Unremarkable. SOCIAL HISTORY: She is , lives alone. She does not smoke, drink alcohol, or use any drugs. REVIEW OF SYSTEMS: As per history of present illness. PHYSICAL EXAMINATION: GENERAL: On arrival to the Emergency Room, the patient looked well and was clearly in no apparent respiratory distress, pale, but no jaundice, cyanosis, or thyromegaly. No jugular venous distention. No limb edema. VITAL SIGNS: Her heart rate was 77, blood pressure was 142/83, temperature was 98, respiratory rate was 16, and oxygen saturation was 98% on room air. HEAD, EYES, EAR, NOSE, AND THROAT: Showed normocephalic, atraumatic. NECK: Supple. HEART: Showed normal first and second heart sounds with no gallop, rub, or murmur. CHEST: Clear to auscultation. No crepitation or rhonchi. ABDOMEN: Distended, soft, nontender. No guarding or rigidity. No organomegaly. All hernial orifices intact. Bowel sounds normal. NEUROLOGIC: She is awake, alert, responding appropriately. All cranial nerves intact. She moves extremities without difficulty; however, she stated that she feels dizzy whenever she sits or stands, but feeling fine whenever she is lying flat. LABORATORY DATA: Showed a white cell count of 6000, hemoglobin 12, hematocrit 36, MCV 92, and platelet count of 174,000 with normal manual differential. Her chemistry showed a serum sodium 137, potassium 4.3, chloride 103, bicarbonate 26, anion gap of 8, BUN 33, creatinine 2.8, estimated GFR was 16 mL per minute. Her glucose was 121, calcium was 8.1, magnesium was 2. Total bilirubin, AST, ALT, alkaline phosphatase were normal. Her total protein was 5.8, albumin 2.9. Urinalysis was essentially unremarkable. Her chest x-ray showed that the cardiac and mediastinal silhouette unremarkable. Right subclavian chest port is in similar position. No pleural effusion, pneumothorax, or focal consolidation. Minimal bibasilar atelectasis or scarring . The patient has no acute cardiopulmonary abnormality. ALLERGIES: She is allergic to TETRACYCLINE, ADHESIVE, AMOXICILLIN, , CIPROFLOXACIN, CLAVULANIC ACID, CLINDAMYCIN, TRAMADOL and VANCOMYCIN. HOME MEDICATIONS: Consist of ipratropium bromide, albuterol sulfate by nebulizer 4 times a day, tiotropium bromide for Spiriva inhaler albuterol sulfate 2 puffs 3 times a day, escitalopram oxalate 20 mg once a day, potassium chloride 20 mEq 3 times a day. She is on furosemide 20 mg daily, Advair Diskus 500/50 one puff twice a day, Montelukast 10 mg at bedtime. She is on Daliresp 500 mcg once a day, meclizine 12.5 mg, she takes 2 tablets 3 times a day; estradiol 1 mg daily, levothyroxine sodium 75 mcg once a day, Lidoderm patch 1 patch topically daily for pain, ascorbic acid 500 mg once a day, and vitamin D3 2000 international unit once a day. IMPRESSION: In summary, this is a 77-year-old female patient who was admitted with a complaint of weakness, dizziness, basically most likely due to over diuresis. She has acute on chronic kidney injury with creatinine risen from 1.3 to 2.8. Plan is to hold her Lasix. Continue with IV fluid. We will continue all her medication except the Lasix, check her orthostatics. Continue with IV fluid and decide on further management accordingly. JANE MORILLO MD DR: CONG/dilip JOB#: [id number] / [id number]
[2018-01-18] MEDS: ASCORBIC ACID 500 MG TABLET PO SCH (10:58)
[2018-01-18] MEDS: CITALOPRAM 20 MG TABLET. PO SCH (10:58)
[2018-01-18] MEDS: CHOLECALCIFEROL (VITAMIN D3) 1,000 UNIT TABLET PO SCH (10:58)
[2018-01-18] MEDS: ROFLUMILAST 500 MCG TABLET PO SCH (10:59)
[2018-01-18] MEDS: ESTRADIOL 1 MG TABLET PO SCH (11:02)
[2018-01-18] MEDS: LIDOCAINE (700MG/PATCH) PATCH. TD SCH (11:02)
--- NOTE | 2018-01-18 13:07 | PN ---
DATE: 01/18/2018 SUBJECTIVE: The patient is resting slightly propped up in bed, in no apparent distress. She is feeling generally better. Denied any chest pain, no shortness of breath. Denied any further episodes of dizziness or lightheadedness. OBJECTIVE: GENERAL: When I examined her, she was pale, no jaundice, cyanosis, lymphadenopathy or thyromegaly. No jugular venous distension. No limb edema. VITAL SIGNS: Her heart rate was 77, blood pressure 126/55, temperature was 97.7, respiratory rate was 18 and oxygen saturation was 97% on room air. HEAD, EYES, EARS, NOSE AND THROAT: Showed normocephalic, atraumatic. NECK: Supple. HEART: Showed normal first and second heart sounds. No gallop, rub or murmur. CHEST: Clear to auscultation. No crepitation or rhonchi. ABDOMEN: Slightly distended, soft, nontender. NEUROLOGIC: She was awake, alert, responding appropriately. All cranial nerves intact. She moves extremities without difficulty. Her intake over the last 24 hours was 1100, no output was recorded. LABORATORY DATA: Her lab work this morning showed a white cell count of 7200, hemoglobin 11, hematocrit 34, MCV 93, and platelet count of 162,000. Her chemistry showed a serum sodium of 142, potassium 3.6, chloride 108, bicarbonate 24, anion gap of 10, BUN 27, creatinine 2.1, estimated GFR was 22 mL per minute. Her glucose was 75, calcium was 7.6, magnesium was 2. ASSESSMENT: Acute on chronic kidney injury. Other medical problems include COPD, hypertension. PLAN: Continue with IV fluid, hold her diuretics. Continue with other medication and repeat her lab works tomorrow. Check her orthostatics and decide on further management accordingly. JANE MORILLO MD DR: CONG/dilip JOB#: [id number] / [id number]
[2018-01-18] MEDS ORDERED: MONTELUKAST 10 MG TABLET. PO SCH (21:00)
[2018-01-19] MEDS: IV NORMAL SALINE 1,000ML 1,000 ML IV SCH ×2 (00:15→08:15)
[2018-01-19] MEDS: LEVOTHYROXINE 75 MCG TABLET PO SCH (04:56)
[2018-01-19 05:02] VITALS: BP 133/85
[2018-01-19 05:23] LABS: CALCIUM 7.4 mg/dL (8.5-10.1); CREATININE 1.5 mg/dL (0.6-1.0); GFR 33.8; MAGNESIUM 1.6 mg/dL (1.8-2.4); POTASSIUM 3.5 mmol/L (3.5-5.1)
[2018-01-19] MEDS: ESTRADIOL 1 MG TABLET PO SCH (09:04)
[2018-01-19] MEDS: LIDOCAINE (700MG/PATCH) PATCH. TD SCH (09:04)
[2018-01-19] MEDS: CITALOPRAM 20 MG TABLET. PO SCH (09:04)
[2018-01-19] MEDS: CHOLECALCIFEROL (VITAMIN D3) 1,000 UNIT TABLET PO SCH (09:04)
[2018-01-19] MEDS: ASCORBIC ACID 500 MG TABLET PO SCH (09:05)
[2018-01-19] MEDS: ROFLUMILAST 500 MCG TABLET PO SCH (09:06)
[2018-01-19] MEDS ORDERED: POTA20TA4 PO (09:26)
[2018-01-19] MEDS ORDERED: FURO-69 PO (09:26)
[2018-01-19] MEDS ORDERED: POTASSIUM CHLORIDE 10 MEQ TABLET.ER. PO SCH (10:00)
--- NOTE | 2018-01-19 13:54 | DS ---
DATE OF DISCHARGE: 01/19/2018 HISTORY OF PRESENT ILLNESS: The patient is a 77-year-old female patient who came to the Emergency Room complaining of generalized weakness. She feels dizzy whenever she tries to stand, she is off balance and everything seems to be spinning. She was evaluated in the Emergency Room, was found to have acute on chronic kidney injury. Her creatinine has dramatically risen from 1.3-2.8 and was admitted with diagnosis of acute on chronic kidney injury and it transpired that she has been taking Lasix on a daily basis. We did start her on IV fluid and her kidney function has steadily improved. Her creatinine came down from 2.8-2.5. Her baseline creatinine is 1.3-1.4 and she was given advice not to take Lasix every day, but that perhaps twice a week. She has to weigh herself and if she gains more than 3-4 pounds, she can take one tablet together with potassium. PHYSICAL EXAMINATION: GENERAL: When I examined her today, she looked well and was clearly in no apparent respiratory distress. No pallor, jaundice, cyanosis, lymphadenopathy or thyromegaly. No jugular venous distension. No limb edema. VITAL SIGNS: Her heart rate was 75, blood pressure was 133/85, temperature was 97.9, respiratory rate was 18 and oxygen saturation was 96%. HEAD, EYES, EARS, NOSE AND THROAT: Normocephalic, atraumatic. NECK: Supple. HEART: Showed normal first and second heart sounds with no gallop, rub or murmur. CHEST: Clear to auscultation. No crepitation or rhonchi. ABDOMEN: Distended, soft, nontender. No guarding or rigidity. No organomegaly. Hernial orifice intact. Bowel sounds normal. NEUROLOGIC: She was awake, alert, responding appropriately. All cranial nerves intact. EXTREMITIES: She moves extremities without difficulty. She ambulates without assistance or assistive devices. Her intake was 3870 and no output was recorded. LABORATORY DATA: This morning showed her serum sodium to be 140, potassium 3.5, chloride 109, bicarbonate 23, anion gap of 8, BUN 18, creatinine 1.5, estimated GFR was 34 mL per minute. Her glucose was 74, calcium was 7.64, and magnesium was 1.6. White cell count was 7200, hemoglobin 11, hematocrit 34, MCV 93, and platelet count of 162. DISCHARGE MEDICATIONS: She was discharged home to continue on following medication: Furosemide 20 mg twice a week as needed, if gains more than 3 pounds; potassium chloride 20 mEq once a day twice a week with Lasix, albuterol sulfate 2 puffs 3 times a day, ascorbic acid, vitamin C 500 mg daily, cholecalciferol 2000 International Unit once a day, escitalopram oxalate 20 mg once a day, estradiol 1 mg once a day, Advair Diskus 500/50 one puff twice a day, levothyroxine sodium 75 mcg once a day, DuoNeb 0.5-2.5 mg 3 mL by nebulizer 4 times a day, Lidoderm patch 1 patch topically on for 12 hours and off for 12 hours, meclizine 12.5 mg, she takes 2 tablets 3 times a day, Singulair 10 mg at bedtime, Daliresp 500 mcg tablet once a day and Spiriva HandiHaler 1 inhalation once a day. FINAL DISCHARGE DIAGNOSES: 1. Acute on chronic kidney injury. 2. Hypertension. 3. Hypothyroidism. 4. Chronic obstructive pulmonary disease. JANE MORILLO MD DR: CONG/dilip JOB#: [id number] / [id number]
== END 2018-01-19 10:24 | disposition home or self-care (01) | DRG 683 ==
LOC: ER 17:19 → 1 SOUTH 20:20
PROVIDERS: ADMIT Neuromusculoskeletal Medicine & OMM; ATTEND Neuromusculoskeletal Medicine & OMM
DX: N17.9 Acute kidney failure, unspecified (principal); E87.1 Hypo-osmolality and hyponatremia; E03.9 Hypothyroidism, unspecified; E78.00 Pure hypercholesterolemia, unspecified; E86.0 Dehydration; H81.10 Benign paroxysmal vertigo, unspecified ear; I12.9 Hypertensive chronic kidney disease with stage 1 through stage 4 chronic kidney disease, or unspecified chronic kidney disease; I48.91 Unspecified atrial fibrillation; J44.9 Chronic obstructive pulmonary disease, unspecified; K21.9 Gastro-esophageal reflux disease without esophagitis; N18.9 Chronic kidney disease, unspecified; F32.9 Major depressive disorder, single episode, unspecified; T50.2X5A Adverse effect of carbonic-anhydrase inhibitors, benzothiadiazides and other diuretics, initial encounter; Z90.710 Acquired absence of both cervix and uterus; Z96.659 Presence of unspecified artificial knee joint; Z90.49 Acquired absence of other specified parts of digestive tract; F41.9 Anxiety disorder, unspecified; Z87.440 Personal history of urinary (tract) infections; Z88.6 Allergy status to analgesic agent; Z88.1 Allergy status to other antibiotic agents; Z88.8 Allergy status to other drugs, medicaments and biological substances; Z91.048 Other nonmedicinal substance allergy status; Y92.89 Other specified places as the place of occurrence of the external cause
CPT/HCPCS: 36415; 71045; 80048; 80053; 81001; 83735; 85025; 93005; 96360; J8597; 99285-25; J7030

== ENCOUNTER → 2018-04-16 | Day surgery (SDC) | payer MEDICARE, BC ==
[~2018-04-16] MED LIST changes: +ALBU2.5V8 IH; -ALBU6.7H IH; -ALBU8.5H8 IH; -ALBU90AE IH; +ALBUTEROL SULFATE 2.5 MG/3 ML NEBU. NEB PRN; +FURO20TA3 PO; +HYDR-2155 PO; -HYDR-2758 PO; -HYDR-2766 PO; +HYDR-2769 PO; +IPRATRPIUM/ALBUTEROL 0.5/2.5MG 3 ML NEBU. NEB PRN; +IV NORMAL SALINE 1,000ML 1,000 ML IV SCH; +LIDOCAINE 2% PF Vial for OR 5 ML VIAL. ONE; +ONDANSETRON PF 4 MG/2 ML VIAL. IV PRN; -OXYC-323 PO; +OXYC1TAB15 PO; +PANT40TA3 PO; -POLY255P PO; +POLY255P11 PO; +POTA20TA4 PO; +PROAIR RESPICL90 MCG IH; +PROPOFOL 10,000 MCG/ML (20ML) VIAL IV ONE; +PROPOFOL 40 ML IV ONE; +RACEPINEPHRINE 2.25% 0.5 ML NEBU. NEB PRN
[2018-04-16 11:38] LABS: HEMATOCRIT 32.6 % (36.0-47.0); HEMOGLOBIN 10.9 g/dL (12.0-15.5)
[2018-04-16 13:22] VITALS: BP 134/70
--- NOTE | 2018-04-20 16:07 | PATHOLOGY ---
[facility] Accession Number: [id number] . 01 Material submitted: . PART A: DESCENDING COLON POLYP PART B: ASCENDING COLON POLYP X4 . 01 Clinical history: . History of colon polyps, anemia . 02 Diagnosis: A. Colon biopsy, descending colon polyp: - Tubular adenoma. . B. Colon biopsies, ascending colon polyp: - Tubular adenoma. - Prominent mucosal fold. . (JPM:consulting group analyst; 04/20/2018) MBR/04/20/2018 . 02 Comment: There is no high-grade dysplasia or evidence of malignancy. (JPM:consulting group analyst; 04/20/2018) . 02 Electronically signed: . Ramez Garza MD, Pathologist NPI- [id number] . 01 Gross description: . A. The specimen is received in formalin, labeled "Yuridia Dayan, descending colon polyp". Received is a segment of pale jacobs soft tissue measuring 0.3 cm in maximum dimensions. The specimen is submitted entirely in cassette A1. . B. The specimen is received in formalin, labeled "Yuridia Dayan, ascending colon polyp". Received are two segments of pale jacobs soft tissue measuring 0.3 and 0.4 cm in maximum dimensions. The specimen is submitted entirely in cassette B1. (CAA; 04/19/2018) QAC/QAC . 02 Pathologist provided ICD-10: D12.4, D12.2 . 02 CPT . 990556, 917466 Specimen Comment: A courtesy copy of this report has been sent to Specimen Comment: [phone], . Specimen Comment: Report sent to / DR BOBBY Specimen Comment: A duplicate report has been generated due to demographic updates. Performed at: 01 [facility] [address], [place] [id number] MD Rahul Penn MD Phone: [phone] Performed at: 02 [facility] [address] [place] [id number] MD Ramez Garza MD Phone: [phone]
== END | disposition home or self-care (01) ==
LOC: SURG 10:17
PROVIDERS: ATTEND Internal Medicine Gastroenterology
DX: D12.4 Benign neoplasm of descending colon (principal); D12.2 Benign neoplasm of ascending colon; K57.30 Diverticulosis of large intestine without perforation or abscess without bleeding; K64.1 Second degree hemorrhoids; I10 Essential (primary) hypertension; K21.9 Gastro-esophageal reflux disease without esophagitis; F32.9 Major depressive disorder, single episode, unspecified; D50.9 Iron deficiency anemia, unspecified; Z88.1 Allergy status to other antibiotic agents; Z88.6 Allergy status to analgesic agent; Z88.8 Allergy status to other drugs, medicaments and biological substances; Z79.899 Other long term (current) drug therapy; Z86.010 Personal history of colon polyps
CPT/HCPCS: 36415; 45380; 45381; 45385; 85014; 85018; 88305; J2704; J2001

== ENCOUNTER 2018-09-25 17:08 | Inpatient (IN) | payer MEDICARE, BC ==
[~2018-09-25] VITALS: Ht 157.5 cm; Wt 68.7 kg
[~2018-09-25 17:08] MED LIST changes: -ALBUTEROL SULFATE 2.5 MG/3 ML NEBU. NEB PRN; -IPRATRPIUM/ALBUTEROL 0.5/2.5MG 3 ML NEBU. NEB PRN; -IV NORMAL SALINE 1,000ML 1,000 ML IV SCH; +LIDO700A21 TP; -LIDO700A39 TP; -LIDOCAINE 2% PF Vial for OR 5 ML VIAL. ONE; +MONT10TA80 PO; -MONT10TA9 PO; -ONDANSETRON PF 4 MG/2 ML VIAL. IV PRN; -PROPOFOL 10,000 MCG/ML (20ML) VIAL IV ONE; -PROPOFOL 40 ML IV ONE; -RACEPINEPHRINE 2.25% 0.5 ML NEBU. NEB PRN
[2018-09-25] MEDS ORDERED: methylPREDNISolone SOD SUCC PF 125 MG/2 ML VIAL. ONE (17:23)
[2018-09-25] MEDS ORDERED: IPRATRPIUM/ALBUTEROL 0.5/2.5MG 3 ML NEBU. ONE (17:23)
--- NOTE | 2018-09-25 17:28 | PHYS DOC ---
Past History Past Medical History: A-Fib, Anemia, Anxiety, Arrhythmia, Asthma, Constipation, COPD, Depression, GERD, High Cholesterol, Hypertension, Hypothyroid, Renal Disease, UTI, Other (CHRISTOPHER MARVIN DO) Past Surgical History: Appendectomy, Cholecystectomy, , Hysterectomy, Knee Replacement, Tonsillectomy (CHRISTOPHER MARVIN DO) Smoking: Non-smoker Alcohol Use: None Drug Use: None (CHRISTOPHER MARVIN DO) Adult General Chief Complaint Chief Complaint: SHORTNESS OF BREATH HPI HPI Patient is a 78-year-old female presents complaining of shortness of breath for the past 4 days. It has been getting worse over time. She has a history similar to this multiple times with "pre-pneumonia." Patient denies any fever. Patient reports minimal improvement with her home nebulizer as well as metered-dose inhaler treatments. Reports that her home oxygen level has been in the 93-94% range. No worsening with exertion. No worsening with recumbent position. No postural nocturnal dyspnea nor orthopnea. No swelling in legs feet or ankles. No previous history of pulmonary embolism. No recent travel. No trauma. No known hypercoagulable state. She has been having some sneezing as well as coughing. Nothing seems to make these better or worse. Symptoms are moderate to severe in intensity.[] (CHRISTOPHER MARVIN DO) Review of Systems Review of Systems Constitutional: Denies fever or chills [] Eyes: Denies change in visual acuity, redness, or eye pain [] HENT: Denies ear pain or sore throat [] Respiratory: See history of present illness[] Cardiovascular: No chest pain or palpitations[] GI: Denies abdominal pain, nausea, vomiting, bloody stools or diarrhea [] : Denies dysuria or hematuria [] Musculoskeletal: Denies back pain or joint pain [] Integument: Denies rash or skin lesions [] Neurologic: Denies headache, focal weakness or sensory changes [] Endocrine: Denies polyuria or polydipsia [] All other systems were reviewed and found to be within normal limits, except as documented in this note. (CHRISTOPHER MARVIN DO) Allergies Allergies Allergies Coded Allergies Type Severity Reaction Last Updated Verified Tetracyclines Allergy Intermediate Unknown 03/04/15 Yes adhesive Allergy Intermediate 12/27/15 Yes amoxicillin Allergy Intermediate tingling sensation all over 10/26/15 Yes cefotaxime Allergy Intermediate 03/04/15 Yes ciprofloxacin Allergy Intermediate 12/02/16 Yes clavulanic acid Allergy Intermediate tingling sensation all over 10/26/15 Yes clindamycin Allergy Intermediate 03/04/15 Yes tramadol Allergy Intermediate 12/02/16 Yes vancomycin Allergy Intermediate 03/04/15 Yes [facility] Physical Exam Physical Exam Constitutional: Well developed, thin, no acute distress, non-toxic appearance. [] HENT: Normocephalic, atraumatic, bilateral external ears normal, oropharynx moist, no oral exudates, nose normal. [] Eyes: PERRLA, EOMI, conjunctiva normal, no discharge. [] Neck: Normal range of motion, no tenderness, supple, no stridor. [] Cardiovascular:Heart rate regular rhythm, no murmur [] Lungs & Thorax: Bilateral breath sounds with inspiratory and expiratory wheezes. No retractions.[] Abdomen: Bowel sounds normal, soft, no tenderness, no masses, no pulsatile masses. [] Skin: Warm, dry, no erythema, no rash. [] Back: No tenderness, no CVA tenderness. [] Extremities: No tenderness, no cyanosis, no clubbing, ROM intact, mild pretibial edema bilaterally symmetric. [] Neurologic: Alert and oriented X 3, normal motor function, normal sensory function, no focal deficits noted. [] Psychologic: Affect normal, judgement normal, mood normal. [] ([facility]) Current Patient Data Vital Signs Vital Signs Date Time Temp Pulse Resp B/P (MAP) Pulse Ox O2 Delivery O2 Flow Rate FiO2 09/25/18 17:08 98.2 77 20 160/62 (94) 95 Room Air ([facility]) EKG EKG EKG shows a sinus rhythm at 86 bpm, left axis, QTC of 453 ms, no ST elevations. Interpreted by me at 1717.[] ([facility] Radiology/Procedures Radiology/Procedures [] ([facility]) Radiology/Procedures [address] [address] IMAGING REPORT Signed PATIENT: DYLAN JACKSON ACCOUNT: [id number] : 1940 LOCATION: ER AGE: 78 SEX: F EXAM STATUS: REG ER ORD. PHYSICIAN: CHRISTOPEHR MARVIN DO REASON: shortness of breath PROCEDURE: CHEST PA & LATERAL Indication: Shortness of breath TECHNIQUE: 2 views of the chest COMPARISON: 01/17/2018 FINDINGS: Stable position of right chest wall Chemo-Port with its tip in the SVC. Heart is normal in size. Mild bilateral central streaky opacities are seen without focal consolidation. No pneumothorax or pleural effusion. Visualized bony thorax is within normal limits. Mild dextroscoliosis of the thoracal spine. IMPRESSION: Findings suggests bronchitis/atypical/viral infection. Electronically signed by: Crispin Fernandez DO (09/25/2018 6:49 PM) [facility] DICTATED AND SIGNED BY: CRISPIN FERNANDEZ DO DATE: 09/25/181848 CC: CHRISTOPHER MARVIN DO; RUBEN PEREZ MD; ZAIDA BOBBY MD ~ (RUBEN PEREZ MD) Course & Med Decision Making Course & Med Decision Making Pertinent Labs and Imaging studies reviewed. (See chart for details) ED course: Patient arrived, was placed in bed, and tolerated exam well. Her port was accessed. She was given a breathing treatment. Patient care was endorsed to the nighttime physician at 1800 with laboratory and imaging studies pending.[] (CHRISTOPHER MARVIN DO) Course & Med Decision Making Pt. admitted to Dr. Mann for further eval. and tx. Will start with US eval. upper and lower ext. Has hx. prior DVT at site of port on Lt. . Possible needed for VQ if US are negative. Impression: 1. Dyspnea 2. Elevated D-dimer 0.90 3. Elevated Creat. 1.3 4. Thrombocytopenia 126 5. Elevated AST 46 6. Elev. BNP- 995 7. Hx. Hypo Immunoglobins 8. Hx DVT 9. Eosinophilia 33 (RUBEN PEREZ MD) Dragon Disclaimer Dragon Disclaimer This electronic medical record was generated, in whole or in part, using a voice recognition dictation system. (CHRISTOPHER MARVIN DO) Departure Departure: Referrals: ZAIDA BOBBY MD (PCP) CHRISTOPHER MARVIN DO Sep 25, 2018 17:28 RUBEN PEREZ MD Sep 25, 2018 19:03
[2018-09-25] MEDS ORDERED: IPRATRPIUM/ALBUTEROL 0.5/2.5MG 3 ML NEBU. NEB ONE (17:30)
[2018-09-25] MEDS ORDERED: methylPREDNISolone SOD SUCC PF 125 MG/2 ML VIAL. IV ONE (17:45)
[2018-09-25 17:59] LABS: BASO # 0.1 x10^3/uL (0.0-0.2); BASO % 1 % (0-3); EOS # 3.4 x10^3/uL (0.0-0.7); EOS % 33 % (0-3); HEMATOCRIT 37.1 % (36.0-47.0); LYMPH % 28 % (24-48); MEAN CORPUSCULAR HEMOGLOBIN 31 pg (25-35); MEAN CORPUSCULAR HGB CONC 32 g/dL (31-37); MEAN CORPUSCULAR VOLUME 96 fL (79-100); MONO % 9 % (0-9); NEUT % 29 % (31-73); PLATELET COUNT 126 x10^3/uL (140-400); RED BLOOD COUNT 3.84 x10^6/uL (3.50-5.40); RED CELL DISTRIBUTION WIDTH 14.7 % (11.5-14.5); WHITE BLOOD COUNT 10.5 x10^3/uL (4.0-11.0)
--- NOTE | 2018-09-25 18:01 | EKG ---
[address] [address] Test Date: 2018-09-25 Test Time: 17:18:20 Pat Name: DYLAN JACKSON Department: Room: Gender: F Paid Internship: HARDY : 1940 Requested By: CHRISTOPHER MARVIN Order Number: [id number] Reading MD: Measurements Intervals [place] Rate: 86 P: 90 MS: 154 QRS: -14 QRSD: 72 T: 39 QT: 376 QTc: 453 Interpretive Statements SINUS RHYTHM LEFTWARD AXIS LOW LIMB LEAD VOLTAGE NO SPECIFIC ECG ABNORMALITIES RI6.01 No previous ECG available for comparison
[2018-09-25 18:29] LABS: ALBUMIN/GLOBULIN RATIO 1.4 (1.0-1.7); CALCIUM 8.8 mg/dL (8.5-10.1); CREATININE 1.3 mg/dL (0.6-1.0); GFR 39.7; TOTAL BILIRUBIN 0.4 mg/dL (0.2-1.0); TOTAL PROTEIN 5.2 g/dL (6.4-8.2)
[2018-09-25] MEDS ORDERED: FUROSEMIDE 40 MG/4 ML VIAL IVP ONE (18:45)
--- NOTE | 2018-09-25 18:52 | RAD ---
Indication: Shortness of breath TECHNIQUE: 2 views of the chest COMPARISON: 01/17/2018 FINDINGS: Stable position of right chest wall Chemo-Port with its tip in the SVC. Heart is normal in size. Mild bilateral central streaky opacities are seen without focal consolidation. No pneumothorax or pleural effusion. Visualized bony thorax is within normal limits. Mild dextroscoliosis of the thoracal spine. IMPRESSION: Findings suggests bronchitis/atypical/viral infection. Electronically signed by: Crispin Fernandez DO (09/25/2018 6:49 PM) [facility]
[2018-09-25 19:25] LABS: CLARITY,URINE HAZY; COLOR,URINE YELLOW
[2018-09-25 19:26] LABS: BACTERIA,URINE MOD /HPF (0-FEW); BILIRUBIN,URINE NEG (NEG); GLUCOSE,URINE NEG (NEG); NITRITE,URINE NEG (NEG); RBC,URINE OCC /HPF (0-2); SQUAMOUS EPITHELIAL CELL,UR OCC /LPF; UROBILINOGEN,URINE 0.2 mg/dL (0.2 mg/dL); YEAST,URINE PRESENT /HPF
[2018-09-25] MEDS ORDERED: ONDANSETRON PF 4 MG/2 ML VIAL. IV PRN (19:30)
[2018-09-25] MEDS ORDERED: ENOXAPARIN ** NOTE DOSE ** SYRINGE SQ ONE (19:30)
[2018-09-25] MEDS: IPRATRPIUM/ALBUTEROL 0.5/2.5MG 3 ML NEBU. NEB SCH (20:09)
[2018-09-25 22:08] VITALS: BP 138/84
[2018-09-26] MEDS: IPRATRPIUM/ALBUTEROL 0.5/2.5MG 3 ML NEBU. NEB SCH (05:03)
[2018-09-26 05:27] VITALS: BP 124/70
[2018-09-26 06:55] LABS: BASO % 0 % (0-3); CALCIUM 8.9 mg/dL (8.5-10.1); CREATININE 1.5 mg/dL (0.6-1.0); EOS % 0 % (0-3); GFR 33.7; HEMATOCRIT 37.9 % (36.0-47.0); HEMOGLOBIN 12.4 g/dL (12.0-15.5); LYMPH # 0.4 x10^3/uL (1.0-4.8); LYMPH % 6 % (24-48); MEAN CORPUSCULAR HEMOGLOBIN 31 pg (25-35); MEAN CORPUSCULAR HGB CONC 33 g/dL (31-37); MEAN CORPUSCULAR VOLUME 95 fL (79-100); MONO # 0.1 x10^3/uL (0.0-1.1); MONO % 1 % (0-9); NEUT # 5.8 x10^3uL (1.8-7.7); NEUT % 92 % (31-73); PLATELET COUNT 120 x10^3/uL (140-400); POTASSIUM 3.5 mmol/L (3.5-5.1); RED BLOOD COUNT 3.97 x10^6/uL (3.50-5.40); RED CELL DISTRIBUTION WIDTH 14.3 % (11.5-14.5); WHITE BLOOD COUNT 6.3 x10^3/uL (4.0-11.0)
[2018-09-26] MEDS ORDERED: ASPIRIN 81 MG TAB.CHEW PO SCH ×2 (08:00→09:00)
--- NOTE | 2018-09-26 08:14 | RAD ---
Ultrasound venous Doppler INDICATION:Elevated d-dimer. Shortness of breath. TECHNIQUE: Grayscale, color Doppler and spectral waveform ultrasound images of the bilateral lower extremities deep veins obtained. COMPARISON: None FINDINGS: The interrogated deep veins are compressible and demonstrate evidence of blood flow with normal respiratory variation and response to augmentation. IMPRESSION: No sonographic evidence of acute DVT of the bilateral lower extremity deep veins. Electronically signed by: Crispin Fernandez DO (09/26/2018 8:12 AM) [facility]
--- NOTE | 2018-09-26 08:16 | RAD ---
Ultrasound venous Doppler INDICATION:Elevated d-dimer. Shortness of breath. TECHNIQUE: Grayscale, color Doppler and spectral waveform ultrasound images of the bilateral upper extremities deep veins obtained. COMPARISON: None FINDINGS: The interrogated deep veins are compressible and demonstrate evidence of blood flow with normal respiratory variation and response to augmentation. IMPRESSION: No sonographic evidence of acute DVT of the bilateral upper extremity deep veins. Electronically signed by: Crispin Fernandez DO (09/26/2018 8:13 AM) [facility]
[2018-09-26] MEDS ORDERED: ENOXAPARIN ** NOTE DOSE ** SYRINGE SQ SCH (09:00)
[2018-09-26] MEDS ORDERED: CETIRIZINE HCL 10 MG TABLET PO SCH (09:00)
--- NOTE | 2018-09-26 09:56 | HP ---
ADMIT DATE: 09/25/2018 ATTENDING PHYSICIAN: Dr. Ventura. CHIEF COMPLAINT: Shortness of breath. HISTORY OF PRESENT ILLNESS: The patient is a very pleasant, alert 78-year-old female admitted through the ED with increasing shortness of breath for the last 4 days that has been getting worse. She does walk her dog in the daytime, the humidity is quite symptomatic. She has history of asthma in the past. She has supplemental oxygen as needed. Oxygen saturations were adequate. She denied any orthopnea, swelling. Her chest x-ray I did review this in detail. There is no overt decompensation or cardiomegaly. She was admitted with an exacerbation of asthma. PAST MEDICAL HISTORY: Quite interesting. She has a history of asthma, anxiety, atrial fibrillation, chronic anemia, gastroesophageal reflux disease, hyperlipidemia, hypertension, hypothyroidism, UTI and chronic kidney disease. ALLERGIES: She has several allergies including TETRACYCLINE, ADHESIVE, AMOXICILLIN, CEFOTAXIME, CIPROFLOXACIN, CLAVULANIC ACID, CLINDAMYCIN, TRAMADOL and VANCOMYCIN, exact reaction is unclear. CURRENT MEDICATIONS: Reviewed. She takes albuterol, vitamin C, vitamin D3, Lexapro, estradiol, Advair inhaler, Lasix, Synthroid 75 mcg daily, Lidoderm patch, meclizine, montelukast, Protonix, potassium, Daliresp and tiotropium bromide. FAMILY HISTORY: Noncontributory. SOCIAL HISTORY: She is . She has 3 sons that live close by. She is a nonsmoker, nondrinker. REVIEW OF SYSTEMS: Significant for the dyspnea. No fevers, chills, palpitations, cough, congestion, orthopnea. No nausea or vomiting. Appetite has been fair. All other systems reviewed and found to be negative. PHYSICAL EXAMINATION: GENERAL: When I saw her, this is a pleasant elderly female, very alert and oriented. INITIAL VITAL SIGNS: Showed a blood pressure of 138/84, pulse is 82 and regular. She was afebrile. HEENT: Head is without trauma. Pupils are reactive. Sclerae nonicteric. Oropharynx clear. NECK: Supple, no bruits. LUNGS: When I saw her was actually clear, she had some earlier wheezing. CARDIOVASCULAR: Regular, heart tones. No obvious gallops. Peripheral pulses are palpable and full. ABDOMEN: Soft, scaphoid, nontender, no organomegaly. Bowel sounds are hypoactive. EXTREMITIES: Show no cyanosis or edema. NEUROLOGIC: Focally intact. Speech is fluent. SKIN: Warm and dry. LABORATORY DATA AND X-RAY STUDIES: Chest x-ray was entirely clear. Her creatinine is slightly elevated at 1.3 mg/dL. Potassium is 4.0 mEq, hemoglobin 12.4 g/dL with white count of 6300. ASSESSMENT: 1. A 78-year-old female with symptomatic dyspnea related to temperature-induced asthma. 2. History of hypogammaglobulinemia. 3. Chronic obstructive pulmonary disease and asthma by history. 4. Essential hypertension. 5. Hypothyroidism. 6. Depression with anxiety. PLAN: 1. Admit to the inpatient admit for observation. 2. Nebulizer therapy. 3. Empiric Solu-Medrol given. 4. Continue home meds. 5. Diet as tolerated. NATHAN VENTURA MD DR: ROSEMARIE/dilip JOB#: [id number] / [id number]
--- NOTE | 2018-09-26 20:16 | DS ---
DATE OF DISCHARGE: 09/26/2018 ATTENDING PHYSICIAN: Dr. Nathan Ventura FINAL DISCHARGE DIAGNOSES: 1. Exacerbation of asthma. 2. Underlying chronic obstructive pulmonary disease. 3. History of hypogammaglobinemia. 4. Essential hypertension. 5. History of eosinophilia. 6. History of chronic obstructive pulmonary disease. HISTORY AND PHYSICAL: This is a very pleasant 78-year-old female who was admitted with 4 day history of increasing shortness of breath and wheezing. Chest x-ray by my review was clear. She had symptoms of asthma documented and given her history. Her saturations have been adequate. There are no obvious signs of blood clots. PHYSICAL EXAMINATION: Please see the dictated note. PERTINENT LABORATORY AND X-RAYS: Her chest x-ray was clear without any acute decompensation or infiltrate. Hemoglobin was maintained at 12.0 g/dL with white count of 10,500. Chemistry panel is unremarkable with a BUN of 23, creatinine 1.5 mg/dL. Electrolytes are within normal range. The obligatory cardiac enzymes were negative and a BNP was 990. COURSE IN THE HOSPITAL: The patient was admitted. She responded well to empiric steroids and breathing treatments. She did well. By the next day, when I saw her, her vital signs are quite stable. She wanted to go home. I felt this is reasonable. I recommend continuation of her inhaler and also 4 more days of prednisone 60 mg p.o. daily and then stop. In addition, she can follow up with her regular physician. She has a senior technical architect on schedule to see in 2 weeks' time. DISCHARGE MEDICATIONS: Include her albuterol, Atrovent, vitamin C, vitamin D, Lexapro, estradiol, Advair, Lasix, Synthroid, Lidoderm patch, Montelukast, Protonix, potassium, Daliresp and Spiriva. Doses are unchanged. I did write a script for prednisone 60 mg p.o. daily for 4 days and then stop. She was discharged from my hospital in stable condition with assist during followup care. NATHAN VENTURA MD DR: ROSEMARIE/dilip JOB#: [id number] / [id number]
[2018-09-26] MEDS ORDERED: ATORVASTATIN CALCIUM 20 MG TABLET PO SCH (21:00)
== END 2018-09-26 09:20 | disposition home or self-care (01) | DRG 191 ==
LOC: ER 17:08 → 1 SOUTH 21:14
PROVIDERS: ADMIT Hospitalist; ATTEND Hospitalist
DX: J44.9 Chronic obstructive pulmonary disease, unspecified (principal); J45.901 Unspecified asthma with (acute) exacerbation; I48.91 Unspecified atrial fibrillation; K21.9 Gastro-esophageal reflux disease without esophagitis; E78.00 Pure hypercholesterolemia, unspecified; E03.9 Hypothyroidism, unspecified; Z96.659 Presence of unspecified artificial knee joint; D69.6 Thrombocytopenia, unspecified; D72.1 Eosinophilia; E78.5 Hyperlipidemia, unspecified; N18.9 Chronic kidney disease, unspecified; I12.9 Hypertensive chronic kidney disease with stage 1 through stage 4 chronic kidney disease, or unspecified chronic kidney disease; F41.8 Other specified anxiety disorders; Z90.49 Acquired absence of other specified parts of digestive tract; Z90.710 Acquired absence of both cervix and uterus; Z88.6 Allergy status to analgesic agent; Z88.1 Allergy status to other antibiotic agents; Z88.0 Allergy status to penicillin; Z86.718 Personal history of other venous thrombosis and embolism
CPT/HCPCS: 36415; 71046; 80048; 80053; 81001; 83880; 84484; 85025; 85379; 87040; 87086; 93005; 93970; 94640; 96372; 96374; 96375; G0238; J1650; J1940; J2930; J7620; 99285-25

== ENCOUNTER 2018-10-16 12:35 | Emergency (ER) | payer MEDICARE, BC ==
[~2018-10-16] VITALS: Ht 157.5 cm; Wt 72.1 kg
[2018-10-16] MEDS ORDERED: IPRATRPIUM/ALBUTEROL 0.5/2.5MG 3 ML NEBU. NEB ONE (13:00)
[2018-10-16 13:16] LABS: BASO % 0 % (0-3); EOS # 0.5 x10^3/uL (0.0-0.7); EOS % 5 % (0-3); HEMOGLOBIN 11.9 g/dL (12.0-15.5); LYMPH # 1.7 x10^3/uL (1.0-4.8); LYMPH % 14 % (24-48); MEAN CORPUSCULAR HEMOGLOBIN 31 pg (25-35); MEAN CORPUSCULAR HGB CONC 32 g/dL (31-37); MEAN CORPUSCULAR VOLUME 95 fL (79-100); MONO # 0.9 x10^3/uL (0.0-1.1); MONO % 8 % (0-9); NEUT # 8.3 x10^3uL (1.8-7.7); NEUT % 73 % (31-73); PLATELET COUNT 132 x10^3/uL (140-400); RED CELL DISTRIBUTION WIDTH 14.7 % (11.5-14.5); WHITE BLOOD COUNT 11.5 x10^3/uL (4.0-11.0)
[2018-10-16 13:26] LABS: ALBUMIN 3.2 g/dL (3.4-5.0); ALBUMIN/GLOBULIN RATIO 1.3 (1.0-1.7); CALCIUM 8.7 mg/dL (8.5-10.1); CREATININE 1.6 mg/dL (0.6-1.0); GFR 31.3; TOTAL BILIRUBIN 0.8 mg/dL (0.2-1.0); TOTAL PROTEIN 5.6 g/dL (6.4-8.2)
[2018-10-16] MEDS ORDERED: methylPREDNISolone SOD SUCC PF 125 MG/2 ML VIAL. IV ONE (13:30)
[2018-10-16 13:40] VITALS: BP 147/68
--- NOTE | 2018-10-16 13:49 | RAD ---
CHEST PA LATERAL History: Cough Comparison: Two-view chest September 25, 2018. Findings: Stable right chest Port-A-Cath. Atherosclerotic aortic arch. Cardiac size is normal. Minimal left basilar airspace disease. The right lung is clear. No pleural effusion or pneumothorax is seen. There is no acute bone abnormality. IMPRESSION: There is minimal left basilar airspace disease. Electronically signed by: Param Foss MD (10/16/2018 1:46 PM) [facility]
--- NOTE | 2018-10-16 14:26 | PHYS DOC ---
Past History Past Medical History: A-Fib, Anemia, Anxiety, Arrhythmia, Asthma, Constipation, COPD, Depression, GERD, High Cholesterol, Hypertension, Hypothyroid, Renal Disease, UTI, Other Past Surgical History: Appendectomy, Cholecystectomy, , Hysterectomy, Knee Replacement, Tonsillectomy Smoking: Non-smoker Alcohol Use: None Drug Use: None Adult General Chief Complaint Chief Complaint: SHORTNESS OF BREATH HPI HPI Patient is a 78-year-old female who presents with complaint of ongoing shortness of breath. Patient states that she has a history of COPD and currently is being treated with antibiotics. Patient states that she is coming in and requesting a shot of Solu-Medrol because she believes that that is the only thing limits, Effexor. She denies any fever. She does indicate that she has shortness of br eath, especially with exertion. She denies any chest pain. She denies any fever or chills. She states that symptoms are worsened with exertion.[] Review of Systems Review of Systems Constitutional: Denies fever or chills [] Respiratory: Positive cough and shortness of breath [] Cardiovascular: No additional information not addressed in HPI [] GI: Denies abdominal pain, nausea, vomiting or diarrhea [] Neurologic: Denies headache, focal weakness or sensory changes [] All other systems were reviewed and found to be within normal limits, except as documented in this note. Current Medications Current Medications Current Medications Medications (Trade) Dose Ordered Sig/Delmi Start Time Stop Time Status Last Admin Dose Admin Albuterol/ Ipratropium (Duoneb) 3 ml 1X ONCE 10/16/18 13:00 10/16/18 13:06 DC 10/16/18 12:59 3 ML Methylprednisolone Sodium Succinate (SOLU-Medrol 125MG VIAL) 125 mg 1X ONCE 10/16/18 13:30 10/16/18 13:31 DC 10/16/18 13:07 125 MG Allergies Allergies Allergies Coded Allergies Type Severity Reaction Last Updated Verified Tetracyclines Allergy Intermediate Unknown 03/04/15 Yes adhesive Allergy Intermediate 03/04/15 Yes amoxicillin Allergy Intermediate tingling sensation all over 10/26/15 Yes cefotaxime Allergy Intermediate 03/04/15 Yes ciprofloxacin Allergy Intermediate 12/02/16 Yes clavulanic acid Allergy Intermediate tingling sensation all over 10/26/15 Yes clindamycin Allergy Intermediate 03/04/15 Yes tramadol Allergy Intermediate 12/02/16 Yes vancomycin Allergy Intermediate 03/04/15 Yes Physical Exam Physical Exam Constitutional: Well developed, well nourished, no acute distress, non-toxic appearance. [] HENT: Normocephalic, atraumatic, bilateral external ears normal, oropharynx moist, no oral exudates, nose normal. [] Eyes: PERRLA, EOMI, conjunctiva normal, no discharge. [] Neck: Normal range of motion, no tenderness, supple, no stridor. [] Cardiovascular:Heart rate regular rhythm, no murmur [] Lungs & Thorax: Inspiratory and expiratory wheezes along with coarse rhonchi in the bases are noted to auscultation [] Abdomen: Bowel sounds normal, soft, no tenderness. [] Skin: Warm, dry, no erythema, no rash. [] Extremities: No tenderness, no cyanosis, no clubbing, ROM intact. [] Neurologic: Alert and oriented X 3, no focal deficits noted. [] Current Patient Data Vital Signs Vital Signs Date Time Temp Pulse Resp B/P (MAP) Pulse Ox O2 Delivery O2 Flow Rate FiO2 10/16/18 13:01 93 Room Air 10/16/18 12:35 98.3 98 20 Lab Results Laboratory Tests Test 10/16/18 12:42 White Blood Count 11.5 x10^3/uL (4.0-11.0) H Red Blood Count 3.90 x10^6/uL (3.50-5.40) Hemoglobin 11.9 g/dL (12.0-15.5) L Hematocrit 37.0 % (36.0-47.0) Mean Corpuscular Volume 95 fL (79-100) Mean Corpuscular Hemoglobin 31 pg (25-35) Mean Corpuscular Hemoglobin Concent 32 g/dL (31-37) Red Cell Distribution Width 14.7 % (11.5-14.5) H Platelet Count 132 x10^3/uL (140-400) L Neutrophils (%) (Auto) 73 % (31-73) Lymphocytes (%) (Auto) 14 % (24-48) L Monocytes (%) (Auto) 8 % (0-9) Eosinophils (%) (Auto) 5 % (0-3) H Basophils (%) (Auto) 0 % (0-3) Neutrophils # (Auto) 8.3 x10^3uL (1.8-7.7) H Lymphocytes # (Auto) 1.7 x10^3/uL (1.0-4.8) Monocytes # (Auto) 0.9 x10^3/uL (0.0-1.1) Eosinophils # (Auto) 0.5 x10^3/uL (0.0-0.7) Basophils # (Auto) 0.0 x10^3/uL (0.0-0.2) Sodium Level 141 mmol/L (136-145) Potassium Level 4.0 mmol/L (3.5-5.1) Chloride Level 106 mmol/L (98-107) Carbon Dioxide Level 25 mmol/L (21-32) Anion Gap 10 (6-14) Blood Urea Nitrogen 7 mg/dL (7-20) Creatinine 1.6 mg/dL (0.6-1.0) H Estimated GFR (Cockcroft-Gault) 31.3 BUN/Creatinine Ratio 4 (6-20) L Glucose Level 93 mg/dL (70-99) Calcium Level 8.7 mg/dL (8.5-10.1) Total Bilirubin 0.8 mg/dL (0.2-1.0) Aspartate Amino Transferase (AST) 28 U/L (15-37) Alanine Aminotransferase (ALT) 22 U/L (14-59) Alkaline Phosphatase 81 U/L (46-116) Troponin I Quantitative < 0.017 ng/mL (0-0.055) YO-Hlq-D-Type Natriuretic Peptide 2301 pg/mL (0-449) H Total Protein 5.6 g/dL (6.4-8.2) L Albumin 3.2 g/dL (3.4-5.0) L Albumin/Globulin Ratio 1.3 (1.0-1.7) EKG EKG [] Radiology/Procedures Radiology/Procedures [] Impressions: CHEST PA LATERAL History: Cough Comparison: Two-view chest September 25, 2018. Findings: Stable right chest Port-A-Cath. Atherosclerotic aortic arch. Cardiac size is normal. Minimal left basilar airspace disease. The right lung is clear. No pleural effusion or pneumothorax is seen. There is no acute bone abnormality. IMPRESSION: There is minimal left basilar airspace disease. Electronically signed by: Param Foss MD (10/16/2018 1:46 PM) [facility] Course & Med Decision Making Course & Med Decision Making Pertinent Labs and Imaging studies reviewed. (See chart for details) [] Dragon Disclaimer Dragon Disclaimer This electronic medical record was generated, in whole or in part, using a voice recognition dictation system. Departure Departure: Impression: Primary Impression: COPD exacerbation Disposition: 01 HOME, SELF-CARE Condition: STABLE Referrals: ZAIDA BOBBY MD (PCP) Patient Instructions: Chronic Obstructive Pulmonary Disease DEIDRE HENSLEY Jr. DO Oct 16, 2018 14:26
--- NOTE | 2018-10-16 15:56 | EKG ---
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
== END 2018-10-16 14:37 | disposition home or self-care (01) ==
LOC: ER 12:35
DX: J44.1 Chronic obstructive pulmonary disease with (acute) exacerbation (principal); I48.91 Unspecified atrial fibrillation; F41.9 Anxiety disorder, unspecified; K21.9 Gastro-esophageal reflux disease without esophagitis; E78.00 Pure hypercholesterolemia, unspecified; I10 Essential (primary) hypertension; E03.9 Hypothyroidism, unspecified; Z87.440 Personal history of urinary (tract) infections; Z86.2 Personal history of diseases of the blood and blood-forming organs and certain disorders involving the immune mechanism; Z88.1 Allergy status to other antibiotic agents; Z88.8 Allergy status to other drugs, medicaments and biological substances; Z88.6 Allergy status to analgesic agent
CPT/HCPCS: 36415; 71046; 80053; 83880; 84484; 85025; 93005; 94640; 96374; 99285; J2930; J7620

== ENCOUNTER 2019-01-26 11:32 | Inpatient (IN) | payer MEDICARE, BC ==
[~2019-01-26] VITALS: Ht 157.5 cm; Wt 68.9 kg
[~2019-01-26 11:32] MED LIST changes: -POTA20TA82 PO
[2019-01-26] MEDS ORDERED: IPRATRPIUM/ALBUTEROL 0.5/2.5MG 3 ML NEBU. NEB ONE (12:00)
[2019-01-26] MEDS ORDERED: DEXAMETHASONE SOD PHOS 10 MG/ML VIAL IV ONE (12:00)
--- NOTE | 2019-01-26 12:05 | PHYS DOC ---
Past History Past Medical History: Cancer, COPD, Hypertension, Hypothyroid Past Surgical History: Cholecystectomy, , Hysterectomy Smoking: Non-smoker Alcohol Use: None Drug Use: None Adult General Chief Complaint Chief Complaint: SHORTNESS OF BREATH HPI HPI Pt is a 78 y/o female with a history of COPD, a-fib, anemia, GERD, HLD, HTN, and CKD who presents to the ED with shortness of breath that began yesterday. She states using oxygen and nebulizer at home has not relieved her symptoms. Pt reports that she has been hospitalized multiple times in the past due to similar symptoms of COPD exacerbation. Associated chest pain upon inspiration. Pt is followed by Dr. Sherman at [place]. Review of Systems Review of Systems Constitutional: Denies fever or chills Eyes: Denies redness or eye pain HENT: Denies nasal congestion or sore throat Respiratory: Reports SOB, cough Cardiovascular: Reports chest pain GI: Denies abdominal pain, nausea, or vomiting : Denies dysuria or hematuria Musculoskeletal: Denies back pain or joint pain Integument: Denies rash or skin lesions Neurologic: Denies headache, focal weakness or sensory changes Complete systems were reviewed and found to be within normal limits, except as documented in this note. Current Medications Current Medications Current Medications Medications (Trade) Dose Ordered Sig/Delmi Start Time Stop Time Status Last Admin Dose Admin Albuterol/ Ipratropium (Duoneb) 3 ml 1X ONCE 01/26/19 12:00 01/26/19 12:01 Dexamethasone Sodium Phosphate (Decadron) 10 mg 1X ONCE 01/26/19 12:00 01/26/19 12:01 Allergies Allergies Allergies Coded Allergies Type Severity Reaction Last Updated Verified Tetracyclines Allergy Intermediate Unknown 03/04/15 Yes adhesive Allergy Intermediate 03/04/15 Yes amoxicillin Allergy Intermediate tingling sensation all over 10/26/15 Yes cefotaxime Allergy Intermediate 03/04/15 Yes ciprofloxacin Allergy Intermediate 12/02/16 Yes clavulanic acid Allergy Intermediate tingling sensation all over 10/26/15 Yes clindamycin Allergy Intermediate 03/04/15 Yes tramadol Allergy Intermediate 12/02/16 Yes vancomycin Allergy Intermediate 03/04/15 Yes Physical Exam Physical Exam Constitutional: Well developed, well nourished, no acute distress, non-toxic appearance Neck: Normal range of motion, no tenderness, supple Cardiovascular: Irregular irregular rate and rhythm Lungs & Thorax: Breath sounds coarse with wheezing and rhonchi, Cough w/ phelgm Abdomen: Soft, no tenderness Skin: Warm, dry, no erythema, no rash Back: No tenderness, no CVA tenderness Extremities: No tenderness, ROM intact, no edema Neurologic: Alert and oriented X 3, normal motor function, normal sensory function, no focal deficits noted Current Patient Data Vital Signs Vital Signs Date Time Temp Pulse Resp B/P (MAP) Pulse Ox O2 Delivery O2 Flow Rate FiO2 01/26/19 11:43 98.4 110 28 87 Room Air EKG EKG EKG @ 1218 on 01/26/19, 73 BPM, Atrial fibrillation, no ST-elevations, low voltage Radiology/Procedures Radiology/Procedures PROCEDURE: CHEST AP ONLY Single view of the chest. 01/26/2019 11:47 AM Indication: Dyspnea Comparison: Chest radiograph October 16, 2018 Findings: There is a right internal jugular port with tip at the cavoatrial junction. No pneumothorax or pleural effusion is seen. Heart size is normal. No focal infiltrates are seen. Bony thorax is grossly intact. Dextroscoliosis of the thoracic spine. IMPRESSION: No evidence of acute cardiopulmonary process or acute change from prior exam. Electronically signed by: Burton Capps MD (01/26/2019 12:14 PM) [id number] Course & Med Decision Making Course & Med Decision Making Pt is a 78 y/o female with a history of COPD, a-fib, anemia, GERD, HLD, HTN, and CKD who presents with a COPD exacerbation. She states that this has happened multiple times in the past. Pt sats high 80s on RA, improved with supplemental O2, respiratory nebs provided, IV steroids initiated, labs obtained and posted in chart, BNP elevated, troponin WNL, Cr slightly elevated, lactic acid WNL. CXR w/ out opacity or increased vascular congestion. Pt's physical exam appears more likely COPD, but component of CHF not completely excluded. Given increased Cr, will hold diuretic at this time. Patient requiring admission for further evaluation and treatment. Discussed with Dr. Willis (hospitalist) who is in agreement with admission. Discussed findings and plan with patient and family, who acknowledge understanding and agreement. Dragon Disclaimer Dragon Disclaimer This electronic medical record was generated, in whole or in part, using a voice recognition dictation system. Departure Departure: Impression: Primary Impression: COPD exacerbation Additional Impressions: Hypoxia CHF (congestive heart failure) Disposition: 09 ADMITTED INPATIENT Admitting Physician: Eliana Willis Condition: GUARDED Referrals: ZAIDA BOBBY MD (PCP) Critical Care Time Critical care time was 30 minutes which includes time at bedside, spent in discussion of patient's care with specialists and/or family members, with interpretation of laboratory and/or radiological studies and is exclusive of procedures. Problem Qualifiers Additional Impressions: CHF (congestive heart failure) Heart failure type: unspecified Heart failure chronicity: unspecified Qualified Codes: I50.9 - Heart failure, unspecified DAVID MCCALL DO Jan 26, 2019 12:05
--- NOTE | 2019-01-26 12:17 | RAD ---
Single view of the chest. 01/26/2019 11:47 AM Indication: Dyspnea Comparison: Chest radiograph October 16, 2018 Findings: There is a right internal jugular port with tip at the cavoatrial junction. No pneumothorax or pleural effusion is seen. Heart size is normal. No focal infiltrates are seen. Bony thorax is grossly intact. Dextroscoliosis of the thoracic spine. IMPRESSION: No evidence of acute cardiopulmonary process or acute change from prior exam. Electronically signed by: Burton Capps MD (01/26/2019 12:14 PM) [facility]
--- NOTE | 2019-01-26 12:21 | EKG ---
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
[2019-01-26 12:30] LABS: BASO # 0.2 x10^3/uL (0.0-0.2); BASO % 2 % (0-3); EOS # 3.8 x10^3/uL (0.0-0.7); EOS % 39 % (0-3); HEMATOCRIT 35.1 % (36.0-47.0); HEMOGLOBIN 11.3 g/dL (12.0-15.5); LYMPH # 1.6 x10^3/uL (1.0-4.8); LYMPH % 16 % (24-48); MEAN CORPUSCULAR HEMOGLOBIN 30 pg (25-35); MEAN CORPUSCULAR HGB CONC 32 g/dL (31-37); MEAN CORPUSCULAR VOLUME 94 fL (79-100); MONO # 0.9 x10^3/uL (0.0-1.1); MONO % 9 % (0-9); NEUT # 3.3 x10^3uL (1.8-7.7); NEUT % 34 % (31-73); PLATELET COUNT 144 x10^3/uL (140-400); RED BLOOD COUNT 3.73 x10^6/uL (3.50-5.40); RED CELL DISTRIBUTION WIDTH 14.3 % (11.5-14.5); WHITE BLOOD COUNT 9.8 x10^3/uL (4.0-11.0)
[2019-01-26 12:54] LABS: ALBUMIN 2.9 g/dL (3.4-5.0); ALBUMIN/GLOBULIN RATIO 1.2 (1.0-1.7); CALCIUM 8.2 mg/dL (8.5-10.1); CREATININE 1.4 mg/dL (0.6-1.0); GFR 36.5; MAGNESIUM 1.8 mg/dL (1.8-2.4); POTASSIUM 3.7 mmol/L (3.5-5.1); TOTAL BILIRUBIN 0.7 mg/dL (0.2-1.0); TOTAL PROTEIN 5.4 g/dL (6.4-8.2)
[2019-01-26 13:05] LABS: INFLUENZA A PATIENT NEGATIVE (NEGATIVE); INFLUENZA B PATIENT NEGATIVE (NEGATIVE)
[2019-01-26 13:27] LABS: BILIRUBIN,URINE NEG (NEG); CLARITY,URINE HAZY; COLOR,URINE YELLOW; GLUCOSE,URINE NEG (NEG)
[2019-01-26 13:28] LABS: BACTERIA,URINE 0 /HPF (0-FEW); HYALINE CASTS, URINE FEW /HPF; NITRITE,URINE NEG (NEG); RBC,URINE OCC /HPF (0-2); SQUAMOUS EPITHELIAL CELL,UR FEW /LPF; UROBILINOGEN,URINE 0.2 mg/dL (0.2 mg/dL); YEAST,URINE PRESENT /HPF
[2019-01-26] MEDS ORDERED: IPRATRPIUM/ALBUTEROL 0.5/2.5MG 3 ML NEBU. NEB PRN (13:30)
[2019-01-26 14:17] VITALS: BP 156/69
[2019-01-26] MEDS ORDERED: ASPI-630 PO (15:26)
[2019-01-26] MEDS ORDERED: CETI10TA22 PO (15:26)
[2019-01-26] MEDS ORDERED: AZIT250T6 PO (15:26)
[2019-01-26] MEDS ORDERED: ATOR20TA58 PO (15:26)
[2019-01-26] MEDS ORDERED: ACET500T68 PO (15:26)
[2019-01-26] MEDS ORDERED: [UNRECOGNIZED DRUG - CODE] PO (15:26)
[2019-01-26] MEDS ORDERED: FLUT1DIS5 IH (15:26)
[2019-01-26] MEDS ORDERED: FLUT9.9S NS (15:26)
[2019-01-26] MEDS ORDERED: FURO80TA72 PO (16:59)
[2019-01-26] MEDS ORDERED: ALBUTEROL SULFATE 2.5 MG/3 ML NEBU. IH PRN ×2 (17:00→21:00)
[2019-01-26] MEDS ORDERED: NON FORMULARY ITEM (Tiotropium Bromide (Spiriva) 18 MCG) IH PRN (17:00)
[2019-01-26] MEDS ORDERED: ACETAMINOPHEN 500 MG TABLET PO PRN (17:00)
[2019-01-26] MEDS ORDERED: HYDROcodone/APAP 10/325 1 TAB TABLET PO PRN (17:00)
[2019-01-26] MEDS ORDERED: MECLIZINE 12.5 MG TABLET. PO PRN (17:00)
--- NOTE | 2019-01-26 17:40 | HP ---
ADMIT DATE: 01/26/2019 HISTORY OF PRESENT ILLNESS: The patient is a 78-year-old female patient, who came to the Emergency Room complaining of increasing shortness of breath that has been going on for the last few days. Normally, she used the nebulized treatment about 3 times and usually her symptoms improved, but she did it last night and this morning and continued to be very short of breath and therefore she came to the Emergency Room where she was evaluated. She is apparently followed by Dr. Sherman at [facility], and Dr. Rocío Thomas, the oncologist/senior portfolio analyst, said she has severe eosinophilia for which she has had a bone marrow biopsy done [facility], the result of which is still pending at the time of this dictation. I did question her about any travel abroad, has been anywhere in [place] or [place], and she stated that she has never been out of this country. She has had multiple nasal surgeries, but denies has not had any nasal polyps removed. She has never had any hemoptysis or epistaxis. She was evaluated in the Emergency Room, was treated with dexamethasone as well as albuterol and Atrovent, was admitted for further evaluation and treatment as an inpatient. PAST MEDICAL HISTORY: Significant for chronic bronchial asthma/chronic obstructive pulmonary disease, atrial fibrillation, chronic anemia, gastroesophageal reflux disease, hyperlipidemia, hypertension, hypothyroidism, recurrent urinary tract infection and chronic kidney disease. PAST SURGICAL HISTORY: Significant for , sinus surgery x 4. She has bladder suspension, cholecystectomy, total abdominal hysterectomy, bilateral salpingo-oophorectomy. She underwent breast reduction surgery. She has also Reina fundoplication. She has bilateral cataract extraction, bilateral total knee arthroplasty. She underwent upper GI endoscopy and underwent nose reconstruction for cancer in 2013. She underwent thoracentesis and about 850 mL fluid removed from her left chest, hemothorax. Has colonoscopy and esophagogastroduodenoscopy multiple times. She has also cardiac catheterization and broken femur, knee and tibia. She underwent also colonoscopy. ALLERGIES: SHE IS ALLERGIC TO TETRACYCLINE, ADHESIVES, AMOXICILLIN, CEFOTAXIME, CIPROFLOXACIN, CLAVULANIC ACID, CLINDAMYCIN, TRAMADOL AND VANCOMYCIN. MEDICATIONS: She is currently on following medications: She is on cetirizine 10 mg once a day, azithromycin 250 mg once a day, ipratropium bromide albuterol sulfate 0.5 and 3 mg in 3 mL by nebulizer 4 times a day, tiotropium bromide for Spiriva HandiHaler 1 inhalation once a day, albuterol sulfate for Proventil 2 puffs 3 times a day, atorvastatin calcium 20 mg daily, aspirin 81 mg once a day, hydrocodone/APAP 10/325 one tablet 4 times a day as needed, Tylenol 650 mg every 6 hours, escitalopram oxalate 20 mg once a day, potassium chloride 20 mEq twice a day, fluticasone/salmeterol for Advair Diskus 500/50 one puff twice a day. She is on Singulair 10 mg once a day, Daliresp 500 mcg tablet once a day, Flonase 2 sprays to each nostril once a day; meclizine 12.5 mg, she takes 2 tablets 3 times a day; Protonix 40 mg once a day, estradiol 1 mg once a day, ascorbic acid 500 mg once a day, cholecalciferol 1000 international unit once a day. FAMILY HISTORY: Noncontributory. SOCIAL HISTORY: She is , has 3 sons who live close by. She is a nonsmoker, nondrinker. PHYSICAL EXAMINATION: GENERAL: On arrival to the Emergency Room this morning, she was clearly tachypneic, somewhat tachycardic, but there is no pallor, jaundice, cyanosis or thyromegaly. No jugular venous distention. No lower limb edema. VITAL SIGNS: Her heart rate was 75, blood pressure 156/69, temperature was 97.8, respiratory rate 24 and oxygen saturation was 94% on 1 liter of oxygen. HEAD, EYES, EARS, NOSE AND THROAT: Showed normocephalic, atraumatic. NECK: Supple. HEART: Showed normal first and second heart sounds. No gallop or murmur. CHEST: Shows central trachea. Equal bilateral expansion, air entry. Vesicular sounds with diffuse wheezing bilaterally. I could not appreciate any rhonchi. ABDOMEN: Distended, soft, nontender. NEUROLOGIC: She was awake, alert, responding appropriately. All cranial nerves intact. EXTREMITIES: She moves extremities without difficulty. She ambulates without assistance or assistive devices. LABORATORY DATA: Her lab work on admission showed a white cell count 9800, hemoglobin 11.3, hematocrit 35, MCV 94 and platelet count of 144,000 with a manual differential showed 34% polymorphs, 16% lymphocytes, 9% monocytes and 39% eosinophils. Her chemistry showed a serum sodium 144, potassium 3.7, chloride 107, bicarbonate 28, anion gap of 9, BUN 8, creatinine 1.4, estimated GFR was 36 mL per minute. Her glucose was 68, calcium was 8.2, magnesium was 1.8. Total bilirubin, AST, ALT, alkaline phosphatase were normal. CK was slightly elevated 221. Beta natriuretic peptide was 3128. Total protein was 5.4, albumin was 2.9. Lactic acid is only 1. ASSESSMENT AND PLAN: In summary, this is a 78-year-old female patient who was admitted with chronic obstructive pulmonary disease exacerbation and acute hypoxic respiratory failure, probably also congestive heart failure. Plan is to reconcile all her medication. Continue with intravenous steroids and inhalers and we will follow her closely. I will contact Dr. Thomas regarding her bone marrow biopsy and other lab work that were done there. JANE MORILLO MD DR: CONG/dilip JOB#: [id number] / [id number]
[2019-01-26 19:55] VITALS: BP 152/79
[2019-01-26] MEDS ORDERED: NON FORMULARY ITEM (Fluticasone/Salmeterol (Advair 500-50 Diskus) 1 PUFF) IH SCH (21:00)
[2019-01-26] MEDS ORDERED: POTASSIUM CHLORIDE 20 MEQ TABLET.ER. PO SCH (21:00)
[2019-01-26] MEDS: IPRATRPIUM/ALBUTEROL 0.5/2.5MG 3 ML NEBU. NEB SCH (21:04)
[2019-01-26] MEDS: BUDESONIDE 0.5 MG/2 ML NEBU NEB SCH (21:04)
[2019-01-26] MEDS: methylPREDNISolone SOD SUCC PF 40 MG/ML VIAL. IV SCH (21:34)
[2019-01-26] MEDS: MONTELUKAST 10 MG TABLET. PO SCH (21:34)
[2019-01-26 23:44] VITALS: BP 142/74
[2019-01-27] MEDS: IPRATRPIUM/ALBUTEROL 0.5/2.5MG 3 ML NEBU. NEB SCH ×4 (05:07→22:16)
[2019-01-27] MEDS: methylPREDNISolone SOD SUCC PF 40 MG/ML VIAL. IV SCH ×3 (05:15→21:31)
[2019-01-27 06:08] LABS: ALBUMIN 3.1 g/dL (3.4-5.0); C REACTIVE PROTEIN 8.4 mg/L (0-3.3); CALCIUM 8.5 mg/dL (8.5-10.1); CREATININE 1.6 mg/dL (0.6-1.0); GFR 31.3; POTASSIUM 3.5 mmol/L (3.5-5.1); TOTAL BILIRUBIN 0.4 mg/dL (0.2-1.0); TOTAL PROTEIN 6.1 g/dL (6.4-8.2)
[2019-01-27 06:12] LABS: BASO % 0 % (0-3); EOS % 0 % (0-3); HEMATOCRIT 36.6 % (36.0-47.0); HEMOGLOBIN 11.8 g/dL (12.0-15.5); LYMPH # 0.5 x10^3/uL (1.0-4.8); LYMPH % 5 % (24-48); MEAN CORPUSCULAR HEMOGLOBIN 31 pg (25-35); MEAN CORPUSCULAR HGB CONC 32 g/dL (31-37); MEAN CORPUSCULAR VOLUME 94 fL (79-100); MONO # 0.3 x10^3/uL (0.0-1.1); MONO % 3 % (0-9); NEUT # 7.8 x10^3uL (1.8-7.7); NEUT % 92 % (31-73); PLATELET COUNT 135 x10^3/uL (140-400); RED BLOOD COUNT 3.88 x10^6/uL (3.50-5.40); RED CELL DISTRIBUTION WIDTH 14.5 % (11.5-14.5); WHITE BLOOD COUNT 8.5 x10^3/uL (4.0-11.0)
[2019-01-27 06:18] VITALS: BP 125/80
[2019-01-27 06:55] LABS: % LYMPHS 7 % (24-48); % MONOS 2 % (0-10); % SEGS 91 % (35-66); PLT ESTIMATE DECREASED (ADEQUATE)
[2019-01-27 06:56] LABS: POLYCHROMASIA SLIGHT
[2019-01-27 07:29] LABS: SEDIMENTATION RATE 18 (0-25)
[2019-01-27] MEDS ORDERED: POTA20TA4 PO (08:02)
[2019-01-27] MEDS ORDERED: FURO40TA4 PO (08:02)
[2019-01-27] MEDS: CITALOPRAM 20 MG TABLET. PO SCH (08:54)
[2019-01-27] MEDS: PANTOPRAZOLE 40 MG TABLET. PO SCH (08:55)
[2019-01-27] MEDS: ASCORBIC ACID 500 MG TABLET PO SCH (08:55)
[2019-01-27] MEDS: ESTRADIOL 1 MG TABLET PO SCH (08:55)
[2019-01-27] MEDS: ROFLUMILAST 500 MCG TABLET PO SCH (08:55)
[2019-01-27] MEDS: ASPIRIN 81 MG TAB.CHEW PO SCH (08:55)
[2019-01-27] MEDS: CHOLECALCIFEROL (VITAMIN D3) 1,000 UNIT TABLET PO SCH (08:55)
[2019-01-27] MEDS: ATORVASTATIN CALCIUM 20 MG TABLET PO SCH (08:55)
[2019-01-27] MEDS: CETIRIZINE HCL 10 MG TABLET PO SCH (08:55)
[2019-01-27] MEDS ORDERED: FUROSEMIDE 80 MG TABLET PO SCH (09:00)
[2019-01-27] MEDS: POTASSIUM CHLORIDE 10 MEQ TABLET.ER. PO SCH ×2 (09:04→21:31)
[2019-01-27] MEDS: FLUTICASONE 50MCG/NASAL SPRAY 16GM BOTTLE. NS SCH (09:04)
[2019-01-27] MEDS: FUROSEMIDE 40 MG TABLET PO SCH (09:04)
[2019-01-27] MEDS: BUDESONIDE 0.5 MG/2 ML NEBU NEB SCH ×2 (09:29→22:16)
[2019-01-27 10:36] VITALS: BP 154/70
[2019-01-27 14:45] VITALS: BP 158/77
[2019-01-27 20:09] VITALS: BP 147/70
--- NOTE | 2019-01-27 20:20 | PN ---
DATE: 01/27/2019 SUBJECTIVE: The patient is resting slightly propped up in bed, no apparent distress. She has definitely much improved. She is not a tripod position or using her accessory muscles. She obviously continued to have some chest tightness and wheezing and has not slept well last night probably because of steroids. At home, she uses Aleve PM, she takes 2 tablets at nighttime for sleep. PHYSICAL EXAMINATION: GENERAL: When I examined her this afternoon, she looked well and was clearly in no apparent respiratory distress, slightly pale, but no jaundice, cyanosis, or thyromegaly. No jugular venous distension. No lower limb edema. VITAL SIGNS: Her heart rate was 110, blood pressure 154/70, temperature was 98.2, respiratory rate was 24 and oxygen saturation was 96% on 2 liters of oxygen. HEAD, EYES, EARS, NOSE AND THROAT: Showed normocephalic, atraumatic. NECK: Supple. HEART: Showed normal first and second heart sounds. No gallop or murmur. CHEST: Clear to auscultation. No crepitation or rhonchi. Chest shows central trachea. Equal chest expansion, air entry. Vesicular sounds with bilateral scattered wheezing. I could not appreciate any crepitation. ABDOMEN: Distended, soft, nontender. NEUROLOGIC: She is awake, alert, responding appropriately. All cranial nerves intact. She moves extremities without difficulty. She ambulates without assistance or assistive devices. Her intake over the last 24 hours and output incompletely recorded. LABORATORY DATA: Her lab work this morning showed a white cell count of 8500, hemoglobin 11.8, hematocrit 37, MCV 94, platelet count of 135,000 with a manual differential showed 92% polymorphs, 5% lymphocytes, and eosinophils. Her serum sodium was 142, potassium 3.5, chloride 104, bicarbonate 25, anion gap 13, BUN 11, creatinine 1.6, estimated GFR was 31 mL per minute. Her glucose , calcium was 8.5. Total bilirubin, AST, ALT, alkaline phosphatase were normal. C-reactive protein was 8.4 mg/dL, total protein 6.1 and albumin was 3.1. Her sedimentation rate was only 18 mm per hour. ASSESSMENT: 1. Acute hypoxic respiratory failure. 2. Chronic obstructive pulmonary disease exacerbation. 3. Acute severe asthma with severe eosinophilia. 4. Atrial fibrillation, rate controlled. 5. Chronic anemia. 6. Gastroesophageal reflux disease. 7. Hyperlipidemia. 8. Hypertension. 9. Hypothyroidism. 10. Chronic kidney disease. PLAN: To continue with current plan of management. I will add trazodone for insomnia. We will cut her steroids tomorrow and await the result of the bone marrow. JANE MORILLO MD DR: CONG/dilip JOB#: [id number] / [id number]
[2019-01-27] MEDS: MONTELUKAST 10 MG TABLET. PO SCH (21:31)
[2019-01-27] MEDS: traZODone 50 MG TABLET. PO SCH (21:31)
[2019-01-27 23:00] VITALS: BP 119/71
[2019-01-28] MEDS: methylPREDNISolone SOD SUCC PF 40 MG/ML VIAL. IV SCH ×2 (05:29→13:23)
[2019-01-28] MEDS: IPRATRPIUM/ALBUTEROL 0.5/2.5MG 3 ML NEBU. NEB SCH ×4 (05:43→20:10)
[2019-01-28 06:17] VITALS: BP 134/71
[2019-01-28] MEDS: CETIRIZINE HCL 10 MG TABLET PO SCH (08:17)
[2019-01-28] MEDS: ASCORBIC ACID 500 MG TABLET PO SCH (08:17)
[2019-01-28] MEDS: CITALOPRAM 20 MG TABLET. PO SCH (08:17)
[2019-01-28] MEDS: POTASSIUM CHLORIDE 10 MEQ TABLET.ER. PO SCH ×2 (08:18→21:48)
[2019-01-28] MEDS: PANTOPRAZOLE 40 MG TABLET. PO SCH (08:18)
[2019-01-28] MEDS: FUROSEMIDE 40 MG TABLET PO SCH (08:18)
[2019-01-28] MEDS: ROFLUMILAST 500 MCG TABLET PO SCH (08:18)
[2019-01-28] MEDS: ATORVASTATIN CALCIUM 20 MG TABLET PO SCH (08:19)
[2019-01-28] MEDS: FLUTICASONE 50MCG/NASAL SPRAY 16GM BOTTLE. NS SCH (08:19)
[2019-01-28] MEDS: ASPIRIN 81 MG TAB.CHEW PO SCH (08:19)
[2019-01-28] MEDS: CHOLECALCIFEROL (VITAMIN D3) 1,000 UNIT TABLET PO SCH (08:19)
[2019-01-28] MEDS: ESTRADIOL 1 MG TABLET PO SCH (08:19)
[2019-01-28] MEDS: BUDESONIDE 0.5 MG/2 ML NEBU NEB SCH ×2 (09:01→20:10)
[2019-01-28 10:50] VITALS: BP 131/77
[2019-01-28 15:40] VITALS: BP 137/83
[2019-01-28 19:43] VITALS: BP 135/60
[2019-01-28] MEDS: traZODone 50 MG TABLET. PO SCH (21:47)
[2019-01-28] MEDS: MONTELUKAST 10 MG TABLET. PO SCH (21:47)
[2019-01-28] MEDS ORDERED: methylPREDNISolone SOD SUCC PF 40 MG/ML VIAL. IV SCH (22:00)
[2019-01-28 22:25] VITALS: BP 134/67
--- NOTE | 2019-01-29 00:28 | PN ---
DATE: 01/28/2019 SUBJECTIVE: The patient is resting, almost flat in bed, in no apparent distress. She is awake, alert, continued to have cough with chest tightness, although much improved. PHYSICAL EXAMINATION: GENERAL: When I examined her, she looked pale, no jaundice, cyanosis or thyromegaly. No jugular venous distention. No limb edema. VITAL SIGNS: Her heart rate was 93, blood pressure was 131/77, temperature was 97.9, respiratory rate was 18 and oxygen saturation was 96% on 2 liters of oxygen. HEAD, EYES, EARS, NOSE AND THROAT: Showed normocephalic, atraumatic. NECK: Supple. HEART: Showed normal first and second heart sounds. No gallop or murmur. CHEST: Shows central trachea, equal bilateral expansion, air entry, vesicular sounds with bilateral scattered rhonchi both sides. I could not appreciate any crepitation. Definitely much improved, although she continued to have chest tightness and wheezing and cough. ABDOMEN: Distended, soft, nontender. NEUROLOGIC: She is awake, alert, responding appropriately. All cranial nerves intact. She moves extremities without difficulty. She ambulates without assistance. Her intake and output are incompletely recorded. LABORATORY DATA: Showed a white cell count of 8500, hemoglobin 11.8, hematocrit 36, MCV 94 and platelet count of 135,000. Her serum sodium 142, potassium 3.5, chloride 104, bicarbonate 25, anion gap of 13, BUN 11, creatinine 1.6, estimated GFR was 31 mL per minute. Her glucose 188, calcium was 8.5. Total bilirubin, AST, ALT, alkaline phosphatase were normal. Total protein 6.1, albumin was 3.1. Urinalysis was unremarkable and influenza A and B were negative. ASSESSMENT: 1. Acute hypoxic respiratory failure, improving. 2. Chronic obstructive pulmonary disease exacerbation. 3. Acute severe asthma with severe eosinophilia. 4. Atrial fibrillation, rate controlled. 5. Chronic anemia. 6. Gastroesophageal reflux disease. 7. Hyperlipidemia. 8. Hypertension. 9. Hypothyroidism. 10. Chronic kidney disease. PLAN: To cut down her steroids to twice a day today and tomorrow, will be switched to oral prednisone and hopefully discharge her home to continue with tapering course of steroids. JANE MORILLO MD DR: CONG/dilip JOB#: [id number] / [id number]
[2019-01-29 05:00] VITALS: BP 151/75
[2019-01-29] MEDS: IPRATRPIUM/ALBUTEROL 0.5/2.5MG 3 ML NEBU. NEB SCH ×2 (05:39→09:49)
[2019-01-29 07:47] LABS: HEMATOCRIT 32.4 % (36.0-47.0); HEMOGLOBIN 10.4 g/dL (12.0-15.5); RED BLOOD COUNT 3.45 x10^6/uL (3.50-5.40); RED CELL DISTRIBUTION WIDTH 14.6 % (11.5-14.5); WHITE BLOOD COUNT 17.5 x10^3/uL (4.0-11.0)
[2019-01-29 07:50] LABS: ALBUMIN 2.7 g/dL (3.4-5.0); ALBUMIN/GLOBULIN RATIO 1.1 (1.0-1.7); CALCIUM 8.2 mg/dL (8.5-10.1); CREATININE 1.4 mg/dL (0.6-1.0); GFR 36.5; POTASSIUM 3.9 mmol/L (3.5-5.1); TOTAL BILIRUBIN 0.4 mg/dL (0.2-1.0); TOTAL PROTEIN 5.2 g/dL (6.4-8.2)
[2019-01-29] MEDS: CHOLECALCIFEROL (VITAMIN D3) 1,000 UNIT TABLET PO SCH (09:00)
[2019-01-29] MEDS ORDERED: predniSONE 20 MG TABLET PO SCH (09:00)
[2019-01-29] MEDS: ROFLUMILAST 500 MCG TABLET PO SCH (09:12)
[2019-01-29] MEDS: POTASSIUM CHLORIDE 10 MEQ TABLET.ER. PO SCH (09:12)
[2019-01-29] MEDS: ATORVASTATIN CALCIUM 20 MG TABLET PO SCH (09:13)
[2019-01-29] MEDS: FUROSEMIDE 40 MG TABLET PO SCH (09:13)
[2019-01-29] MEDS: PANTOPRAZOLE 40 MG TABLET. PO SCH (09:13)
[2019-01-29] MEDS: CITALOPRAM 20 MG TABLET. PO SCH (09:13)
[2019-01-29] MEDS: ESTRADIOL 1 MG TABLET PO SCH (09:13)
[2019-01-29] MEDS: ASPIRIN 81 MG TAB.CHEW PO SCH (09:14)
[2019-01-29] MEDS: ASCORBIC ACID 500 MG TABLET PO SCH (09:14)
[2019-01-29] MEDS: FLUTICASONE 50MCG/NASAL SPRAY 16GM BOTTLE. NS SCH (09:20)
[2019-01-29] MEDS: CETIRIZINE HCL 10 MG TABLET PO SCH (09:23)
[2019-01-29] MEDS: BUDESONIDE 0.5 MG/2 ML NEBU NEB SCH (09:49)
[2019-01-29 10:35] VITALS: BP 148/77
[2019-01-29] MEDS ORDERED: HEPARIN PF 500 UNIT/5 ML DISP.SYRIN. IVP ONE (13:00)
--- NOTE | 2019-01-29 17:30 | DS ---
DATE OF DISCHARGE: 01/29/2019 HOSPITAL COURSE: The patient is a 78-year-old female patient who was admitted with acute hypoxic respiratory failure, acute COPD exacerbation versus severe bronchial asthma or asthmatic bronchitis. The patient was extremely tachypneic, using her accessory muscles, severe chest tightness and wheezing. She was started on IV Solu-Medrol together with nebulized treatment and she did actually extremely well. Her eosinophil count on arrival was 39% and after treatment with steroids the eosinophilia disappeared completely from her circulation. PHYSICAL EXAMINATION: GENERAL: When I saw her today, she was resting, almost flat in bed, in no apparent distress. She has been pale, but no jaundice, cyanosis or thyromegaly, lower extremity edema. VITAL SIGNS: Her heart rate was 105, blood pressure was 148/77, temperature was 97.8, respiratory rate was 20 and oxygen saturation was 94% on 2 liters of oxygen. HEAD, EYES, EARS, NOSE AND THROAT: Showed normocephalic, atraumatic. NECK: Supple. HEART: Showed normal first and second heart sounds. No gallop or murmur. CHEST: Shows central trachea, equal bilateral expansion, air entry, vesicular sounds could hardly hear any wheezing. ABDOMEN: Distended, soft, nontender. NEUROLOGIC: She is awake, alert, responding appropriately. All cranial nerves intact. She moves extremities without difficulty. Her intake and output are incompletely recorded. LABORATORY DATA: Today showed white cell count 17,500, hemoglobin 10, hematocrit 32, MCV 94 and platelet count of 132,000. Her chemistry showed serum sodium 145, potassium 3.9, chloride 109, bicarbonate 30, anion gap of 6, BUN 18, creatinine 1.4, estimated GFR was 36 mL per minute. Her glucose was 99, calcium was 8.2. Total bilirubin, AST, ALT, alkaline phosphatase were normal. Total protein was 5.2, albumin was 2.7. Her influenza A and B were negative. Urinalysis was unremarkable. DISCHARGE MEDICATIONS: The patient was discharged home to continue on tapering course of steroids in the form prednisone 40 mg once a day for 2 days, 30 mg once a day for 3 days, 20 mg once a day for 3 days and 10 mg once a day for 3 days. She should continue also on Tylenol 500 mg every 6 hours, albuterol sulfate 2 puffs 3 times a day, ascorbic acid 500 mg once a day, aspirin 81 mg once a day, atorvastatin calcium 20 mg once a day, cetirizine for Zyrtec 10 mg once a day, ergocalciferol 2000 units once a day, escitalopram oxalate 20 mg once a day, estradiol 1 mg daily, fluticasone propionate for Flonase 2 sprays to each nostril once a day, Advair Diskus 500/50 one puff twice a day, furosemide 40 mg once a day, hydrocodone/APAP 10/325 one tablet 4 times a day as needed, ipratropium bromide and albuterol sulfate for DuoNeb by nebulizer 4 times a day, meclizine 25 mg 3 times a day, Singulair 10 mg at bedtime, Protonix 40 mg once a day, potassium chloride for Klor-Con she takes 30 mEq twice a day, Daliresp 500 mcg once a day and tiotropium bromide for Spiriva HandiHaler 1 inhalation once a day. FINAL DISCHARGE DIAGNOSES: 1. Acute hypoxic respiratory failure, much improved. 2. Chronic obstructive pulmonary disease exacerbation. 3. Acute severe asthma with severe eosinophilia, improved. 4. Atrial fibrillation, rate controlled. 5. Chronic anemia. 6. Gastroesophageal reflux disease. 7. Hyperlipidemia. 8. Hypertension. 9. Hypothyroidism. 10. Chronic kidney disease with [id number], that has improved. She is back to her baseline of creatinine 1.2. The patient was advised to follow with Dr. Rocío Thomas for her bone marrow results for her systemic eosinophilia and follow with Dr. Sherman as arranged. JANE MORILLO MD DR: CONG/dilip JOB#: [id number] / [id number]
--- NOTE | 2019-02-01 07:52 | EKG ---
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
--- NOTE | 2019-02-08 07:05 | EKG ---
[address] [address] Test Date: 2019-01-28 Test Time: 14:25:40 Pat Name: DYLAN JACKSON Department: Room: 103 A Gender: F Rat Exterminator: : 1940 Requested By: JANE MORILLO Order Number: [id number] Reading MD: Measurements Intervals [place] Rate: 101 P: [place]: QRS: -9 QRSD: 74 T: 42 QT: 366 QTc: 475 Interpretive Statements IRREGULAR RHYTHM, NO P-WAVE FOUND LEFTWARD AXIS NO SPECIFIC ECG ABNORMALITIES RI6.02 No previous ECG available for comparison
== END 2019-01-29 13:15 | disposition home or self-care (01) | DRG 682 ==
LOC: ER 11:32 → 1 SOUTH 13:00
PROVIDERS: ADMIT Internal Medicine; ATTEND Internal Medicine
DX: N17.0 Acute kidney failure with tubular necrosis (principal); J96.01 Acute respiratory failure with hypoxia; J44.1 Chronic obstructive pulmonary disease with (acute) exacerbation; I13.0 Hypertensive heart and chronic kidney disease with heart failure and stage 1 through stage 4 chronic kidney disease, or unspecified chronic kidney disease; I50.9 Heart failure, unspecified; D64.9 Anemia, unspecified; D72.1 Eosinophilia; E03.9 Hypothyroidism, unspecified; E78.5 Hyperlipidemia, unspecified; I48.91 Unspecified atrial fibrillation; K21.9 Gastro-esophageal reflux disease without esophagitis; N18.9 Chronic kidney disease, unspecified; Z87.440 Personal history of urinary (tract) infections; Z90.710 Acquired absence of both cervix and uterus; Z96.653 Presence of artificial knee joint, bilateral; Z98.41 Cataract extraction status, right eye; Z98.42 Cataract extraction status, left eye; Z90.49 Acquired absence of other specified parts of digestive tract; Z88.8 Allergy status to other drugs, medicaments and biological substances
CPT/HCPCS: 36415; 71045; 80053; 81001; 82553; 83605; 83735; 83880; 84484; 85007; 85025; 85027; 85651; 86140; 87804; 93005; 94640; 94760; 96374; J1100; J2920; J7512; J7613; J7620; J7626; 99291-25

== ENCOUNTER 2019-04-04 12:01 | Emergency (ER) | payer MEDICARE, BC ==
[~2019-04-04] VITALS: Ht 157.5 cm; Wt 72.1 kg
[~2019-04-04 12:01] MED LIST changes: +ASPI-630 PO; -CETI10TA22 PO; +CETI10TA24 PO; +FURO40TA4 PO; +FURO80TA72 PO; +MECL-75 PO; -MECL12.52 PO; +MECL12.573 PO; -MECL25TA3 PO; +ONDA-84 PO; -ONDA4TAB11 PO; +[UNRECOGNIZED DRUG - CODE] PO
[2019-04-04 12:13] VITALS: BP 156/80
[2019-04-04 12:54] LABS: BASO # 0.1 x10^3/uL (0.0-0.2); BASO % 1 % (0-3); EOS # 1.2 x10^3/uL (0.0-0.7); EOS % 20 % (0-3); HEMATOCRIT 35.1 % (36.0-47.0); HEMOGLOBIN 11.2 g/dL (12.0-15.5); LYMPH # 1.1 x10^3/uL (1.0-4.8); LYMPH % 19 % (24-48); MEAN CORPUSCULAR HEMOGLOBIN 30 pg (25-35); MEAN CORPUSCULAR HGB CONC 32 g/dL (31-37); MEAN CORPUSCULAR VOLUME 93 fL (79-100); MONO # 0.6 x10^3/uL (0.0-1.1); MONO % 10 % (0-9); NEUT # 2.9 x10^3uL (1.8-7.7); NEUT % 50 % (31-73); PLATELET COUNT 131 x10^3/uL (140-400); RED BLOOD COUNT 3.76 x10^6/uL (3.50-5.40); RED CELL DISTRIBUTION WIDTH 17.2 % (11.5-14.5); WHITE BLOOD COUNT 5.9 x10^3/uL (4.0-11.0)
[2019-04-04 13:01] LABS: CALCIUM 8.2 mg/dL (8.5-10.1); CREATININE 1.4 mg/dL (0.6-1.0); GFR 36.5; POTASSIUM 3.7 mmol/L (3.5-5.1)
[2019-04-04 13:07] LABS: ALBUMIN 2.6 g/dL (3.4-5.0); TOTAL BILIRUBIN 0.4 mg/dL (0.2-1.0); TOTAL PROTEIN 5.3 g/dL (6.4-8.2)
--- NOTE | 2019-04-04 13:21 | RAD ---
CT HEAD AND CERVICAL SPINE WO Date: 04/04/2019 12:17 PM Clinical Indication: Headache, pain Comparison: 07/10/2017. Technique: 5 mm axial tomographic images were obtained of the head without contrast. These were viewed on brain and bone windows. Noncontrast CT of the cervical spine was performed. Sagittal and coronal reformats were performed and evaluated. One or more of the following dose reduction techniques were utilized: Automated exposure control (AEC), Adjustment of mA and/or kV according to patient size, Use of iterative reconstruction technique such as ASiR, CT scan done according to ALARA and image gently/image wisely HEAD FINDINGS: Mild generalized cerebral and cerebellar volume loss. Mild nonspecific periventricular hypoattenuation, most commonly seen with chronic small vessel ischemic disease. No intra- or extra-axial mass or fluid collection. No acute hemorrhage. The ventricles are normal in size, shape, and morphology. The tyson-white matter junction is normal. The basilar cisterns are patent. Mild bilateral maxillary sinus disease. The visualized portions of the orbits and globes are normal. The mastoid air cells are clear. No aggressive osseous lesion or fracture. CERVICAL SPINE FINDINGS: Straightening of the cervical lordosis. No acute fracture. No aggressive lytic or blastic osseous lesions. Moderate multilevel degenerative disc space height loss. Multilevel mild and moderate spinal canal stenosis secondary to disc protrusions and marginal osteophytes. Multilevel moderate neuroforaminal narrowing secondary to uncovertebral arthrosis. Multilevel moderate facet arthrosis. The thyroid gland is normal. No cervical lymphadenopathy. The visualized aerodigestive tract is normal. The visualized portions of the lungs are clear. IMPRESSION: 1. No acute intracranial process. 2. No acute cervical spine fracture. Electronically signed by: Vidal Majano MD (04/04/2019 1:18 PM) [id number]
--- NOTE | 2019-04-04 14:34 | PHYS DOC ---
Past History Past Medical History: Cancer, COPD, Hypertension, Hypothyroid, Other Additional Past Medical Histor: stomach ulcers Past Surgical History: Cholecystectomy, , Hysterectomy Smoking: Non-smoker Alcohol Use: None Drug Use: None Adult General Chief Complaint Chief Complaint: HEADACHE HPI HPI 78-year-old female presents with right-sided head and neck pain. She states it feels like a throbbing sensation in the posterior right side of her scalp. This headache is been there is some all for almost 2 weeks. Patient has not had h eadaches like this in the past. He is currently a 5 out of 10. She has been putting a heating pad on it daily which seems to help. She has taken several Tylenol which has not helped. She is concerned about this headache because her mother had a major stroke at her age leaving her partially paralyzed. Patient denies fever or chills. Review of Systems Review of Systems Constitutional: Denies fever or chills [] Eyes: Denies change in visual acuity, redness, or eye pain [] HENT: Denies nasal congestion or sore throat [] Respiratory: Denies cough or shortness of breath [] Cardiovascular: No additional information not addressed in HPI [] GI: Denies abdominal pain, nausea, vomiting, bloody stools or diarrhea [] : Denies dysuria or hematuria [] Musculoskeletal: Denies back pain or joint pain [] Integument: Denies rash or skin lesions [] Neurologic: Denies focal weakness or sensory changes [] Endocrine: Denies polyuria or polydipsia [] All other systems were reviewed and found to be within normal limits, except as documented in this note. Allergies Allergies Allergies Coded Allergies Type Severity Reaction Last Updated Verified Tetracyclines Allergy Intermediate Unknown 03/04/15 Yes adhesive Allergy Intermediate 03/04/15 Yes amoxicillin Allergy Intermediate tingling sensation all over 10/26/15 Yes cefotaxime Allergy Intermediate 03/04/15 Yes ciprofloxacin Allergy Intermediate 12/02/16 Yes clavulanic acid Allergy Intermediate tingling sensation all over 10/26/15 Yes clindamycin Allergy Intermediate 03/04/15 Yes tramadol Allergy Intermediate 12/02/16 Yes vancomycin Allergy Intermediate 03/04/15 Yes dexamethasone Adverse Reaction Mild 01/26/19 Yes Physical Exam Physical Exam Constitutional: Well developed, well nourished, no acute distress, non-toxic appearance. [] HENT: Normocephalic, atraumatic, bilateral external ears normal, oropharynx moist, no oral exudates, nose normal. [] Eyes: PERRLA, EOMI, conjunctiva normal, no discharge. [] Neck: Normal range of motion, no tenderness, supple, no stridor. [] Cardiovascular:Heart rate regular rhythm, no murmur [] Lungs & Thorax: Bilateral breath sounds clear to auscultation [] Abdomen: Bowel sounds normal, soft, no tenderness, no masses, no pulsatile masses. [] Skin: Warm, dry, no erythema, no rash. [] Back: No tenderness, no CVA tenderness. [] Extremities: No tenderness, no cyanosis, no clubbing, ROM intact, no edema. [] Neurologic: Alert and oriented X 3, normal motor function, normal sensory function, no focal deficits noted. [] Psychologic: Affect normal, judgement normal, mood normal. [] Current Patient Data Vital Signs Vital Signs Date Time Temp Pulse Resp B/P (MAP) Pulse Ox O2 Delivery O2 Flow Rate FiO2 04/04/19 12:13 116 18 156/80 (105) 96 Room Air Lab Results Laboratory Tests Test 04/04/19 12:36 White Blood Count 5.9 x10^3/uL (4.0-11.0) Red Blood Count 3.76 x10^6/uL (3.50-5.40) Hemoglobin 11.2 g/dL (12.0-15.5) L Hematocrit 35.1 % (36.0-47.0) L Mean Corpuscular Volume 93 fL (79-100) Mean Corpuscular Hemoglobin 30 pg (25-35) Mean Corpuscular Hemoglobin Concent 32 g/dL (31-37) Red Cell Distribution Width 17.2 % (11.5-14.5) H Platelet Count 131 x10^3/uL (140-400) L Neutrophils (%) (Auto) 50 % (31-73) Lymphocytes (%) (Auto) 19 % (24-48) L Monocytes (%) (Auto) 10 % (0-9) H Eosinophils (%) (Auto) 20 % (0-3) H Basophils (%) (Auto) 1 % (0-3) Neutrophils # (Auto) 2.9 x10^3uL (1.8-7.7) Lymphocytes # (Auto) 1.1 x10^3/uL (1.0-4.8) Monocytes # (Auto) 0.6 x10^3/uL (0.0-1.1) Eosinophils # (Auto) 1.2 x10^3/uL (0.0-0.7) H Basophils # (Auto) 0.1 x10^3/uL (0.0-0.2) Sodium Level 142 mmol/L (136-145) Potassium Level 3.7 mmol/L (3.5-5.1) Chloride Level 108 mmol/L (98-107) H Carbon Dioxide Level 29 mmol/L (21-32) Anion Gap 5 (6-14) L Blood Urea Nitrogen 9 mg/dL (7-20) Creatinine 1.4 mg/dL (0.6-1.0) H Estimated GFR (Cockcroft-Gault) 36.5 BUN/Creatinine Ratio 6 (6-20) Glucose Level 129 mg/dL (70-99) H Calcium Level 8.2 mg/dL (8.5-10.1) L Total Bilirubin 0.4 mg/dL (0.2-1.0) Aspartate Amino Transferase (AST) 32 U/L (15-37) Alanine Aminotransferase (ALT) 24 U/L (14-59) Alkaline Phosphatase 93 U/L (46-116) Total Protein 5.3 g/dL (6.4-8.2) L Albumin 2.6 g/dL (3.4-5.0) L Albumin/Globulin Ratio 1.0 (1.0-1.7) EKG EKG [] Radiology/Procedures Radiology/Procedures [] Impressions: CT HEAD AND CERVICAL SPINE WO Date: 04/04/2019 12:17 PM Clinical Indication: Headache, pain Comparison: 07/10/2017. Technique: 5 mm axial tomographic images were obtained of the head without contrast. These were viewed on brain and bone windows. Noncontrast CT of the cervical spine was performed. Sagittal and coronal reformats were performed and evaluated. One or more of the following dose reduction techniques were utilized: Automated exposure control (AEC), Adjustment of mA and/or kV according to patient size, Use of iterative reconstruction technique such as ASiR, CT scan done according to ALARA and image gently/image wisely HEAD FINDINGS: Mild generalized cerebral and cerebellar volume loss. Mild nonspecific periventricular hypoattenuation, most commonly seen with chronic small vessel ischemic disease. No intra- or extra-axial mass or fluid collection. No acute hemorrhage. The ventricles are normal in size, shape, and morphology. The tyson-white matter junction is normal. The basilar cisterns are patent. Mild bilateral maxillary sinus disease. The visualized portions of the orbits and globes are normal. The mastoid air cells are clear. No aggressive osseous lesion or fracture. CERVICAL SPINE FINDINGS: Straightening of the cervical lordosis. No acute fracture. No aggressive lytic or blastic osseous lesions. Moderate multilevel degenerative disc space height loss. Multilevel mild and moderate spinal canal stenosis secondary to disc protrusions and marginal osteophytes. Multilevel moderate neuroforaminal narrowing secondary to uncovertebral arthrosis. Multilevel moderate facet arthrosis. The thyroid gland is normal. No cervical lymphadenopathy. The visualized aerodigestive tract is normal. The visualized portions of the lungs are clear. IMPRESSION: 1. No acute intracranial process. 2. No acute cervical spine fracture. Electronically signed by: Cisco Majano MD (04/04/2019 1:18 PM) [facility] DICTATED AND SIGNED BY: CISCO MAJANO MD DATE: 04/04/19 1318 CC: JANNET ALONSO DO; ZAIDA BOBBY MD ~ Course & Med Decision Making Course & Med Decision Making Pertinent Labs and Imaging studies reviewed. (See chart for details) The patient's labs are unremarkable. Her head and cervical spine CTs are negative for acute findings. I will treat for her headache. I have given her 1 L normal saline, 5 mg Reglan, 15 mg of Toradol, 25 mg of Benadryl. The patient's headache has improved. She is stable for discharge at this time [] Dragon Disclaimer Dragon Disclaimer This electronic medical record was generated, in whole or in part, using a voice recognition dictation system. Departure Departure: Impression: Primary Impression: Headache Disposition: HOME, SELF-CARE Condition: IMPROVED Referrals: ZAIDA BOBBY MD (PCP) Patient Instructions: General Headache Without Cause, [id number] Problem Qualifiers Primary Impression: Headache Headache type: tension-type Headache chronicity pattern: acute headache Intractability: intractable Qualified Codes: G44.201 - Tension-type headache, unspecified, intractable JANNET ALONSO 27, 2020 14:34
[2019-04-04] MEDS ORDERED: METOCLOPRAMIDE HCL 10 MG/2 ML VIAL. IVP ONE (14:45)
[2019-04-04] MEDS ORDERED: diphenhydrAMINE 50 MG/ML VIAL IVP ONE (14:45)
[2019-04-04] MEDS ORDERED: KETOROLAC 15 MG/ML VIAL. IVP ONE (14:45)
[2019-04-04] MEDS ORDERED: IV NORMAL SALINE 1,000ML 1,000 ML IV ONE (14:45)
[2019-04-04 16:21] LABS: BILIRUBIN,URINE NEG (NEG); CLARITY,URINE CLEAR; COLOR,URINE STRAW; GLUCOSE,URINE NEG (NEG)
[2019-04-04 16:22] LABS: BACTERIA,URINE 0 /HPF (0-FEW); NITRITE,URINE NEG (NEG); SQUAMOUS EPITHELIAL CELL,UR FEW /LPF; UROBILINOGEN,URINE 0.2 mg/dL (0.2 mg/dL); YEAST,URINE PRESENT /HPF
== END 2019-04-04 16:45 | disposition home or self-care (01) ==
LOC: ER 12:01
DX: G44.201 Tension-type headache, unspecified, intractable (principal); M54.2 Cervicalgia; J44.9 Chronic obstructive pulmonary disease, unspecified; I10 Essential (primary) hypertension; E03.9 Hypothyroidism, unspecified; Z88.1 Allergy status to other antibiotic agents; Z88.6 Allergy status to analgesic agent; Z88.8 Allergy status to other drugs, medicaments and biological substances
CPT/HCPCS: 36415; 70450; 72125; 80053; 81001; 85025; 96374; 96375; 99285; J1200; J1885; J2765; J7030

== ENCOUNTER 2019-05-13 19:11 | Emergency (ER) | payer MEDICARE, BC ==
[~2019-05-13] VITALS: Ht 157.5 cm; Wt 63.9 kg
[2019-05-13] MEDS ORDERED: IV NORMAL SALINE 1,000ML 1,000 ML IV ONE (19:45)
--- NOTE | 2019-05-13 19:48 | PHYS DOC ---
Past History Past Medical History: Cancer, COPD, Hypertension, Hypothyroid, Other Additional Past Medical Histor: stomach ulcers Past Surgical History: Cholecystectomy, , Hysterectomy Smoking: Non-smoker Alcohol Use: None Drug Use: None Adult General Chief Complaint Chief Complaint: GI PROBLEM [facility] HPI Patient is a 78-year-old female with past medical history sitting for gastric ulcers presents secondary to concern for upper GI bleed. She states she has had dark tarry stools with diarrhea 2 days ago, yesterday was normal, and today she had dark tarry stools again with some bright red blood mixed in. She states that she has been at within the past month and received a couple units of blood secondary to gastric ulcer bleeding and she had cauterization done on 1 ulcer and clipping on another. She denies abdominal pain, nausea or vomiting. Review of Systems Review of Systems All other ROS is negative unless otherwise stated in HPI Allergies Allergies Allergies Coded Allergies Type Severity Reaction Last Updated Verified Tetracyclines Allergy Intermediate Unknown 03/04/15 Yes adhesive Allergy Intermediate 03/04/15 Yes amoxicillin Allergy Intermediate tingling sensation all over 10/26/15 Yes cefotaxime Allergy Intermediate 03/04/15 Yes ciprofloxacin Allergy Intermediate 12/02/16 Yes clavulanic acid Allergy Intermediate tingling sensation all over 10/26/15 Yes clindamycin Allergy Intermediate 03/04/15 Yes tramadol Allergy Intermediate 12/02/16 Yes vancomycin Allergy Intermediate 03/04/15 Yes dexamethasone Adverse Reaction Mild 01/26/19 Yes Physical Exam Physical Exam See above Constitutional: Well developed, well nourished, no acute distress, non-toxic appearance. [] HENT: Normocephalic, atraumatic, bilateral external ears normal, oropharynx moist, no oral exudates, nose normal. [] Eyes: PERRLA, EOMI, conjunctiva normal, no discharge. [] Neck: Normal range of motion, no tenderness, supple, no stridor. [] Cardiovascular:Heart rate regular rhythm, no murmur [] Lungs & Thorax: Bilateral breath sounds clear to auscultation [] Abdomen: Bowel sounds normal, soft, no tenderness, no masses, no pulsatile masses. Rectal examination revealed the presence of external hemorrhoids with no active bleeding and normal rectal tone. Skin: Warm, dry, no erythema, no rash. [] Back: No tenderness, no CVA tenderness. [] Extremities: No tenderness, no cyanosis, no clubbing, ROM intact, no edema. [] Neurologic: Alert and oriented X 3, normal motor function, normal sensory function, no focal deficits noted. [] Psychologic: Affect normal, judgement normal, mood normal. [] EKG EKG [] Radiology/Procedures Radiology/Procedures [] Course & Med Decision Making Course & Med Decision Making Pertinent Labs and Imaging studies reviewed. (See chart for details) 1946: Patient seen for concern for GI bleed. We'll check labs including type and screen and send Hemoccult and give IV fluids. 2104: Patient's workup is completed this time and her labs are stable. Her vital signs remained stable as well. At this point I discussed with her that I do not feel as though she needs to come into the hospital tonight for observation as her labs and vital signs are stable. I did recommend that she continue to monitor her stools and if they seem to worsening she should return to the ER. Patient voices understanding and is stable for discharge. We'll finish IV fluids and DC Dragon Disclaimer Dragon Disclaimer This electronic medical record was generated, in whole or in part, using a voice recognition dictation system. Departure Departure: Impression: Primary Impression: History of upper gastrointestinal bleeding Additional Impression: Dark stools Disposition: 01 HOME, SELF-CARE Condition: STABLE Referrals: ZAIDA BOBBY MD (PCP) Follow up in 3-5 days for reevaluation Patient Instructions: Peptic Ulcer Disease Additional Instructions: Please return to the ER if your symptoms worsen Problem Qualifiers KATI WALLACE DO May 13, 2019 19:48
[2019-05-13 20:25] LABS: BASO % 0 % (0-3); EOS % 0 % (0-3); HEMATOCRIT 33.3 % (36.0-47.0); HEMOGLOBIN 10.9 g/dL (12.0-15.5); LYMPH # 0.5 x10^3/uL (1.0-4.8); LYMPH % 10 % (24-48); MEAN CORPUSCULAR HEMOGLOBIN 30 pg (25-35); MEAN CORPUSCULAR HGB CONC 33 g/dL (31-37); MEAN CORPUSCULAR VOLUME 93 fL (79-100); MONO # 0.4 x10^3/uL (0.0-1.1); MONO % 6 % (0-9); NEUT # 4.8 x10^3uL (1.8-7.7); NEUT % 84 % (31-73); PLATELET COUNT 137 x10^3/uL (140-400); RED BLOOD COUNT 3.59 x10^6/uL (3.50-5.40); WHITE BLOOD COUNT 5.8 x10^3/uL (4.0-11.0)
[2019-05-13 20:31] LABS: CALCIUM 8.4 mg/dL (8.5-10.1); CREATININE 1.5 mg/dL (0.6-1.0); GFR 33.7; POTASSIUM 3.8 mmol/L (3.5-5.1)
[2019-05-13 20:34] LABS: FECAL OB PT NEGATIVE (NEG)
[2019-05-13 20:37] LABS: ALBUMIN 2.9 g/dL (3.4-5.0); TOTAL BILIRUBIN 0.3 mg/dL (0.2-1.0); TOTAL PROTEIN 5.7 g/dL (6.4-8.2)
[2019-05-13 21:30] VITALS: BP 128/67
[2019-05-13] MEDS ORDERED: HEPARIN PF 500 UNIT/5 ML DISP.SYRIN. IVP ONE (22:15)
== END 2019-05-13 21:56 | disposition home or self-care (01) ==
LOC: ER 19:11
DX: K92.1 Melena (principal); R19.7 Diarrhea, unspecified; K64.4 Residual hemorrhoidal skin tags; J44.9 Chronic obstructive pulmonary disease, unspecified; I10 Essential (primary) hypertension; E03.9 Hypothyroidism, unspecified; Z90.49 Acquired absence of other specified parts of digestive tract; Z98.890 Other specified postprocedural states; Z90.710 Acquired absence of both cervix and uterus; Z88.1 Allergy status to other antibiotic agents; Z88.8 Allergy status to other drugs, medicaments and biological substances; Z88.6 Allergy status to analgesic agent
CPT/HCPCS: 36415; 80053; 82274; 85025; 85610; 85730; 86850; 86900; 86901; 96360; 96361; 96374; 99284; J7030

== ENCOUNTER 2019-06-16 12:53 | Emergency (ER) | payer MEDICARE, BC ==
[~2019-06-16] VITALS: Ht 157.5 cm; Wt 63.0 kg
[2019-06-16] MEDS ORDERED: IV NORMAL SALINE 1,000ML 1,000 ML IV ONE (13:00)
--- NOTE | 2019-06-16 13:42 | PHYS DOC ---
Past History Past Medical History: Cancer, COPD, GERD, Hypertension, Hypothyroid, Other Additional Past Medical Histor: stomach ulcers Past Surgical History: Cholecystectomy, , Hysterectomy Smoking: Non-smoker Alcohol Use: None Drug Use: None General Adult EDM: Chief Complaint: BLOODY STOOL HPI: HPI: 79-year-old female presents with dark stools. Patient is concerned about GI bleed. She had a GI bleed back in February where she had to go to and get units of blood. They found a couple of bleeding ulcers. The patient is contin ued to have on and off again dark stools. She is taking Protonix 40 mg twice daily. She has been taking this as prescribed. For the last 10 days, she has had black stool with every bowel movement. She is more concerned now because she feels like she is getting more weak and her stool is more running. This is similar to the pattern last time. She denies fever chills. She has no other complaints at this time. She is not on any antiplatelets or anticoagulants. Review of Systems: Review of Systems: Constitutional: Denies fever or chills Eyes: Denies change in visual acuity HENT: Denies nasal congestion or sore throat Respiratory: Denies cough or shortness of breath Cardiovascular: Denies chest pain or edema GI: Denies abdominal pain, nausea, vomiting, bloody stools or diarrhea : Dark stool Musculoskeletal: Denies back pain or joint pain Integument: Denies rash Neurologic: Denies headache, focal weakness or sensory changes Endocrine: Denies polyuria or polydipsia Lymphatic: Denies swollen glands Psychiatric: Denies depression or anxiety Heart Score: Risk Factors: Risk Factors: DM, Current or recent (<one month) smoker, HTN, HLP, family history of CAD, obesity. Risk Scores: Score 0 - 3: 2.5% MACE over next 6 weeks - Discharge Home Score 4 - 6: 20.3% MACE over next 6 weeks - Admit for Clinical Observation Score 7 - 10: 72.7% MACE over next 6 weeks - Early Invasive Strategies Current Medications: Current Meds: Current Medications Medications (Trade) Dose Ordered Sig/Delmi Start Time Stop Time Status Last Admin Dose Admin Sodium Chloride 1,000 ml @ 1,000 mls/hr 1X ONCE 06/16/19 13:00 06/16/19 13:59 Allergies: Allergies: Allergies Coded Allergies Type Severity Reaction Last Updated Verified Tetracyclines Allergy Intermediate Unknown 03/04/15 Yes adhesive Allergy Intermediate 03/04/15 Yes amoxicillin Allergy Intermediate tingling sensation all over 10/26/15 Yes cefotaxime Allergy Intermediate 03/04/15 Yes ciprofloxacin Allergy Intermediate 12/02/16 Yes clavulanic acid Allergy Intermediate tingling sensation all over 10/26/15 Yes clindamycin Allergy Intermediate 03/04/15 Yes tramadol Allergy Intermediate 12/02/16 Yes vancomycin Allergy Intermediate 03/04/15 Yes dexamethasone Adverse Reaction Mild 01/26/19 Yes Physical Exam: PE: Constitutional: Well developed, well nourished, no acute distress, non-toxic appearance. [] HENT: Normocephalic, atraumatic, bilateral external ears normal, oropharynx moist, no oral exudates, nose normal. [] Eyes: PERRLA, EOMI, conjunctiva normal, no discharge. [] Neck: Normal range of motion, no tenderness, supple, no stridor. [] Cardiovascular: Heart rate 85, regular rhythm, no murmur [] Lungs & Thorax: Bilateral breath sounds clear to auscultation [] Abdomen: Bowel sounds normal, soft, no tenderness, no masses, no pulsatile masses. [] Skin: Warm, dry, no erythema, no rash. [] Back: No tenderness, no CVA tenderness. [] Extremities: No tenderness, no cyanosis, no clubbing, ROM intact, no edema. [] Neurologic: Alert and oriented X 3, normal motor function, normal sensory function, no focal deficits noted. [] Psychologic: Affect normal, judgement normal, mood normal. Rectal: Normal external exam except for 2 small hemorrhoids. No obvious blood on digital rectal exam. No significant pain. [] Current Patient Data: Vital Signs: Vital Signs Date Time Temp Pulse Resp B/P (MAP) Pulse Ox O2 Delivery O2 Flow Rate FiO2 06/16/19 13:32 98.0 88 18 160/90 (113) 96 Room Air EKG: EKG: [] Radiology/Procedures: Radiology/Procedures: [] Course & Med Decision Making: Course & Med Decision Making Pertinent Labs and Imaging studies reviewed. (See chart for details) The patient's labs are unremarkable. Her hemoglobin is 12.3 and her stool occult was negative. She does not appear to be having a GI bleed at this time. Her fatigue does not appear to be related to anemia. I do not see any concerning findings. Patient does not meet admission criteria. She is stable for discharge at this time. [] Bibion Disclaimer: Dragronnie Disclaimer: This electronic medical record was generated, in whole or in part, using a voice recognition dictation system. Departure Departure: Impression: Primary Impression: Rectal bleeding Disposition: HOME, SELF-CARE Condition: STABLE Referrals: ZAIDA BOBBY MD (PCP) Patient Instructions: Rectal Bleeding, [id number] JANNET ALONSO DO Jun 16, 2019 13:42
[2019-06-16 13:45] LABS: BASO # 0.1 x10^3/uL (0.0-0.2); BASO % 2 % (0-3); EOS # 0.4 x10^3/uL (0.0-0.7); EOS % 7 % (0-3); HEMATOCRIT 37.3 % (36.0-47.0); HEMOGLOBIN 12.3 g/dL (12.0-15.5); LYMPH # 1.2 x10^3/uL (1.0-4.8); LYMPH % 25 % (24-48); MEAN CORPUSCULAR HEMOGLOBIN 31 pg (25-35); MEAN CORPUSCULAR HGB CONC 33 g/dL (31-37); MEAN CORPUSCULAR VOLUME 94 fL (79-100); MONO # 0.4 x10^3/uL (0.0-1.1); MONO % 9 % (0-9); NEUT # 2.9 x10^3uL (1.8-7.7); NEUT % 57 % (31-73); PLATELET COUNT 145 x10^3/uL (140-400); RED BLOOD COUNT 3.98 x10^6/uL (3.50-5.40); RED CELL DISTRIBUTION WIDTH 15.8 % (11.5-14.5)
[2019-06-16 13:55] LABS: CALCIUM 8.6 mg/dL (8.5-10.1); CREATININE 1.4 mg/dL (0.6-1.0); GFR 36.4; POTASSIUM 3.7 mmol/L (3.5-5.1)
[2019-06-16 14:01] LABS: ALBUMIN 3.2 g/dL (3.4-5.0); ALBUMIN/GLOBULIN RATIO 1.1 (1.0-1.7); TOTAL BILIRUBIN 0.4 mg/dL (0.2-1.0)
[2019-06-16 14:23] LABS: FECAL OB PT NEGATIVE (NEG)
[2019-06-16 14:52] LABS: BILIRUBIN,URINE NEG (NEG); CLARITY,URINE CLEAR; COLOR,URINE STRAW; GLUCOSE,URINE NEG (NEG); NITRITE,URINE NEG (NEG); UROBILINOGEN,URINE 0.2 mg/dL (0.2 mg/dL)
[2019-06-16 14:53] LABS: BACTERIA,URINE 0 /HPF (0-FEW); SQUAMOUS EPITHELIAL CELL,UR MANY /LPF; YEAST,URINE PRESENT /HPF
[2019-06-16 15:12] VITALS: BP 157/83
[2019-06-16] MEDS ORDERED: HEPARIN PF 500 UNIT/5 ML DISP.SYRIN. ONE (15:12)
[2019-06-16] MEDS ORDERED: HEPARIN PF 500 UNIT/5 ML DISP.SYRIN. IVP ONE (15:30)
== END 2019-06-16 15:20 | disposition home or self-care (01) ==
LOC: ER 12:53
DX: K62.5 Hemorrhage of anus and rectum (principal); K64.9 Unspecified hemorrhoids; J44.9 Chronic obstructive pulmonary disease, unspecified; K21.9 Gastro-esophageal reflux disease without esophagitis; I10 Essential (primary) hypertension; E03.9 Hypothyroidism, unspecified; Z88.1 Allergy status to other antibiotic agents; Z88.6 Allergy status to analgesic agent; Z88.8 Allergy status to other drugs, medicaments and biological substances
CPT/HCPCS: 36415; 80053; 81001; 82274; 85025; 85610; 85730; 86850; 86900; 86901; 96374; 99283-25; J7030

== ENCOUNTER 2019-10-07 17:44 | Emergency (ER) | payer MEDICARE, BC ==
[~2019-10-07] VITALS: Ht 157.5 cm; Wt 63.0 kg
[~2019-10-07 17:44] MED LIST changes: -ASCO500T2 PO; +ASCO500T4 PO
[2019-10-07] MEDS ORDERED: LINE600T12 PO (18:34)
--- NOTE | 2019-10-07 18:35 | PHYS DOC ---
Past History Past Medical History: Cancer, COPD, GERD, Hypertension, Hypothyroid, Other Additional Past Medical Histor: stomach ulcers Past Surgical History: Cholecystectomy, , Hysterectomy Smoking: Non-smoker Alcohol Use: None Drug Use: None General Adult EDM: Chief Complaint: WOUND CHECK HPI: HPI: 79-year-old female with recent diagnosis of skin cancer presents with concern for possible infection around site to left choi where cancer was recently removed 9 days ago. Reports of the last several days had noticed some increased redness around site of incision that was closed with suture repair. Patient reports she was started by her doctor on Keflex. Reports symptoms and redness became worse today. Patient denies any fever or chills. Denies immune compromise status. Denies recent trauma. Review of Systems: Review of Systems: Constitutional: Denies fever or chills Musculoskeletal: Denies back pain or joint pain Integument: Reports redness around postoperative site to left choi Neurologic: Denies headache, focal weakness or sensory changes Complete systems were reviewed and found to be within normal limits, except as d ocumented in this note. Allergies: Allergies: Allergies Coded Allergies Type Severity Reaction Last Updated Verified Tetracyclines Allergy Intermediate Unknown 03/04/15 Yes adhesive Allergy Intermediate 03/04/15 Yes amoxicillin Allergy Intermediate tingling sensation all over 10/26/15 Yes cefotaxime Allergy Intermediate 03/04/15 Yes ciprofloxacin Allergy Intermediate 12/02/16 Yes clavulanic acid Allergy Intermediate tingling sensation all over 10/26/15 Yes clindamycin Allergy Intermediate 03/04/15 Yes tramadol Allergy Intermediate 12/02/16 Yes vancomycin Allergy Intermediate 03/04/15 Yes dexamethasone Adverse Reaction Mild 01/26/19 Yes Physical Exam: PE: Constitutional: Well developed, well nourished, no acute distress, non-toxic appearance HENT: Normocephalic, atraumatic Eyes: Conjunctiva normal, no discharge Neck: Normal range of motion, supple Cardiovascular: Left PT and DP +2, cap refill less than 2 seconds Lungs & Thorax: No respiratory distress, equal chest rise and fall Skin: Warm, dry, 8 cm site of closure to anterior left choi with central eschar and surrounding erythema consistent for cellulitis. No purulence noted. Extremities: Wound as above, ROM intact, no edema Neurologic: Alert and oriented X 3, no focal deficits noted Psychologic: Affect normal, judgment normal Current Patient Data: Vital Signs: Vital Signs Date Time Temp Pulse Resp B/P (MAP) Pulse Ox O2 Delivery O2 Flow Rate FiO2 10/07/19 17:44 97.5 80 18 160/67 (98) 97 Room Air EKG: EKG: [] Radiology/Procedures: Radiology/Procedures: [] Course & Med Decision Making: Course & Med Decision Making Patient presents for postoperative wound check at site of recently excised skin cancer. Patient has intact sutures and was started on Keflex due to concern for cellulitis. Patient with significant list of allergies to multiple medications. Patient also currently taking azithromycin preemptively. Given list of allergies and concern for MRSA decision to start oral linezolid. Prescription provided. Patient advised that if symptoms continue to worsen patient may require admission for IV antibiotics. Advised may be best to present to emergency department associated at hospital where her surgeon practices. Patient advised to continue previous practice of dressing wound with bacitracin and to continue use of Keflex. Patient stable for discharge with outpatient follow-up with PCP. Discussed findings and plan with patient, who acknowledges understanding and agreement. Gordo Disclaimer: Gordo Disclaimer: This electronic medical record was generated, in whole or in part, using a voice recognition dictation system. Departure Departure: Impression: Primary Impression: Encounter for postoperative wound check Additional Impression: Cellulitis and abscess of left leg Disposition: 01 HOME/RESIDENCE PRIOR TO ADM Condition: STABLE Referrals: ZAIDA BOBBY MD (PCP) Patient Instructions: Cellulitis, [id number], Wound Check Additional Instructions: Do not soak your wound. You may shower. Clean wound daily with soap and water. Change dressing 3 times daily. Use previously prescribed antibiotic ointment with each dressing change. If symptoms worsen you may need to present to a hospital for admission and treatment with IV antibiotics. It may be best to present to the hospital that your surgeon is associated with for continuity of care. Scripts Linezolid (ZYVOX) 600 Mg Tablet 600 MG PO BID for Cellulitis, #20 TAB Prov: DAVID MCCALL DO 10/07/19 Justification of Admission: Justification of Admission: Justification of Admission Dx: N/A DAVID MCCALL DO Oct 07, 2019 18:34
[2019-10-07 18:42] VITALS: BP 149/78
== END 2019-10-07 18:44 | disposition home or self-care (01) ==
LOC: ER 17:44
DX: Z48.01 Encounter for change or removal of surgical wound dressing (principal); L02.416 Cutaneous abscess of left lower limb; L03.116 Cellulitis of left lower limb; J44.9 Chronic obstructive pulmonary disease, unspecified; K21.9 Gastro-esophageal reflux disease without esophagitis; I10 Essential (primary) hypertension; E03.9 Hypothyroidism, unspecified; Z88.1 Allergy status to other antibiotic agents; Z88.8 Allergy status to other drugs, medicaments and biological substances
CPT/HCPCS: 99281

== ENCOUNTER → 2020-04-03 | Outpatient (CLI) | payer MEDICARE, BC ==
[2020-02-07 11:38] VITALS: BP 124/72
[~2020-04-03] MED LIST changes: -BUPR-192 PO; +BUPR150T7 PO; -CETI10TA24 PO; +CETI10TA74 PO; +LINE600T12 PO; -MECL12.573 PO; +MECL12.574 PO; -PANT40TA5 PO; +PANT40TA6 PO; +[UNRECOGNIZED DRUG - CODE] PO; -[UNRECOGNIZED DRUG - CODE] PO
== END ==
LOC: LAB 13:00
PROVIDERS: ATTEND Nurse Anesthetist, Certified Registered
DX: Z01.812 Encounter for preprocedural laboratory examination (principal); Z20.822 Contact with and (suspected) exposure to COVID-19
CPT/HCPCS: C9803; U0003

== ENCOUNTER → 2020-04-06 | Day surgery (SDC) | payer MEDICARE, BC ==
[~2020-04-06] MED LIST changes: +HEPARIN PF 500 UNIT/5 ML DISP.SYRIN. IVP ONE; +IPRATRPIUM/ALBUTEROL 0.5/2.5MG 3 ML NEBU. NEB PRN; +IV RINGERS SOLUTION,LACTATED 1,000 ML IV SCH; +LIDOCAINE 2% PF 5 ML VIAL. ONE; +MIDAZOLAM HCL PF 2 MG/2 ML VIAL. IV ONE; +ONDANSETRON PF 4 MG/2 ML VIAL. IV PRN; +PROPOFOL 10,000 MCG/ML (20ML) VIAL IV ONE
[2020-04-06 12:50] VITALS: BP 148/71
== END | disposition home or self-care (01) ==
LOC: SURG 10:25
PROVIDERS: ATTEND Internal Medicine Gastroenterology
DX: R13.10 Dysphagia, unspecified (principal); R12 Heartburn; K22.2 Esophageal obstruction; K21.9 Gastro-esophageal reflux disease without esophagitis; I25.10 Atherosclerotic heart disease of native coronary artery without angina pectoris; I13.0 Hypertensive heart and chronic kidney disease with heart failure and stage 1 through stage 4 chronic kidney disease, or unspecified chronic kidney disease; N18.9 Chronic kidney disease, unspecified; I50.9 Heart failure, unspecified; E78.00 Pure hypercholesterolemia, unspecified; G47.30 Sleep apnea, unspecified; E66.9 Obesity, unspecified; M19.90 Unspecified osteoarthritis, unspecified site; E03.9 Hypothyroidism, unspecified; F32.9 Major depressive disorder, single episode, unspecified; Z88.6 Allergy status to analgesic agent; Z88.8 Allergy status to other drugs, medicaments and biological substances; Z79.899 Other long term (current) drug therapy; Z79.82 Long term (current) use of aspirin; Z87.01 Personal history of pneumonia (recurrent); Z90.710 Acquired absence of both cervix and uterus; Z98.891 History of uterine scar from previous surgery; Z87.440 Personal history of urinary (tract) infections; Z96.653 Presence of artificial knee joint, bilateral; Z98.890 Other specified postprocedural states; Z83.3 Family history of diabetes mellitus; Z82.3 Family history of stroke; Z85.89 Personal history of malignant neoplasm of other organs and systems; Z90.49 Acquired absence of other specified parts of digestive tract; Z82.49 Family history of ischemic heart disease and other diseases of the circulatory system
CPT/HCPCS: 43453; J2001; J2704; J7120; 43450

== ENCOUNTER → 2020-10-31 | Outpatient (CLI) | payer MEDICARE, BC ==
[2020-08-01 10:26] VITALS: BP 164/97
[~2020-10-31] MED LIST changes: +BUPR150T21 PO; -BUPR150T7 PO; +HEPARIN PF 500 UNIT/5 ML DISP.SYRIN. ONE; -IPRATRPIUM/ALBUTEROL 0.5/2.5MG 3 ML NEBU. NEB PRN; -IV RINGERS SOLUTION,LACTATED 1,000 ML IV SCH; -LIDOCAINE 2% PF 5 ML VIAL. ONE; -MECL12.574 PO; +MECL12.582 PO; -MIDAZOLAM HCL PF 2 MG/2 ML VIAL. IV ONE; -ONDANSETRON PF 4 MG/2 ML VIAL. IV PRN; -PROPOFOL 10,000 MCG/ML (20ML) VIAL IV ONE
[2020-10-31 13:03] LABS: BASO # 0.1 x10^3/uL (0.0-0.2); BASO % 1 % (0-3); EOS # 0.4 x10^3/uL (0.0-0.7); EOS % 6 % (0-3); HEMOGLOBIN 12.2 g/dL (12.0-15.5); LYMPH % 13 % (24-48); MEAN CORPUSCULAR HEMOGLOBIN 31 pg (25-35); MEAN CORPUSCULAR HGB CONC 33 g/dL (31-37); MEAN CORPUSCULAR VOLUME 93 fL (79-100); MONO # 0.4 x10^3/uL (0.0-1.1); MONO % 5 % (0-9); NEUT # 5.7 x10^3uL (1.8-7.7); NEUT % 75 % (31-73); PLATELET COUNT 170 x10^3/uL (140-400); RED BLOOD COUNT 3.97 x10^6/uL (3.50-5.40); RED CELL DISTRIBUTION WIDTH 14.2 % (11.5-14.5); WHITE BLOOD COUNT 7.6 x10^3/uL (4.0-11.0)
[2020-10-31 13:15] LABS: ALBUMIN 3.5 g/dL (3.4-5.0); CALCIUM 8.6 mg/dL (8.5-10.1); CREATININE 1.6 mg/dL (0.6-1.0); GFR 31.1; PHOSPHORUS 3.5 mg/dL (2.6-4.7)
[2020-11-01 13:09] LABS: CALCIUM PTH 8.9 mg/dL (8.7-10.3); CREATININE PTH 1.29 mg/dL (0.57-1.00); PTH INTACT 60 pg/mL (15-65)
== END | disposition home or self-care (01) ==
LOC: OPINF 12:09
PROVIDERS: ATTEND Nurse Practitioner Adult Health
DX: I13.0 Hypertensive heart and chronic kidney disease with heart failure and stage 1 through stage 4 chronic kidney disease, or unspecified chronic kidney disease (principal); N18.30 Chronic kidney disease, stage 3 unspecified; D63.1 Anemia in chronic kidney disease; I50.9 Heart failure, unspecified; I25.10 Atherosclerotic heart disease of native coronary artery without angina pectoris; K21.9 Gastro-esophageal reflux disease without esophagitis; E78.00 Pure hypercholesterolemia, unspecified; E03.9 Hypothyroidism, unspecified; F32.9 Major depressive disorder, single episode, unspecified; E66.9 Obesity, unspecified; M19.90 Unspecified osteoarthritis, unspecified site; Z45.2 Encounter for adjustment and management of vascular access device; Z79.899 Other long term (current) drug therapy; Z79.82 Long term (current) use of aspirin; Z96.653 Presence of artificial knee joint, bilateral; Z90.49 Acquired absence of other specified parts of digestive tract; Z90.710 Acquired absence of both cervix and uterus
CPT/HCPCS: 36415; 80069; 82728; 83540; 83550; 83970; 85025; 96523

== ENCOUNTER 2020-12-01 11:39 | Emergency (ER) | payer MEDICARE, BC ==
[~2020-12-01] VITALS: Ht 157.5 cm; Wt 68.0 kg
[~2020-12-01 11:39] MED LIST changes: -HEPARIN PF 500 UNIT/5 ML DISP.SYRIN. IVP ONE; -HEPARIN PF 500 UNIT/5 ML DISP.SYRIN. ONE; +POTA-121 PO
[2020-12-01] MEDS ORDERED: ORPHENADRINE CITRATE 60 MG/2 ML VIAL. IM ONE (12:30)
[2020-12-01] MEDS ORDERED: ORPHENADRINE CITRATE 60 MG/2 ML VIAL. IV ONE (12:45)
--- NOTE | 2020-12-01 13:19 | PHYS DOC ---
Past History Past Medical History: Cancer, COPD, GERD, Hypertension, Hypothyroid, Other Additional Past Medical Histor: stomach ulcers [id number] (DARLENE STRICKLAND) Past Surgical History: Cholecystectomy, , Hysterectomy Additional Past Surgical Histo: Breast reduction, skin CA removed from face,leg (DARLENE STRICKLAND) Smoking: Non-smoker Alcohol Use: None Drug Use: None (DARLENE STRICKLAND) General Adult EDM: Chief Complaint: BACK PAIN OR INJURY HPI: HPI: Patient is a 80 year old female with history of scoliosis who presents with left-sided low back pain. Patient states her pain began about 2200 last night without trauma or injury. In route, patient received 100 fentanyl, and she now rates her pain 6/10 and describes it as a constant stabbing pain. The pain does not radiate and is worse with movement. Patient denies dysuria, hematuria, abdominal pain, N/V/D, constipation. Patient attempted to use a lidocaine patch at home without symptom relief. Patient has no other complaints at this time. (DARLENE STRICKLAND) Review of Systems: Review of Systems: Constitutional: Denies fever or chills Respiratory: Denies new onset cough or shortness of breath Cardiovascular: Denies chest pain or edema GI: See HPI : See HPI Musculoskeletal: See HPI Integument: Denies abrasion, ecchymosis, rash Neurologic: Denies headache, focal weakness or sensory changes (DARLENE STRICKLAND) Current Medications: Current Meds: Current Medications Medications (Trade) Dose Ordered Sig/Delmi Start Time Stop Time Status Last Admin Dose Admin Orphenadrine Citrate (Norflex) 60 mg 1X ONCE 12/01/20 12:45 12/01/20 12:46 DC 12/01/20 12:40 60 MG (DARLENE STRICKLAND) Allergies: Allergies: Allergies Coded Allergies Type Severity Reaction Last Updated Verified Tetracyclines Allergy Intermediate Unknown 04/06/20 Yes adhesive Allergy Intermediate 04/06/20 Yes amoxicillin Allergy Intermediate tingling sensation all over 04/06/20 Yes cefotaxime Allergy Intermediate 04/06/20 Yes ciprofloxacin Allergy Intermediate 04/06/20 Yes clavulanic acid Allergy Intermediate tingling sensation all over 04/06/20 Yes clindamycin Allergy Intermediate 03/04/15 Yes tramadol Allergy Intermediate 12/02/16 Yes vancomycin Allergy Intermediate 03/04/15 Yes Sulfa (Sulfonamide Antibiotics) Allergy Unknown 12/01/20 Yes doxycycline Allergy Unknown 12/01/20 Yes dexamethasone Adverse Reaction Mild 01/26/19 Yes (DARLENE STRICKLAND) Physical Exam: PE: Constitutional: Well developed, well nourished, no acute distress, non-toxic appearance. Neck: Normal range of motion, no tenderness, supple, no stridor. Cardiovascular: Heart rate regular rhythm, no murmur. Lungs & Thorax: Bilateral breath sounds clear to auscultation. Abdomen: Bowel sounds normal, soft, no tenderness, no masses, no pulsatile masses. Skin: Warm, dry, no erythema, no rash. Back: No bony tenderness, left sided paraspinal tenderness around L3, no CVA tenderness bilaterally. Extremities: No tenderness, no cyanosis, no clubbing, ROM intact, no edema. Neurologic: Alert and oriented X 3, normal motor function, normal sensory function, no focal deficits noted. (DARLENE STRICKLAND) Current Patient Data: Vital Signs: Vital Signs Date Time Temp Pulse Resp B/P (MAP) Pulse Ox O2 Delivery O2 Flow Rate FiO2 12/01/20 11:44 98.0 82 16 160/70 (100) 92 Room Air (DARLENE STRICKLAND) Heart Score: C/O Chest Pain: No (DARLENE STRICKLAND) Course & Med Decision Making: Course & Med Decision Making Pertinent Labs and Imaging studies reviewed. (See chart for details) Patient work-up will determine kidney stone/renal infection versus muscle spasm. Patient states the stabbing nature to her pain has resolved after Norflex. She still rates her pain 6 out of 10, but describes it as a soreness. At this time, UA has not been run. UA was eventually obtained and ran. Patient does not have UTI. She will be discharged with Norflex to treat muscle spasm. (DARLENE STRICKLAND) Dragon Disclaimer: Dragon Disclaimer: This electronic medical record was generated, in whole or in part, using a voice recognition dictation system. (DARLENE STRICKLAND) Attending Co-Sign The patient was seen and interviewed as well as examined at the bedside. The chart was reviewed. The case was discussed. Agree with the plan of care. (JANNET ALONSO DO) Departure Departure: Impression: Primary Impression: Muscle spasm Disposition: HOME / SELF CARE / HOMELESS Condition: STABLE Referrals: ZAIDA BOBBY MD (PCP) Patient Instructions: Muscle Cramps Additional Instructions: You're provided with a muscle relaxer, which should provide pain relief. You should also take [id number] anti-inflammatory medication. The combination of these two should alleviate your symptoms within the next couple of days. Please return to the emergency department if your pain does not improve. Scripts Orphenadrine Citrate (ORPHENADRINE CITRATE) 100 Mg Tablet.er 1 TAB PO BID for muscle spasm for 5 Days, #10 TAB 1 Refill Take 1 tablet by mouth twice a day as needed for muscle spasm pain. Prov: DARLENE STRICKLAND 12/01/20 DARLENE STRICKLAND Dec 01, 2020 13:19 JANNET ALONSO DO Dec 02, 2020 06:17
[2020-12-01 15:27] LABS: BACTERIA,URINE MOD /HPF (0-FEW); BILIRUBIN,URINE NEG (NEG); CLARITY,URINE CLOUDY; COLOR,URINE YELLOW; GLUCOSE,URINE NEG (NEG); NITRITE,URINE NEG (NEG); RBC,URINE OCC /HPF (0-2); SQUAMOUS EPITHELIAL CELL,UR MANY /LPF; UROBILINOGEN,URINE 0.2 mg/dL (0.2 mg/dL); WBC,URINE OCC /HPF (0-4); YEAST,URINE PRESENT /HPF
[2020-12-01 15:40] VITALS: BP 150/80
[2020-12-01] MEDS ORDERED: ORPH-16 PO (15:45)
== END 2020-12-01 15:50 | disposition home or self-care (01) ==
LOC: ER 11:39
DX: M62.830 Muscle spasm of back (principal); Z88.1 Allergy status to other antibiotic agents; Z88.0 Allergy status to penicillin; Z88.5 Allergy status to narcotic agent; Z90.49 Acquired absence of other specified parts of digestive tract; Z90.710 Acquired absence of both cervix and uterus; J44.9 Chronic obstructive pulmonary disease, unspecified; K21.9 Gastro-esophageal reflux disease without esophagitis
CPT/HCPCS: 81001; 87086; 96374; 99285; J2360; 87077; 87186

== ENCOUNTER 2020-12-03 08:35 | Emergency (ER) | payer MEDICARE, BC ==
[~2020-12-03] VITALS: Ht 157.5 cm; Wt 68.0 kg
[~2020-12-03 08:35] MED LIST changes: +ORPH-16 PO
[2020-12-03] MEDS ORDERED: MELOXICAM 7.5 MG TABLET PO ONE (09:00)
[2020-12-03] MEDS ORDERED: methylPREDNISolone SOD SUCC PF 40 MG/ML VIAL. IM ONE (09:15)
--- NOTE | 2020-12-03 09:35 | PHYS DOC ---
Past History Past Medical History: Cancer, COPD, GERD, Hypertension, Hypothyroid, Other Additional Past Medical Histor: stomach ulcers HLA-B27 (TOR SANTOS APRN) Past Surgical History: Cholecystectomy, , Hysterectomy Additional Past Surgical Histo: Breast reduction, skin CA removed from face,leg (TOR SANTOS APRN) Smoking: Non-smoker Alcohol Use: None Drug Use: None (TOR SANTOS APRN) General Adult EDM: Chief Complaint: MULTIPLE COMPLAINTS HPI: HPI: Patient is a 80-year-old female being seen in the ER for left low back pain, headache and left wrist pain. Patient was seen in this ER 2 days ago for the headaches and left low back pain, she was diagnosed with muscle spasm and given muscle relaxers to go home with. Patient states that she has been taking this medications and Tylenol is not helping her pain and she woke up this morning wi th left wrist pain. She denies any injuries. She has a history of arthritis, chronic back pain and COPD. She wears 2 L of oxygen at home as needed. Patient states that this pain in her back in [place] different than her typical arthritis pain. Patient's headache is located in the occiput of her head. She rates it 7 out of 10. She denies any photophobia, phonophobia, vision changes, vomiting. (TOR SANTOS APRN) Review of Systems: Review of Systems: 14 body systems of the review of systems have been reviewed. See HPI for pertinent positive and negative responses, otherwise all other systems are negative, nonpertinent or noncontributory (TOR SANTOS APRN) Current Medications: Current Meds: Current Medications Medications (Trade) Dose Ordered Sig/Delmi Start Time Stop Time Status Last Admin Dose Admin Meloxicam (Mobic) 5 mg DAILY 12/04/20 09:00 UNV Methylprednisolone Sodium Succinate (SOLU-Medrol 40MG VIAL) 80 mg 1X ONCE 12/03/20 09:15 12/03/20 09:16 UNV (TOR SANTOS APRN) Allergies: Allergies: Allergies Coded Allergies Type Severity Reaction Last Updated Verified Tetracyclines Allergy Intermediate Unknown 12/03/20 Yes adhesive Allergy Intermediate 12/03/20 Yes amoxicillin Allergy Intermediate tingling sensation all over 12/03/20 Yes cefotaxime Allergy Intermediate 12/03/20 Yes ciprofloxacin Allergy Intermediate 12/03/20 Yes clavulanic acid Allergy Intermediate tingling sensation all over 12/03/20 Yes clindamycin Allergy Intermediate 12/03/20 Yes tramadol Allergy Intermediate 12/03/20 Yes vancomycin Allergy Intermediate 12/03/20 Yes Sulfa (Sulfonamide Antibiotics) Allergy Unknown 12/03/20 Yes doxycycline Allergy Unknown 12/03/20 Yes dexamethasone Adverse Reaction Mild 12/03/20 Yes (TOR SANTOS APRN) Physical Exam: PE: Constitutional: Well developed, well nourished, no acute distress, non-toxic appearance. [] HENT: Normocephalic, atraumatic, bilateral external ears normal, oropharynx moist, no oral exudates, nose normal. [] Eyes: PERRLA, EOMI, conjunctiva normal, no discharge. [] Neck: Normal range of motion, no bony cervical spinal tenderness, no nuchal riggidity, supple, no stridor. [] Cardiovascular:Heart rate regular rhythm, no murmur [] Lungs & Thorax: Bilateral breath sounds mild wheezing noted throughout, wearing supplemental oxygen, non-labored Abdomen: Bowel sounds normal, soft, no tenderness, no masses, no pulsatile masses. [] Skin: Warm, dry, no erythema, no rash. [] Back: No bony spinal tenderness, left paraspinal tenderness with palpation, no CVA tenderness. [] Extremities: No tenderness, no cyanosis, no clubbing, ROM intact, no edema. [] Neurologic: Alert and oriented X 3, normal motor function, normal sensory function, no focal deficits noted. [] Psychologic: Affect normal, judgement normal, mood normal. [] (TOR SANTOS APRN) Current Patient Data: Vital Signs: Vital Signs Date Time Temp Pulse Resp B/P (MAP) Pulse Ox O2 Delivery O2 Flow Rate FiO2 12/03/20 09:03 98.1 89 22 158/86 (110) 89 Room Air (TOR SANTOS APRN) EKG: EKG: [] (TOR SANTOS APRN) Radiology/Procedures: Radiology/Procedures: PROCEDURE: WRIST 3V LEFT XR LT WRIST 3VIEWS DATE: 12/03/2020 9:30 AM INDICATION: wrist pain COMPARISON: None. FINDINGS: Bones: There is no evidence of acute fracture or dislocation. Joints: Severe degenerative changes of the first CMC joint with bulky osteophytes and degenerative subluxation. Miscellaneous: None. IMPRESSION: No acute fracture. Electronically signed by: Cisco Majano MD (12/03/2020 10:43 AM) [id number] DICTATED AND SIGNED BY: CISCO MAJANO MD DATE: 12/03/20 1038 CC: TOR SANTOS APRN; ZAIDA BOBBY MD ~MTH0 0 []PROCEDURE: CT LUMBAR SPINE WO CONTRAST EXAMINATION: CT LUMBAR SPINE WO, 12/03/2020 9:30 AM CLINICAL INDICATION: Low back pain COMPARISON: CT lumbar spine 07/10/2017 TECHNIQUE: Helical CT imaging performed of the lumbar spine without the use of intravenous contrast. Sagittal and coronal reformats were obtained. One or more of the following individualized dose reduction techniques were utilized for this examination: 1. Automated exposure control 2. Adjustment of the mA and/or kV according to patient size 3. Use of iterative reconstruction technique. FINDINGS: There is no acute fracture. There is unchanged severe levoscoliosis of the lumbar spine centered at L3. No listhesis. There is mild to moderate disc space narrowing throughout the lumbar spine with small anterior osteophytes. There is severe facet arthrosis at L4-L5 and L5-S1. There is an unchanged partially calcified central disc extrusion extending inferiorly at T12-L1. This measures 1.2 x 0.7 x 1.7 cm in transverse by AP by CC diameters causing probable mild canal narrowing. There are asymmetric broad-based disc bulges at multiple levels. Probable mild canal narrowing at L4-L5. There is unchanged moderate right foraminal narrowing at L2-L3 and L3-L4, mild bilateral foraminal narrowing at L4-L5. Moderate left foraminal narrowing at L5-S1. There is severe facet arthrosis L4-L5 and L5-S1. Gallbladder is surgically absent. There is calcified aortoiliac atherosclerosis. IMPRESSION: 1. No acute osseous abnormality. 2. Unchanged severe lumbar scoliosis with mild to moderate degenerative disc disease and severe lower lumbar facet arthrosis, as described. Electronically signed by: Kala Whiteside MD (12/03/2020 10:36 AM) [id number] DICTATED AND SIGNED BY: KALA WHITESIDE MD DATE: 12/03/20 1018 CC: TOR SANTOS APRN; ZAIDA BOBBY MD ~MTH0 0 (TOR SANTOS APRN) Heart Score: C/O Chest Pain: No Risk Factors: Risk Factors: DM, Current or recent (<one month) smoker, HTN, HLP, family history of CAD, obesity. Risk Scores: Score 0 - 3: 2.5% MACE over next 6 weeks - Discharge Home Score 4 - 6: 20.3% MACE over next 6 weeks - Admit for Clinical Observation Score 7 - 10: 72.7% MACE over next 6 weeks - Early Invasive Strategies (TOR SANTOS APRN) Course & Med Decision Making: Course & Med Decision Making Pertinent Labs and Imaging studies reviewed. (See chart for details) [] Patient is a 80-year-old female being seen in the ER for left lumbar, left wrist and head pain. Patient has a history of arthritis and was seen in this ER 2 days prior for similar complaints. Patient was diagnosed with a muscle spasm and given a muscle relaxer. Patient's lumbar spine imaged in the ER as well as her left wrist. She was treated with a steroid and NSAID. Patient was placed on 2 L via nasal cannula that she wears at home as needed for shortness of breath due to her COPD. Patient was noted to have mild wheezing throughout. Pa tient was 89% on room air and on 2 L of oxygen she is satting 93%. Patient will be given a breathing treatment in the ER. Patient had a urinalysis performed 2 days prior and it was negative for any acute findings. Following breathing treatment, patient's lung sounds are clear. She states that she has inhalers at home that she can use. Following treatment in the ER, patient states that her pain has improved and she can move her hand and her wrist without any pain. X- ray and CT imaging showed degenerative changes and osteoarthritis. Patient advised to take anti-inflammatory medications at home to help with her pain. I discussed with patient all findings and diagnostic testing as well as the need to follow-up with PCP for further evaluation and treatment or return to the ER if any new or worsening symptoms. Strict return precautions were also discussed at length. Patient voiced understanding and agreement with the plan. Patient is hemodynamically stable at the time of disposition. (TOR SANTOS APRN) Dragon Disclaimer: Dragon Disclaimer: This electronic medical record was generated, in whole or in part, using a voice recognition dictation system. (TOR SANTOS APRN) Attending Co-Sign The patient was seen and interviewed as well as examined at the bedside. The chart was reviewed. The case was discussed. Agree with the plan of care. (JANNET ALONSO DO) Departure Departure: Impression: Primary Impression: Arthritis Disposition: HOME / SELF CARE / HOMELESS Condition: GOOD Referrals: ZAIDA BOBBY MD (PCP) Patient Instructions: Arthritis, Nonspecific Additional Instructions: You were seen in the ER today for low back pain and wrist pain. Imaging was performed and it was negative for any acute fractures but did show degenerative changes consistent with arthritis. You were treated in the ER with anti- inflammatory medications. At home you can take anti-inflammatory medications such as ibuprofen and naproxen and you can also take Tylenol. Please follow-up with your primary care provider tomorrow regarding your ER visit. If you develop worsening of your pain, loss of bowel or bladder, numbness or tingling in your groin or down your legs, inability to bear weight or ambulate or any new or worsening concerns please return to the ER. EMERGENCY DEPARTMENT GENERAL DISCHARGE INSTRUCTIONS Thank you for coming to [facility] (ED) today and trusting us with you care. We trust that you had a positivie experience in our Emergency Department. If you wish to speak to the department management, you may call the director at [phone]. YOUR FOLLOW UP INSTRUCTIONS ARE FOLLOWS: 1. Do you have a private Doctor? If you do not have a private doctor, please ask for a resource list of physicians or clinics that may be able to assist you with follow up care. 2. The Emergency Physician has interpreted your x-rays. The X-Ray specialist will also review them. If there is a change in the findings, you will be notified in 48 hours when at all possible. 3. A lab test or culture has been done, your results will be reviewed and you will be notified if you need a change in treatment. ADDITIONAL INSTRUCTIONS AND INFORMATION: 1. Your care today has been supervised by a physician who is specially trained in emergency care. Many problems require more than one evaluation for a complete diagnosis and treatment. We recommend that you schedule your follow up appointment as recommended to ensure complete treatment of you illness or injury. If you are unable to obtain follow up care and continue to have a problem, or if your condition worsens, we recommend that you return to the ED. 2. We are not able to safely determine your condition over the phone nor are we able to give sound medical advice over the phone. For these safety reasons, if you call for medical advice we will ask you to come to the ED for further evaluation. 3. If you have any questions regarding these discharge instructions please call the ED at [phone]. SAFETY INFORMATION: In the interest of safety, wellness, and injury prevention; we encourage you to wear your sealbelt, if you smoke; quite smoking, and we encourage family to use a protective helmet for bicycling and other sporting events that present an increased risk for head injury. IF YOUR SYMPTOMS WORSEN OR NEW SYMPTOMS DEVELOP, OR YOU HAVE CONCERNS ABOUT YOUR CONDITION; OR IF YOUR CONDITION WORSENS WHILE YOU ARE WAITING FOR YOUR FOLLOW UP APPOINTMENT; EITHER CONTACT YOUR PRIMARY CARE DOCTOR, THE PHYSICIAN WHOSE NAME AND NUMBER YOU WERE GIVEN, OR RETURN TO THE ED IMMEDIATELY. TOR SANTOS APRN Dec 03, 2020 09:35 JANNET ALONSO DO Dec 03, 2020 17:08
[2020-12-03] MEDS ORDERED: IPRATRPIUM/ALBUTEROL 0.5/2.5MG 3 ML NEBU. NEB ONE (09:45)
--- NOTE | 2020-12-03 10:39 | RAD ---
EXAMINATION: CT LUMBAR SPINE WO, 12/03/2020 9:30 AM CLINICAL INDICATION: Low back pain COMPARISON: CT lumbar spine 07/10/2017 TECHNIQUE: Helical CT imaging performed of the lumbar spine without the use of intravenous contrast. Sagittal and coronal reformats were obtained. One or more of the following individualized dose reduction techniques were utilized for this examinat ion: 1. Automated exposure control 2. Adjustment of the mA and/or kV according to patient size 3. Use of iterative reconstruction technique. FINDINGS: There is no acute fracture. There is unchanged severe levoscoliosis of the lumbar spine terrie tered at L3. No listhesis. There is mild to moderate disc space narrowing throughout the lumbar spine with small anterior osteophytes. There is severe facet arthrosis at L4-L5 and L5-S1. There is an unchanged partially calcified central disc extrusion extending inferiorly at T12-L1. This measures 1.2 x 0.7 x 1.7 cm in transverse by AP by CC diameters causing probable mild canal narrowin g. There are asymmetric broad-based disc bulges at multiple levels. Probable mild canal narrowing at L4- L5. There is unchanged moderate right foraminal narrowing at L2-L3 and L3-L4, mild bilateral foramina l narrowing at L4-L5. Moderate left foraminal narrowing at L5-S1. There is severe facet arthrosis L4-L5 and L5-S1. Gallbladder is surgically absent. There is calcified aortoiliac atherosclerosis. IMPRESSION: 1. No acute osseous abnormality. 2. Unchanged severe lumbar scoliosis with mild to moderate degenerative disc disease and severe lower lumbar facet arthrosis, as described. Electronically signed by: Kala Whiteside MD (12/03/2020 10:36 AM) [id number]
--- NOTE | 2020-12-03 10:45 | RAD ---
XR LT WRIST 3VIEWS DATE: 12/03/2020 9:30 AM INDICATION: wrist pain COMPARISON: None. FINDINGS: Bones: There is no evidence of acute fracture or dislocation. Joints: Severe degenerative changes of the first CMC joint with bulky osteophytes and degenerative awad bluxation. Miscellaneous: None. IMPRESSION: No acute fracture. Electronically signed by: Vidal Majano MD (12/03/2020 10:43 AM) [id number]
[2020-12-03 11:48] VITALS: BP 135/105
== END 2020-12-03 11:48 | disposition home or self-care (01) ==
LOC: ER 08:35
DX: M19.90 Unspecified osteoarthritis, unspecified site (principal); M54.5 Low back pain; R51.9 Headache, unspecified; M25.532 Pain in left wrist; G89.29 Other chronic pain; J44.9 Chronic obstructive pulmonary disease, unspecified; K21.9 Gastro-esophageal reflux disease without esophagitis; I10 Essential (primary) hypertension; E03.9 Hypothyroidism, unspecified; Z90.49 Acquired absence of other specified parts of digestive tract; Z90.710 Acquired absence of both cervix and uterus; Z88.1 Allergy status to other antibiotic agents; Z88.8 Allergy status to other drugs, medicaments and biological substances; Z88.2 Allergy status to sulfonamides
CPT/HCPCS: 72131; 73110; 94640; 96372; 99285; J2920

== ENCOUNTER 2021-04-14 10:38 | Observation (INO) | payer MEDICARE, BC ==
[~2021-04-14] VITALS: Ht 157.5 cm; Wt 67.0 kg
[2021-04-14] MEDS ORDERED: methylPREDNISolone SOD SUCC PF 125 MG/2 ML VIAL. IV ONE (11:00)
[2021-04-14] MEDS ORDERED: IPRATRPIUM/ALBUTEROL 0.5/2.5MG 3 ML NEBU. NEB ONE (11:00)
--- NOTE | 2021-04-14 11:09 | PHYS DOC ---
Past History Past Medical History: Cancer, COPD, GERD, Hypertension, Hypothyroid, Other Additional Past Medical Histor: stomach ulcers [id number] Past Surgical History: Cholecystectomy, , Hysterectomy Additional Past Surgical Histo: Breast reduction, skin CA removed from face,leg Smoking: Non-smoker Alcohol Use: None Drug Use: None General Adult EDM: Chief Complaint: SHORTNESS OF BREATH HPI: HPI: 80-year-old female presents with shortness of breath. Patient has a long history of COPD. She has been having coughing with productive sputum for several days. She decided come in today because she is getting worse. She has been taking her breathing treatments. She denies chest pain. She has oxygen at home that she can use at 2 L. Her oxygen saturation is normal with those 2 L. The patient does not typically use her oxygen at home however. She believes she has wheezing. Review of Systems: Review of Systems: Constitutional: Denies fever or chills Eyes: Denies change in visual acuity HENT: Denies nasal congestion or sore throat Respiratory: Cough with shortness of breath Cardiovascular: Denies chest pain or edema GI: Denies abdominal pain, nausea, vomiting, bloody stools or diarrhea : Denies dysuria Musculoskeletal: Denies back pain or joint pain Integument: Denies rash Neurologic: Denies headache, focal weakness or sensory changes Endocrine: Denies polyuria or polydipsia Lymphatic: Denies swollen glands Psychiatric: Denies depression or anxiety Current Medications: Current Meds: Current Medications Medications (Trade) Dose Ordered Sig/Delmi Start Time Stop Time Status Last Admin Dose Admin Albuterol/ Ipratropium (Duoneb) 3 ml 1X ONCE 04/14/21 11:00 04/14/21 11:01 UNV Methylprednisolone Sodium Succinate (SOLU-Medrol 125MG VIAL) 125 mg 1X ONCE 04/14/21 11:00 04/14/21 11:01 UNV Allergies: Allergies: Allergies Coded Allergies Type Severity Reaction Last Updated Verified Tetracyclines Allergy Intermediate Unknown 12/03/20 Yes adhesive Allergy Intermediate 12/03/20 Yes amoxicillin Allergy Intermediate tingling sensation all over 12/03/20 Yes cefotaxime Allergy Intermediate 12/03/20 Yes ciprofloxacin Allergy Intermediate 12/03/20 Yes clavulanic acid Allergy Intermediate tingling sensation all over 12/03/20 Yes clindamycin Allergy Intermediate 12/03/20 Yes tramadol Allergy Intermediate 12/03/20 Yes vancomycin Allergy Intermediate 12/03/20 Yes Sulfa (Sulfonamide Antibiotics) Allergy Unknown 12/03/20 Yes doxycycline Allergy Unknown 12/03/20 Yes dexamethasone Adverse Reaction Mild 12/03/20 Yes Physical Exam: PE: Constitutional: Well developed, well nourished, no acute distress, non-toxic appearance. [] HENT: Normocephalic, atraumatic, bilateral external ears normal, oropharynx moist, no oral exudates, nose normal. [] Eyes: PERRLA, EOMI, conjunctiva normal, no discharge. [] Neck: Normal range of motion, no tenderness, supple, no stridor. [] Cardiovascular: Heart rate regular rhythm, no murmur [] Lungs & Thorax: Bilateral breath sounds with diffuse wheezing throughout [] Abdomen: Bowel sounds normal, soft, no tenderness, no masses, no pulsatile masses. [] Skin: Warm, dry, no erythema, no rash. [] Back: No tenderness, no CVA tenderness. [] Extremities: No tenderness, no cyanosis, no clubbing, ROM intact, no edema. [] Neurologic: Alert and oriented X 3, normal motor function, normal sensory function, no focal deficits noted. [] Psychologic: Affect normal, judgement normal, mood normal. [] EKG: EKG: [] Radiology/Procedures: Radiology/Procedures: [] Impressions: Single view chest dated 04/14/2021 11:40 AM: COMPARISON: 03/28/2018 Clinical Indication: Shortness of breath. Findings: Single upright portable exam of the chest was performed. Heart and mediastinal contours are stable. Right-sided port in place, unchanged. Lungs are clear. No consolidation or pleural effusion. No pneumothorax. There is scoliotic curvature of the thoracolumbar spine. IMPRESSION: No acute radiographic abnormality. Stable findings compared to 01/26/2019. Electronically signed by: Rajeev An MD (04/14/2021 11:40 AM) [id number] DICTATED AND SIGNED BY: RAJEEV AN MD DATE: 04/14/21 1140 CC: JANNET ALONSO DO; ZAIDA BOBBY MD ~MTH0 0 Heart Score: C/O Chest Pain: N/A Risk Factors: Risk Factors: DM, Current or recent (<one month) smoker, HTN, HLP, family history of CAD, obesity. Risk Scores: Score 0 - 3: 2.5% MACE over next 6 weeks - Discharge Home Score 4 - 6: 20.3% MACE over next 6 weeks - Admit for Clinical Observation Score 7 - 10: 72.7% MACE over next 6 weeks - Early Invasive Strategies Course & Med Decision Making: Course & Med Decision Making Pertinent Labs and Imaging studies reviewed. (See chart for details) Patient has extensive bilateral wheezing of the lungs. We have treated her with DuoNeb treatment and 125 Solu-Medrol. She is still wheezing throughout all lung serrano. She has a mildly low potassium, but her other labs are essentially noncontributory. I will admit the patient to hospital for COPD exacerbation. COVID-19 test is negative. Spoke with hospitalist, Dr. Mann and he has accepted the patient for admission. [] Dragon Disclaimer: Dragon Disclaimer: This electronic medical record was generated, in whole or in part, using a voice recognition dictation system. Departure Departure: Impression: Primary Impression: COPD exacerbation Disposition: ADMITTED INPATIENT Admitting Physician: Edmundo Mann Condition: STABLE Referrals: ZAIDA BOBBY MD (PCP) JANNET ALONSO DO Apr 14, 2021 11:09
[2021-04-14 11:39] LABS: BASO # 0.1 x10^3/uL (0.0-0.2); BASO % 1 % (0-3); EOS % 26 % (0-3); HEMATOCRIT 36.2 % (36.0-47.0); HEMOGLOBIN 11.8 g/dL (12.0-15.5); LYMPH # 1.7 x10^3/uL (1.0-4.8); LYMPH % 23 % (24-48); MEAN CORPUSCULAR HEMOGLOBIN 30 pg (25-35); MEAN CORPUSCULAR HGB CONC 33 g/dL (31-37); MEAN CORPUSCULAR VOLUME 93 fL (79-100); MONO # 0.8 x10^3/uL (0.0-1.1); MONO % 11 % (0-9); NEUT % 39 % (31-73); PLATELET COUNT 152 x10^3/uL (140-400); RED CELL DISTRIBUTION WIDTH 14.2 % (11.5-14.5); WHITE BLOOD COUNT 7.6 x10^3/uL (4.0-11.0)
--- NOTE | 2021-04-14 11:43 | RAD ---
Single view chest dated 04/14/2021 11:40 AM: COMPARISON: 03/28/2018 Clinical Indication: Shortness of breath. Findings: Single upright portable exam of the chest was performed. Heart and mediastinal contours are stable. R ight-sided port in place, unchanged. Lungs are clear. No consolidation or pleural effusion. No pneumo thorax. There is scoliotic curvature of the thoracolumbar spine. IMPRESSION: No acute radiographic abnormality. Stable findings compared to 01/26/2019. Electronically signed by: Rajeev An MD (04/14/2021 11:40 AM) [id number]
[2021-04-14 11:44] LABS: CALCIUM 8.1 mg/dL (8.5-10.1); CREATININE 1.4 mg/dL (0.6-1.0); GFR 36.3; POTASSIUM 3.2 mmol/L (3.5-5.1)
[2021-04-14 11:50] LABS: ALBUMIN 2.9 g/dL (3.4-5.0); TOTAL BILIRUBIN 0.6 mg/dL (0.2-1.0); TOTAL PROTEIN 5.8 g/dL (6.4-8.2)
[2021-04-14] MEDS ORDERED: ONDANSETRON PF 4 MG/2 ML VIAL. IVP PRN (12:15)
[2021-04-14 12:41] LABS: INFLUENZA A PATIENT NEGATIVE (NEGATIVE); INFLUENZA B PATIENT NEGATIVE (NEGATIVE)
[2021-04-14] MEDS ORDERED: MEROPENEM 1 GM in IV NORMAL SALINE 100ML 100 ML IV SCH (14:00)
[2021-04-14 15:00] VITALS: BP 135/79
[2021-04-14] MEDS ORDERED: ASCO500C PO (15:55)
[2021-04-14] MEDS ORDERED: DILT240T PO (15:57)
[2021-04-14] MEDS ORDERED: LIDO700A21 TP (15:58)
[2021-04-14] MEDS ORDERED: LEVO75TA5 PO (15:58)
[2021-04-14] MEDS: IPRATRPIUM/ALBUTEROL 0.5/2.5MG 3 ML NEBU. NEB SCH (16:00)
[2021-04-14] MEDS ORDERED: ROFL500T7 PO (16:01)
[2021-04-14] MEDS ORDERED: CALC500T54 PO (16:01)
[2021-04-14] MEDS ORDERED: CYAN100016 SL (16:01)
[2021-04-14] MEDS ORDERED: ACETAMINOPHEN 500 MG TABLET PO PRN (16:15)
[2021-04-14] MEDS: MEROPENEM 1 GM in IV NORMAL SALINE 100ML 100 ML IV SCH (17:43)
--- NOTE | 2021-04-14 18:14 | NUR ---
The patient, DYLAN JACKSON, 80 y/o, F admitted by NATHAN VENTURA MD, was given written information regarding hospital policies, unit procedures and contact persons. Valuables were checked and LEFT IN PATIENTS ROOM.
[2021-04-14 19:00] VITALS: BP 127/69
[2021-04-14] MEDS ORDERED: PANTOPRAZOLE 40 MG TABLET. PO SCH (21:00)
[2021-04-15 00:12] VITALS: BP 123/76
[2021-04-15] MEDS: IPRATRPIUM/ALBUTEROL 0.5/2.5MG 3 ML NEBU. NEB SCH ×2 (04:22→06:56)
[2021-04-15] MEDS: MEROPENEM 1 GM in IV NORMAL SALINE 100ML 100 ML IV SCH (05:27)
[2021-04-15 05:51] VITALS: BP 145/80
[2021-04-15] MEDS ORDERED: LEVOTHYROXINE 75 MCG TABLET PO SCH (06:00)
[2021-04-15 08:39] VITALS: BP 145/80
[2021-04-15] MEDS ORDERED: CETIRIZINE HCL 10 MG TABLET PO SCH (09:00)
[2021-04-15] MEDS ORDERED: ROFLUMILAST 500 MCG TABLET PO SCH (09:00)
[2021-04-15] MEDS ORDERED: CITALOPRAM 20 MG TABLET. PO SCH (09:00)
[2021-04-15] MEDS ORDERED: LIDOCAINE (700MG/PATCH) PATCH. TP SCH (09:00)
[2021-04-15] MEDS ORDERED: ESTRADIOL 1 MG TABLET PO SCH (09:00)
[2021-04-15] MEDS ORDERED: FUROSEMIDE 40 MG TABLET PO SCH (09:00)
[2021-04-15] MEDS ORDERED: ASPIRIN CHEWABLE 81 MG TABLET. PO SCH (09:00)
[2021-04-15] MEDS ORDERED: NON FORMULARY ITEM (Tiotropium Bromide (Spiriva) 18 MCG) IH PRN (10:15)
--- NOTE | 2021-04-15 11:15 | HP ---
DATE OF SERVICE: 04/15/2021 ADMIT DATE: 04/14/2021 ATTENDING PHYSICIAN: Edmundo Mann MD CHIEF COMPLAINT: Shortness of breath. HISTORY OF PRESENT ILLNESS: The patient is a 80-year-old female with a longstanding history of COPD. She was exposed to secondhand smoke, she was not a smoker as though. She presented to the ED with increasing shortness of breath, having some cough and productive sputum for 2 days. Chest x-ray showed no acute infiltrate. Supplemental oxygen was added. She was given steroids. She was admitted to the hospital with an exacerbation of COPD and early bronchitis. PAST MEDICAL HISTORY: Significant for skin cancer, COPD, gastroesophageal reflux disease, hypertension, hypothyroidism and stomach ulcer. PAST SURGICAL HISTORY: Cholecystectomy, section, hysterectomy, breast reduction surgery, skin cancer removal from face and leg. SOCIAL HISTORY: She is a nonsmoker, nondrinker. ALLERGIES: SHE HAS MULTIPLE ALLERGIES INCLUDING SULFA DRUGS, TETRACYCLINE, ADHESIVE TAPE, AMOXICILLIN, CEFOTAXIME, CIPROFLOXACIN, CLAVULANIC ACID, CLINDAMYCIN, DEXAMETHASONE, DOXYCYCLINE, TRAMADOL AND VANCOMYCIN, EXACT REACTION TO THESE ABOVE NAMED DRUGS UNCLEAR. MEDICATIONS: Scheduled medicines include the following: She was scheduled to take tiotropium bromide, albuterol, Lipitor, diltiazem, aspirin, acetaminophen, Lexapro, calcium, potassium, Lasix, fluticasone, Spiriva, Protonix, low-dose prednisone, estradiol and Lidoderm patch along with B12 and ascorbic acid. FAMILY HISTORY: Noncontributory. REVIEW OF SYSTEMS: Significant for the cough and shortness of breath. She lives with her who smoked heavily. She is a nonsmoker. She has had all 3 of her COVID shots, two initial vaccines and a booster. All other systems reviewed and turned to be negative. PHYSICAL EXAMINATION: GENERAL: When I saw her, this is a pleasant elderly female. VITAL SIGNS: Initial vital signs showed a blood pressure of 145/80. Her oxygen saturation improved to 95% on room air. By the time I saw her, she was afebrile. Pulse is 80 and regular. HEENT: Head is without trauma. Pupils are reactive. Sclerae nonicteric. Oropharynx clear. NECK: Supple, no bruits. LUNGS: Clear. Very minimal wheezing noted. CARDIOVASCULAR: Showed regular heart tones. No gallops. ABDOMEN: Soft. EXTREMITIES: Without edema. NEUROLOGIC: Function focally intact. Speech is fluent. PERTINENT LABORATORY STUDIES: The hemoglobin is 11.8 g/dL with a white count of 7600. Electrolytes within normal range. Potassium 3.2 mEq, asymptomatic. This will be followed as an outpatient. Creatinine 1.4 mg/dL. Serology negative for influenza and coronavirus. Chest x-ray was clear without any acute infiltrates or decompensation. ASSESSMENT: 1. A 80-year-old female with early bronchitis. 2. Exacerbation of chronic obstructive pulmonary disease. 3. History of hypertension. 4. Degenerative arthritis. 5. Hypothyroidism, on replacement. 6. History of gastroesophageal reflux disease. PLAN: 1. Observation status. 2. Empiric steroids. 3. Empiric Rocephin. 4. Continue home meds. VERITO DR: Vidal TID: [id number] CC: Qamar Thorpe
--- NOTE | 2021-04-15 11:51 | NUR ---
DISHCHARGE NOTE PT TELE REMOVED. PT DE-ACCESSED PORT HERSELF AND DID NOT WAIT ON RN TO DO SO. PT A&O X4 AND DENIES ANY PAIN OR DISCOMFORT. PT AMBULATED OUT OF HOSPITAL PICKED UP BY SON. PAPERWORK WAS GONE OVER, SCRIPTS WERE GIVEN, EDUCATION WAS ADMINISTERED.
[2021-04-15] MEDS ORDERED: HEPARIN PF 500 UNIT/5 ML DISP.SYRIN. IVP ONE (12:00)
--- NOTE | 2021-04-15 15:50 | DS ---
DATE OF DISCHARGE: 04/15/2021 ATTENDING PHYSICIAN: Dr. Mann. FINAL DISCHARGE DIAGNOSES: 1. Exacerbation of chronic obstructive pulmonary disease. 2. Mild early bronchitis. 3. Chronic obstructive pulmonary disease by history. 4. Essential hypertension. 5. Hypothyroidism, on replacement. 6. Gastroesophageal reflux disease. HISTORY AND PHYSICAL: The patient is a 80-year-old female with a known diagnosis of chronic obstructive pulmonary disease. She was admitted from the ED with increasing shortness of breath, dyspnea, mild productive cough and some hypoxemia. PHYSICAL EXAMINATION: Please see the dictated note. PERTINENT LABORATORY AND X-RAY STUDIES: Her chest x-ray was clear. Hemoglobin 11.8 grams, white count 7500. Electrolytes within normal range. Creatinine 1.4 mg percent, potassium 3.2 mEq, on Lasix. This will be followed up as an outpatient. She was symptomatic. She is on supplementation. COURSE IN THE HOSPITAL: She was treated with empiric antibiotics in the form of Rocephin. She has multiple drug allergies noted. She tolerated well. Steroids have helped. She was much better, breathing improved, oxygen saturations were 95% on room air. On the next hospital day, I sent her home with 1 week's worth of cephalexin 500 mg p.o. t.i.d. and prednisone 40 mg p.o. daily for 7 days and stop. Other home meds are unchanged. She will continue her scheduled albuterol, ascorbic acid, aspirin, Lipitor, calcium, cholecalciferol, vitamin B12, diltiazem, Lexapro, estradiol, fluticasone, Synthroid, Lidoderm patch, potassium supplementation, Protonix, Daliresp and Spiriva doses unchanged. She was discharged then in stable condition with explicit drug and followup care. She has been fully vaccinated. Her COVID swabs were negative. ROSEMARIE/DEMETRIO/JANELLE DR: Vidal TID: [id number] CC: Qamar Thorpe
[2021-04-16] MEDS ORDERED: ATORVASTATIN CALCIUM 20 MG TABLET PO SCH (09:00)
== END 2021-04-15 12:06 | disposition home or self-care (01) ==
LOC: ER 10:38 → INTOOBSV 12:14 → ER HOLD 12:14 → 1 SOUTH 13:22
PROVIDERS: ADMIT Hospitalist; ATTEND Hospitalist
DX: J44.1 Chronic obstructive pulmonary disease with (acute) exacerbation (principal); Z20.822 Contact with and (suspected) exposure to COVID-19; I10 Essential (primary) hypertension; M19.90 Unspecified osteoarthritis, unspecified site; E03.9 Hypothyroidism, unspecified; K21.9 Gastro-esophageal reflux disease without esophagitis; J40 Bronchitis, not specified as acute or chronic; R09.02 Hypoxemia; Z77.22 Contact with and (suspected) exposure to environmental tobacco smoke (acute) (chronic); Z85.828 Personal history of other malignant neoplasm of skin; Z87.11 Personal history of peptic ulcer disease; Z88.9 Allergy status to unspecified drugs, medicaments and biological substances; Z90.710 Acquired absence of both cervix and uterus; Z90.49 Acquired absence of other specified parts of digestive tract; Z79.899 Other long term (current) drug therapy; Z98.890 Other specified postprocedural states
CPT/HCPCS: 36415; 71045; 80053; 85025; 87428; 94640; 96365; 96366; 96375; 99284; G0378; J2185; J2930; U0003; G0379

== ENCOUNTER → 2021-04-22 | Outpatient (CLI) | payer MEDICARE, BC ==
[2021-04-15 08:39] VITALS: BP 145/80
[~2021-04-22] MED LIST changes: +ASCO500C PO; +CALC500T54 PO; +CYAN100016 SL; +DILT240T PO
--- NOTE | 2021-04-22 11:10 | RAD ---
EXAM: Chest, 2 views. HISTORY: Shortness of breath. COMPARISON: 04/14/2021 FINDINGS: 2 views of the chest are obtained. There is hyperinflation due to inspiratory effort or emp hysema. There is no infiltrate, pleural effusion or pneumothorax. The heart is normal in size. There is a right chest wall port catheter with the tip in the superior vena cava. IMPRESSION: No acute pulmonary finding. Hyperinflation due to emphysema or inspiratory effort. Electronically signed by: Alaina Stein MD (04/22/2021 11:08 AM) [id number]
== END ==
LOC: RAD 10:24
PROVIDERS: ATTEND Family Medicine
DX: J98.11 Atelectasis (principal); J44.1 Chronic obstructive pulmonary disease with (acute) exacerbation; R06.02 Shortness of breath; Z95.818 Presence of other cardiac implants and grafts
CPT/HCPCS: 71046; 84145

== ENCOUNTER 2021-05-30 17:00 | Emergency (ER) | payer MEDICARE, BC ==
[~2021-05-30] VITALS: Ht 157.5 cm; Wt 67.0 kg
--- NOTE | 2021-05-30 18:20 | PHYS DOC ---
Past History Past Medical History: Cancer, COPD, GERD, Hypertension, Hypothyroid, Other Additional Past Medical Histor: stomach ulcers HLA-B27 Past Surgical History: Other Additional Past Surgical Histo: Breast reduction, skin CA removed from face,leg Smoking: Non-smoker Alcohol Use: None Drug Use: None General Adult EDM: Chief Complaint: BACK PAIN OR INJURY HPI: HPI: 81-year-old female presents after fall at home. She was going out to the car this morning between 930 and 10 AM. She missed the edge of the step and fell onto the ground. She hit the right side of her head on the fender of her car and the right side of her low back on the step. The patient was dazed but not knocked unconscious. She was able to get up and go about her day. She talked to her son who lives out of state and he insisted that she come in the emergency room for evaluation. Patient does have a headache and some right low back pain. She is able to ambulate. She has had no vomiting, dizziness, weakness, altered sensation. Review of Systems: Review of Systems: Constitutional: Denies fever or chills Eyes: Denies change in visual acuity HENT: Denies nasal congestion or sore throat Respiratory: Denies cough or shortness of breath Cardiovascular: Denies chest pain or edema GI: Denies abdominal pain, nausea, vomiting, bloody stools or diarrhea : Denies dysuria Musculoskeletal: Right-sided low back pain. Integument: Denies rash Neurologic: Headache. Denies focal weakness or sensory changes Endocrine: Denies polyuria or polydipsia Lymphatic: Denies swollen glands Psychiatric: Denies depression or anxiety Allergies: Allergies: Allergies Coded Allergies Type Severity Reaction Last Updated Verified Tetracyclines Allergy Intermediate Unknown 04/14/21 Yes adhesive Allergy Intermediate 04/14/21 Yes amoxicillin Allergy Intermediate tingling sensation all over 04/14/21 Yes cefotaxime Allergy Intermediate 04/14/21 Yes ciprofloxacin Allergy Intermediate 04/14/21 Yes clavulanic acid Allergy Intermediate tingling sensation all over 04/14/21 Yes clindamycin Allergy Intermediate 12/03/20 Yes tramadol Allergy Intermediate 12/03/20 Yes vancomycin Allergy Intermediate 12/03/20 Yes Sulfa (Sulfonamide Antibiotics) Allergy Unknown 12/03/20 Yes doxycycline Allergy Unknown 12/03/20 Yes dexamethasone Adverse Reaction Mild 12/03/20 Yes Physical Exam: PE: Constitutional: Well developed, well nourished, no acute distress, non-toxic appearance. [] HENT: Normocephalic, atraumatic, bilateral external ears normal, oropharynx moist, no oral exudates, nose normal. [] Eyes: PERRLA, EOMI, conjunctiva normal, no discharge. [] Neck: Normal range of motion, no tenderness, supple, no stridor. [] Cardiovascular:Heart rate regular rhythm, no murmur [] Lungs & Thorax: Bilateral breath sounds clear to auscultation [] Abdomen: Bowel sounds normal, soft, no tenderness, no masses, no pulsatile masses. [] Skin: Warm, dry, no erythema, no rash. [] Back: No bony tenderness in the lumbar, mild right paraspinal soft tissue tenderness, no ecchymosis or swelling. [] Extremities: No tenderness, no cyanosis, no clubbing, ROM intact, no edema. [] Neurologic: Alert and oriented X 3, normal motor function, normal sensory function, no focal deficits noted. [] Psychologic: Affect normal, judgement normal, mood normal. [] EKG: EKG: [] Radiology/Procedures: Radiology/Procedures: [] Impressions: Exam Date: 05/30/2021 6:[address] HEAD/BRAIN WO Indication: Reason: fall, headache / Spl. Instructions: / History: . TECHNIQUE: Head CT was performed without intravenous contrast. One or more of the following dose reduction techniques were utilized: *Automated exposure control (AEC) *Adjustment of mA and/or kV according to patient size *Use of iterative reconstruction technique *CT scan done according to ALARA, or ALARA/IMAGE GENTLY COMPARISON: April 04, 2019 FINDINGS: The ventricles and sulci are normal for the patient's stated age. Patchy ill- defined low attenuation areas in the subcortical and periventricular white matter bilaterally are consistent with microvascular disease. There is no evidence of acute intracranial hemorrhage, extra-axial collection, mass effect, midline shift, or acute territorial infarct. No lesion of the skull base or the calvarium is seen. The visualized paranasal sinuses, mastoid air cells and orbits are normal in appearance. IMPRESSION: No evidence for acute intracranial abnormality. Mild microvascular disease. Electronically signed by: Mookie Nassar MD (05/30/2021 7:01 PM) [facility] DICTATED AND SIGNED BY: MOOKIE NASSAR MD DATE: 05/30/21 [id number] CC: JANNET ALONSO DO; ZAIDA BOBBY MD ~ Heart Score: C/O Chest Pain: N/A Risk Factors: Risk Factors: DM, Current or recent (<one month) smoker, HTN, HLP, family history of CAD, obesity. Risk Scores: Score 0 - 3: 2.5% MACE over next 6 weeks - Discharge Home Score 4 - 6: 20.3% MACE over next 6 weeks - Admit for Clinical Observation Score 7 - 10: 72.7% MACE over next 6 weeks - Early Invasive Strategies Course & Med Decision Making: Course & Med Decision Making Pertinent Labs and Imaging studies reviewed. (See chart for details) The patient's head CT is negative for acute findings. Her lumbar films are negative for acute findings. She does have significant scoliosis. The patient is reassured by these results. She is stable for discharge at this time. [] Dragon Disclaimer: Dragon Disclaimer: This electronic medical record was generated, in whole or in part, using a voice recognition dictation system. Departure Departure: Impression: Primary Impression: Fall down stairs Disposition: 01 HOME / SELF CARE / HOMELESS Condition: STABLE Referrals: ZAIDA BOBBY MD (PCP) Patient Instructions: Fall Prevention and Home Safety, [id number] JANNET ALONSO DO May 30, 2021 18:20
[2021-05-30 18:21] VITALS: BP 161/91
--- NOTE | 2021-05-30 19:03 | RAD ---
Exam Date: 05/30/2021 6:[address] HEAD/BRAIN WO Indication: Reason: fall, headache / Spl. Instructions: / History: . TECHNIQUE: Head CT was performed without intravenous contrast. One or more of the following dose re duction techniques were utilized: *Automated exposure control (AEC) *Adjustment of mA and/or kV according to patient size *Use of iterative reconstruction technique *CT scan done according to ALARA, or ALARA/IMAGE GENTLY COMPARISON: April 04, 2019 FINDINGS: The ventricles and sulci are normal for the patient's stated age. Patchy ill-defined low attenuation areas in the subcortical and periventricular white matter bilaterally are consistent with microvascu lar disease. There is no evidence of acute intracranial hemorrhage, extra-axial collection, mass ef fect, midline shift, or acute territorial infarct. No lesion of the skull base or the calvarium is se en. The visualized paranasal sinuses, mastoid air cells and orbits are normal in appearance. IMPRESSION: No evidence for acute intracranial abnormality. Mild microvascular disease. Electronically signed by: Jordan Nassar MD (05/30/2021 7:01 PM) [facility]
--- NOTE | 2021-05-30 20:49 | RAD ---
Exam: Lumbar spine 3 views INDICATION: Fall, right lower back pain TECHNIQUE: Frontal and lateral views lumbar spine with spot magnification view of lumbosacral junctio n Comparisons: 12/03/2020 FINDINGS: Scoliotic curvature lumbar spine. Vertebral body heights are well-maintained Multilevel spondylotic changes lumbar spine with diffuse degenerative disc disease and bilateral face t arthropathy. Visualized soft tissues are unremarkable. IMPRESSION: Scoliotic curvature of the thoracolumbar spine with multilevel spondylotic change. Electronically signed by: Jaquelin Alba MD (05/30/2021 8:47 PM) ROHAN
== END 2021-05-30 19:20 | disposition home or self-care (01) ==
LOC: ER 17:00
DX: R51.9 Headache, unspecified (principal); M54.59 Other low back pain; J44.9 Chronic obstructive pulmonary disease, unspecified; K21.9 Gastro-esophageal reflux disease without esophagitis; I10 Essential (primary) hypertension; E03.9 Hypothyroidism, unspecified; Z88.1 Allergy status to other antibiotic agents; Z88.8 Allergy status to other drugs, medicaments and biological substances; Z88.2 Allergy status to sulfonamides; W10.8XXA Fall (on) (from) other stairs and steps, initial encounter; Y93.89 Activity, other specified; Y92.098 Other place in other non-institutional residence as the place of occurrence of the external cause; Y99.8 Other external cause status
CPT/HCPCS: 70450; 72100; 99284